=== PATIENT | female | born 1935 | race Caucasian/White ===

== ENCOUNTER 2020-06-02 09:55 | Outpatient (REF) | payer MEDICARE, SELFPAY ==
[2020-06-02 12:09] LABS: Anion Gap 12 (12-20); Carbon Dioxide 31 mmol/L (22-29); Chloride 102 mmol/L (96-108); Potassium 5.5 mmol/l (3.3-5.1); Sodium 139 mmol/L (135-145)
== END 2020-06-02 09:56 | disposition home or self-care (01) ==
LOC: HO.HMGCLDS 09:55
PROVIDERS: PCP Family Medicine; Visit Provider Family Medicine
DX: E87.5 Hyperkalemia (principal)
CPT/HCPCS: 80051

== ENCOUNTER 2020-06-16 10:03 | Outpatient (REF) | payer MEDICARE, SELFPAY ==
--- NOTE | 2020-06-16 10:08 | MM_ITS ---
EXAMINATION: MM SCREENING DIGITAL BREAST TOMOSYNTHESIS, BILATERAL CLINICAL INFORMATION: Screening. Asymptomatic. The lifetime risk of breast cancer based on the Tyrer-Cuzick Model is 0.3%. COMPARISON: Mammography: June 11, 2019 and studies dating back to January 22, 2012 TECHNIQUE: Digital breast tomosynthesis is performed in both the craniocaudal and mediolateral oblique views along with computer-aided detection (CAD). Synthesized 2D images are generated from the tomosynthesis. FINDINGS: There are scattered areas of fibroglandular density (ACR BI-RADS breast composition Category b). There are no significant masses, abnormal calcifications, or other abnormalities. MM/MM tomosynthesis screening BI IMPRESSION: There are no significant changes from prior study. ASSESSMENT: BI-RADS 1: Negative RECOMMENDATION: Routine annual mammography screening. This patient's information was entered into a reminder system with a target due date for their next mammogram.
== END 2020-06-16 10:04 | disposition home or self-care (01) ==
LOC: HO.MAMMO 10:03
PROVIDERS: Visit Provider Family Medicine
DX: Z12.31 Encounter for screening mammogram for malignant neoplasm of breast (principal)
CPT/HCPCS: 77063; 77067

== ENCOUNTER 2020-09-01 09:30 | Outpatient (REF) | payer MEDICARE, SELFPAY ==
[2020-09-01 11:46] LABS: Anion Gap 14 (12-20); Blood Urea Nitrogen 18 mg/dL (9-16); Carbon Dioxide 30 mmol/L (22-29); Chloride 103 mmol/L (96-108); Estimated Glomerular Filt Rate > 60; Sodium 142 mmol/L (135-145)
[2020-09-01 12:12] LABS: Free T4 (Free Thyroxine) 1.24 ng/dL (0.71-1.85)
== END 2020-09-01 09:31 | disposition home or self-care (01) ==
LOC: HO.HMGCLDS 09:30
PROVIDERS: PCP Family Medicine; Visit Provider Family Medicine
DX: I10 Essential (primary) hypertension (principal); E03.9 Hypothyroidism, unspecified
CPT/HCPCS: 36415; 80051; 82565; 84439; 84520

== ENCOUNTER 2020-09-29 13:32 | Outpatient (REF) | payer MEDICARE, SELFPAY ==
[2020-09-29 16:32] LABS: Imm Gran Abs Auto 0.03 X10*3/uL (0.00-0.03); Imm Gran Pct Auto 0.5 % (0.0-0.4); Lymphocytes Absolute Auto 1.2 X10*3/uL (1.2-4.9); MANUAL DIFF FLAG SCAN; Monocytes Absolute Auto 0.5 X10*3/uL (0.1-1.2); SCAN SMEAR FLAG 1
[2020-09-29 16:34] LABS: Basophils Percent Auto 0.3 % (0-2); Eosinophils Percent Auto 0.3 % (0-4); Hematocrit 35.2 % (37-47); Hemoglobin 10.4 g/dl (12.0-16.0); Lymphocytes Percent Auto 20.6 % (20-40); Mean Corpuscular HGB Conc 29.5 g/dl (31.0-35.0); Mean Corpuscular Hemoglobin 20.2 pg (27.0-33.0); Mean Corpuscular Volume 68.3 fL (80-98); Monocytes Percent Auto 8.5 % (2-11); Neutrophils Percent Auto 69.8 % (45-73); PLT CLUMP 1; Red Blood Count 5.15 X10*6/uL (4.20-5.50); Red Cell Distribution Width 16.7 % (11.0-16.0)
[2020-09-29 16:37] LABS: Glucose Urine UA NEG (NEG); Leukocyte Esterase Urine NEG (NEG); Nitrite Urine NEG (NEG); PH 6.5 (5.0-8.0); Urine Blood TRACE (NEG); Urine Ketones 15 MG/DL (NEG); Urine Protein TRACE MG/DL (NEG-TRACE)
[2020-09-29 16:41] LABS: Appearance Urine CLEAR; Color Urine YELLOW
[2020-09-29 16:51] LABS: Alanine Aminotransferase 21 U/L (0-31); Albumin Level 3.8 g/dL (3.5-5.0); Alkaline Phosphatase 94 U/L (39-117); Anion Gap 13 (12-20); Aspartate Amino Transferase 36 U/L (5-31); Bilirubin Total 0.2 mg/dL (0.0-1.0); Blood Urea Nitrogen 13 mg/dL (9-16); C Reactive Protein 1.27 mg/dL (< or = 0.50); Calcium 8.4 mg/dL (8.4-10.2); Carbon Dioxide 28 mmol/L (22-29); Chloride 99 mmol/L (96-108); Estimated Glomerular Filt Rate 54; Glucose Random 119 mg/dL (60-115); Potassium 4.7 mmol/L (3.3-5.1); Sodium 135 mmol/L (135-145); Total Protein 7.1 g/dL (6.5-8.0)
[2020-09-29 16:53] LABS: Bacteria Urine TRACE /LPF; Squamous Epithelial Cell Urine 1+ /LPF; WBC Urine 0 /HPF (0-4)
[2020-09-29 16:59] LABS: PLT ABN DIST 1; Platelet Count 213 X10*3/uL (160-400); White Blood Count 5.8 X10*3/uL (4.8-10.8)
[2020-09-29 17:02] LABS: SLIDE REVIEW VERIFIED
[2020-09-29 17:12] LABS: Ferritin 30 ng/mL (10-250)
[2020-09-29 18:00] LABS: Erythrocyte Sedimentation Rate 22 MM/HR (0-20)
[2020-10-04 06:31] LABS: Calcitonin <2 pg/mL (<=5)
== END 2020-09-29 13:33 | disposition home or self-care (01) ==
LOC: HO.HMGCLDS 13:32
PROVIDERS: PCP Family Medicine; Visit Provider Family Medicine
DX: R53.1 Weakness (principal); R53.83 Other fatigue; R50.9 Fever, unspecified; Z20.822 Contact with and (suspected) exposure to COVID-19
CPT/HCPCS: 36415; 80053; 81001; 82308; 82728; 85025; 85652; 86140; U0003; U0005

== ENCOUNTER 2021-03-29 08:36 | Outpatient (REF) | payer MEDICARE, SELFPAY ==
[2021-03-29 11:34] LABS: Hemoglobin 10.6 g/dl (12.0-16.0); MANUAL DIFF FLAG SCAN; SCAN SMEAR FLAG 1
[2021-03-29 11:36] LABS: Basophils Absolute Auto 0.1 X10*3/uL (0.0-0.2); Eosinophils Absolute Auto 0.5 X10*3/uL (0.0-0.4); Eosinophils Percent Auto 5.6 % (0-4); Hematocrit 35.9 % (37-47); Imm Gran Abs Auto 0.04 X10*3/uL (0.00-0.03); Imm Gran Pct Auto 0.5 % (0.0-0.4); Lymphocytes Absolute Auto 1.7 X10*3/uL (1.2-4.9); Lymphocytes Percent Auto 20.5 % (20-40); Mean Corpuscular HGB Conc 29.5 g/dl (31.0-35.0); Mean Corpuscular Hemoglobin 19.8 pg (27.0-33.0); Monocytes Absolute Auto 0.6 X10*3/uL (0.1-1.2); Monocytes Percent Auto 7.6 % (2-11); Neutrophils Absolute Auto 5.3 X10*3/uL (2.0-8.3); Neutrophils Percent Auto 64.8 % (45-73); PLT CLUMP 1; Red Blood Count 5.36 X10*6/uL (4.20-5.50); Red Cell Distribution Width 17.5 % (11.0-16.0)
[2021-03-29 11:44] LABS: PLT ABN DIST 1
[2021-03-29 11:50] LABS: Anion Gap 16 (12-20); Blood Urea Nitrogen 16 mg/dL (9-16); Carbon Dioxide 27 mmol/L (22-29); Chloride 103 mmol/L (96-108); Estimated Glomerular Filt Rate > 60; Magnesium 2.4 mg/dL (1.6-2.6); Potassium 5.5 mmol/L (3.3-5.1); Rheumatoid Factor < 15.0 IU/mL (<15.0); Sodium 140 mmol/L (135-145)
[2021-03-29 12:17] LABS: Free T4 (Free Thyroxine) 1.34 ng/dL (0.71-1.85)
[2021-03-29 12:29] LABS: Erythrocyte Sedimentation Rate 23 MM/HR (0-20)
[2021-03-29 12:37] LABS: Platelet Count 275 X10*3/uL (160-400); White Blood Count 8.2 X10*3/uL (4.8-10.8)
[2021-03-29 12:38] LABS: SLIDE REVIEW VERIFIED
== END 2021-03-29 08:37 | disposition home or self-care (01) ==
LOC: HO.HMGCLDS 08:36
PROVIDERS: PCP Family Medicine; Visit Provider Family Medicine
DX: I10 Essential (primary) hypertension (principal); E03.9 Hypothyroidism, unspecified; M19.90 Unspecified osteoarthritis, unspecified site
CPT/HCPCS: 36415; 80051; 82565; 83735; 84439; 84520; 85025; 85652; 86431

== ENCOUNTER 2021-04-18 12:32 | Outpatient (REF) | payer MEDICARE, SELFPAY ==
--- NOTE | ~2021-04-18 | US_ITS ---
EXAMINATION: COLOR-FLOW DUPLEX IMAGING OF THE BILATERAL LOWER EXTREMITY ARTERIAL SYSTEM. VELOCITY MEASUREMENTS THROUGHOUT THE FEMORAL ARTERIES WITH PERIPHERAL ARTERIAL TESTING. Interventional Radiologist: Ranjan Lovell M.D., F.S.I.R., F.A.C.R. CLINICAL INFORMATION: This is an 86-year-old female with peripheral vascular disease with claudication. Comparison: Comparison is made to a previous study dated 04/27/2020. That study demonstrated a right ankle-brachial index of 0.63 with elevated velocities in the distal right superficial femoral artery. It also demonstrated a left ankle-brachial index of 0.85 without focal velocity shift on duplex examination. RIGHT FEMORAL RUNOFF VELOCITIES: The right common femoral artery measures 220 cm/s and biphasic. The right profunda femoral artery is 203 cm/s and is biphasic. Right proximal superficial femoral artery measures 159 cm/s and biphasic. Mid superficial femoral artery is 138 cm/s and biphasic. Distal right superficial femoral artery measures 230 cm/s and is biphasic. Right popliteal velocity measures 89 cm/s and is biphasic. The posterior tibial artery velocity measures 36 cm/s and was monophasic. The right ankle-brachial index is 0.81. LEFT FEMORAL RUNOFF VELOCITIES: The left common femoral artery measures 172 cm/s and biphasic. The left profunda femoral artery is 183 cm/s and is biphasic. Left proximal superficial femoral artery measures 170 cm/s and biphasic. Mid superficial femoral artery is 166 cm/s and biphasic. Distal left superficial femoral artery measures 149 cm/s and is biphasic. Left popliteal velocity measures 90 cm/s and is triphasic. The posterior tibial artery velocity measures 68 cm/s and was monophasic. The left ankle-brachial index is 0.57. US/US arterial duplex LE BI IMPRESSION: 1. There is worsening hemodynamically significant disease within the right lower extremity. There is a high-grade stenosis in the right common femoral artery which is now apparent. There appears to be a high-grade hemodynamically significant stenosis in the distal right superficial femoral artery which was present previously. Overall, this study appears worse when compared to the previous study dated 04/27/2020 and 01/02/2017. However, the ankle-brachial index appears to be improved compared to the previous study. Previously, this measured 0.63 and on the current study it measures 0.81. 2. There is mild hemodynamically significant disease within the left lower extremity by duplex ultrasound without focal area of high-grade stenosis. However, the left ankle-brachial index appears worse and now measures 0.57. Previously, this measured 0.85.
== END 2021-04-18 12:33 | disposition home or self-care (01) ==
LOC: HO.US 12:32
PROVIDERS: PCP Family Medicine; Visit Provider Surgery Vascular Surgery
DX: I73.9 Peripheral vascular disease, unspecified (principal)
CPT/HCPCS: 93923; 93925

== ENCOUNTER → 2021-04-19 10:18 | Outpatient (BNVA) | payer MEDICARE, SELFPAY | PROVIDERS: PCP Family Medicine; Referring Provider Family Medicine; Visit Provider Surgery Vascular Surgery | DX: I73.9 Peripheral vascular disease, unspecified (principal); M72.2 Plantar fascial fibromatosis; I10 Essential (primary) hypertension; E78.00 Pure hypercholesterolemia, unspecified; E03.9 Hypothyroidism, unspecified; Z88.8 Allergy status to other drugs, medicaments and biological substances | CPT/HCPCS: 99212 ==

== ENCOUNTER 2021-04-20 06:03 | Day surgery (SDC) | payer MEDICARE, SELFPAY ==
[2021-04-20] VITALS (7 sets, daily range): BP systolic 133–170; BP diastolic 42–71; PULSE 81–88; RESP 16–20; TEMP 36.9; O2SAT 95–99; BMI 27.9
[2021-04-20 06:31] LABS: MANUAL DIFF FLAG NO
[2021-04-20 06:38] LABS: Basophils Absolute Auto 0.1 X10*3/uL (0.0-0.2); Eosinophils Absolute Auto 0.5 X10*3/uL (0.0-0.4); Eosinophils Percent Auto 5.8 % (0-4); Hematocrit 34.6 % (37-47); Hemoglobin 10.4 g/dl (12.0-16.0); Imm Gran Abs Auto 0.08 X10*3/uL (0.00-0.03); Imm Gran Pct Auto 0.9 % (0.0-0.4); Lymphocytes Absolute Auto 2.2 X10*3/uL (1.2-4.9); Lymphocytes Percent Auto 25.4 % (20-40); Mean Corpuscular HGB Conc 30.1 g/dl (31.0-35.0); Mean Corpuscular Hemoglobin 19.7 pg (27.0-33.0); Mean Corpuscular Volume 65.7 fL (80-98); Monocytes Absolute Auto 0.7 X10*3/uL (0.1-1.2); Monocytes Percent Auto 8.2 % (2-11); Neutrophils Absolute Auto 5.2 X10*3/uL (2.0-8.3); Neutrophils Percent Auto 58.7 % (45-73); Platelet Count 370 X10*3/uL (160-400); Red Blood Count 5.27 X10*6/uL (4.20-5.50); Red Cell Distribution Width 17.4 % (11.0-16.0); White Blood Count 8.8 X10*3/uL (4.8-10.8)
[2021-04-20] MEDS: 0.9 % Sodium Chloride 1,000 ML 100 ML IVCONT (06:43)
[2021-04-20 06:48] LABS: Anion Gap 12 (12-20); Blood Urea Nitrogen 13 mg/dL (9-16); Calcium 9.5 mg/dL (8.4-10.2); Carbon Dioxide 28 mmol/L (22-29); Chloride 102 mmol/L (96-108); Creatinine Clr Calc Pharmacy 53.1; Estimated Glomerular Filt Rate > 60; Glucose Random 107 mg/dL (60-115); Potassium 4.8 mmol/L (3.3-5.1); Sodium 137 mmol/L (135-145)
[2021-04-20 06:52] LABS: Prothrombin Time 11.1 SEC (9.9-13.0)
[2021-04-20 06:55] LABS: Partial Thromboplastin Time 31.8 SEC (24.1-38.0)
--- NOTE | 2021-04-20 09:47 | P.OP_ITS ---
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 Ultrasound-guided left common femoral access 2. Aortogram with bilateral lower extremity runoff 3. right posterior tibial plasty 4. right SFA plasty and stent 5. left common iliac stent Surgeon:Gonsalo Tobin M.D. Body Trimmer Upholsterer:None Anesthesia: Local with moderate conscious sedation for a total of 75 minutes, performed by or Specimens:none Drains:none Estimated blood loss: Less than 10 ml Indications: very pleasant 86-year-old female with activity limiting claudication presents for endovascular intervention. 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 The patient has signed the informed consent after reviewing risks, complications, benefits, and alternatives previously discussed with the patient in my office. The patient was given the opportunity to ask any additional questions or voice any concerns. All questions were answered to the patient's satisfaction. Procedure in detail: Patient was brought to the angiography suite prior to which a time-out was called for patient identification and site verification. Bilateral groins were prepped and draped in the standard surgical fashion. Under ultrasound guidance Left common femoral was punctured with micro puncture needle and wire. Subsequently a precision 4 Armenian sheath was then placed. Xambalason wire was advanced to the level of the aorta. 4 Armenian Flush catheter was brought up and parked at the level of the renal arteries. Aortogram was then undertaken. Catheter was brought down to the level of the iliac bifurcation. Iliacs were subsequently imaged. Catheter was then brought in up and over to the right side SFA. Runoff study was then undertaken. at this point the disease at the trifurcation was recognized along with SFA disease. We administered 5000 units of systemic heparin. After 5 minutes of circulation time up and over 6 Armenian sheath was then placed. We then advanced the wire across this stenosis at the origin of the trifurcation. We placed a balloon from the trifurcation into the posterior tibial artery. This was plasty with a 3 x 20 balloon. We then turned our attention to the SFA. The distal SFA and [place] had a moderate stenosis. This was 1st plasty D with a 5 x 40 balloon. And then a 5 x 40 stent was then placed. This was a Zabu Studiotronic Ev 3 stent we then turned our attention to the mid SFA which had moderate disease. This was 1st plasty with a 5 x 40 regular balloon. We then plasty this area with a 5 x 40 drug coated balloon. This is brought into position in under 3 minutes and insufflated for a total of 3 minutes in duration. Once this was accomplished we brought catheter wire sheath back to the ipsilateral side. The left common iliac had a high-grade stenosis. This was 1st plasty with an 8 x 20 balloon. And subsequently a 8 x 17 visi Pro stent was then placed. Once this was accomplished runoff study was then undertaken through the sheath. StarClose closure device was deployed. Patient tolerated the procedure well. Returned to recovery with stable vitals. Interpretation of films: 1. Ultrasound demonstrates appropriate femoral puncture. Image of which was saved. 2. Aortogram demonstrates appropriate caliber aorta. Minimal disease. Appropriate take-off of the renals. 3. Iliac images demonstrate Disease at the bifurcation. High-grade stenosis at the left common iliac. 4. Right side demonstrated good flow through the common femoral into the profundus. Mid SFA had a moderate stenosis distal SFA at [place] had a high-grade stenose. there was also a high-grade stenosis at the origin of the trifurcation. Completion angiogram demonstrated excellent flow all the way through the SFA into the 3 vessel runoff 5. left lower extremity study demonstrated disease at the common iliac. Good flow through the common femoral and profundus SFA mid portion had a moderate wilda nosis with good flow all the way down with good 3 vessel runoff. Vessels were smaller in caliber than expected. Conclusion: 1. Successful right posterior tibial plasty. Successful right SFA plasty and stent. 2. Successful left common iliac stent. 3. Due to the use of a drug coated balloon a minimum of 6 months of aspirin and Plavix will be required. This note is constructed using voice recognition software. While every effort has been made to ensure accuracy, notched blade loader errors may have been included. Thank you for allowing me to participate in the care of your patient. Yours sincerely, Gonsalo Tobin MD, FACS, R.P.V.I.
[2021-04-20] MEDS: Clopidogrel Bisulfate 300 MG TABLET PO (10:03)
== END 2021-04-20 11:50 | disposition home or self-care (01) ==
PROVIDERS: PCP Family Medicine; Visit Provider Surgery Vascular Surgery
DX: I70.211 Atherosclerosis of native arteries of extremities with intermittent claudication, right leg (principal)
CPT/HCPCS: 36415; 37221; 37226; 37228; 76937; 80048; 85025; 85610; 85730; 99152; 99153; C1725; C1760; C1769; C1876; C1887; J2250; J3010; Q9967

== ENCOUNTER → 2021-05-03 13:30 | Outpatient (BNVA) | payer MEDICARE, SELFPAY | PROVIDERS: PCP Family Medicine; Visit Provider Surgery Vascular Surgery | DX: I73.9 Peripheral vascular disease, unspecified (principal) | CPT/HCPCS: 99212 ==

== ENCOUNTER 2021-05-31 11:01 | Outpatient (REF) | payer MEDICARE, SELFPAY ==
[2021-05-31 14:29] LABS: Anion Gap 11 (12-20); Carbon Dioxide 28 mmol/L (22-29); Chloride 104 mmol/L (96-108); Potassium 5.4 mmol/L (3.3-5.1); Sodium 138 mmol/L (135-145)
== END 2021-05-31 11:02 | disposition home or self-care (01) ==
LOC: HO.HMGCLDS 11:01
PROVIDERS: PCP Family Medicine; Visit Provider Family Medicine
DX: I10 Essential (primary) hypertension (principal)
CPT/HCPCS: 36415; 80051

== ENCOUNTER 2021-07-01 10:01 | Outpatient (REF) | payer MEDICARE, SELFPAY ==
--- NOTE | ~2021-07-01 | MM_ITS ---
EXAMINATION: MM SCREENING DIGITAL BREAST TOMOSYNTHESIS, BILATERAL CLINICAL INFORMATION: Screening. Asymptomatic. COMPARISON: Mammography: 06/16/2020, 06/11/2019, 04/24/2018 TECHNIQUE: Digital breast tomosynthesis is performed in both the craniocaudal and mediolateral oblique views along with computer-aided detection (CAD). Synthesized 2D images are generated from the tomosynthesis. FINDINGS: There are scattered areas of fibroglandular density (ACR BI-RADS breast composition Category b). There are no significant masses, abnormal calcifications, or other abnormalities. Parenchymal pattern is similar to prior exams. No developing density. The axilla and skin contours are unremarkable. MM/MM tomosynthesis screening BI IMPRESSION: No mammographic evidence of malignancy. ASSESSMENT: BI-RADS 1: Negative RECOMMENDATION: Routine annual mammography screening. This patient's information was entered into a reminder system with a target due date for their next mammogram.
== END 2021-07-01 10:02 | disposition home or self-care (01) ==
LOC: HO.MAMMO 10:01
PROVIDERS: Visit Provider Family Medicine
DX: Z12.31 Encounter for screening mammogram for malignant neoplasm of breast (principal)
CPT/HCPCS: 77063; 77067

== ENCOUNTER 2021-08-02 10:18 | Outpatient (REF) | payer MEDICARE, SELFPAY ==
--- NOTE | ~2021-08-02 | US_ITS ---
EXAMINATION: COLOR-FLOW DUPLEX IMAGING OF THE BILATERAL LOWER EXTREMITY ARTERIAL SYSTEM. VELOCITY MEASUREMENTS THROUGHOUT THE FEMORAL ARTERIES WITH PERIPHERAL ARTERIAL TESTING. Interventional Radiologist: Ranjan Lovell M.D., F.S.I.R., F.A.C.R. CLINICAL INFORMATION: This is an 86-year-old female with peripheral vascular disease with claudication. The patient is reported to have undergone right superficial femoral artery intraosseous stent placement as well as left common iliac artery angioplasty and stent placement. The patient is also status post right posterior tibial artery angioplasty. Comparison: Comparison is made to a previous study dated 04/18/2021. RIGHT FEMORAL RUNOFF VELOCITIES: The right common femoral artery measures 147 cm/s and biphasic. Previously, 220 cm/s and biphasic. The right profunda femoral artery is 146 cm/s and biphasic. Previously, 203 cm/s and is biphasic. Right proximal superficial femoral artery measures 217 cm/s and biphasic. Previously, 159 cm/s and biphasic. Mid superficial femoral artery is 157 cm/s and biphasic. Previously, 138 cm/s and biphasic. Distal right superficial femoral artery measures 117 cm/s and biphasic. Previously, 230 cm/s and is biphasic. Right popliteal velocity measures 121 cm/s and biphasic. Previously, 89 cm/s and is biphasic. The posterior tibial artery velocity measures 77 cm/s and biphasic. Previously, 36 cm/s and was monophasic. The right ankle-brachial index is 0.91. Previously, 0.81. There is a probable right Joel's cyst measuring 4.8 x 1.0 x 2.8 cm. RIGHT SUPERFICIAL FEMORAL ARTERY STENT VELOCITIES: [place] artery proximal to the stent: 159 cm/s and biphasic. Proximal stent: 190 cm/s and biphasic. Mid stent: 159 cm/s and biphasic. Distal stent: 128 cm/s and biphasic. [place] artery distal to the stent: 118 cm/s and biphasic. RIGHT POSTERIOR TIBIAL ARTERY VELOCITIES: [place] ARTERY PROXIMAL TO THE POSTERIOR TIBIAL ARTERY: 76 CM/S AND BIPHASIC. PROXIMAL POSTERIOR TIBIAL ARTERY: 70 CM/S AND BIPHASIC. MID VESSEL: 66 CM/S AND BIPHASIC. DISTAL VESSEL: 72 CM/S AND BIPHASIC. [place] ARTERY DISTAL TO THE POSTERIOR TIBIAL ARTERY: 70 CM/S AND BIPHASIC. LEFT FEMORAL RUNOFF VELOCITIES: The left common femoral artery measures 160 cm/s and biphasic. Previously, 172 cm/s and biphasic. The left profunda femoral artery is 127 cm/s and biphasic. Previously, 183 cm/s and is biphasic. Left proximal superficial femoral artery measures 166 cm/s and biphasic. Previously, 170 cm/s and biphasic. Mid superficial femoral artery is 139 cm/s and biphasic. Previously, 166 cm/s and biphasic. Distal left superficial femoral artery measures 108 cm/s. Biphasic. Previously, 149 cm/s and is biphasic. Left popliteal velocity measures 103 cm/s and biphasic. Previously, 90 cm/s and is triphasic. The posterior tibial artery velocity measures 113 cm/s and biphasic. Previously, 68 cm/s and was monophasic. The left ankle-brachial index is 0.92. Previously, 0.57. US/US JOSE MARTIN complete IMPRESSION: 1. The right superficial femoral artery stent appears patent. 2. The right posterior tibial artery angioplasty site appears patent. 3. There is mild elevation of the velocities within the proximal right superficial femoral artery which may represent hemodynamically significant stenosis above the stent. However, the ankle-brachial index appears improved on the right status post stent placement. 4. The ankle-brachial index appears improved on the left which may be secondary to the previous left iliac stenting. This area could not be visualized with duplex ultrasound.
--- NOTE | ~2021-08-02 | US_ITS ---
EXAMINATION: COLOR-FLOW DUPLEX IMAGING OF THE BILATERAL LOWER EXTREMITY ARTERIAL SYSTEM. VELOCITY MEASUREMENTS THROUGHOUT THE FEMORAL ARTERIES WITH PERIPHERAL ARTERIAL TESTING. Interventional Radiologist: Ranjan Lovell M.D., F.S.I.R., F.A.C.R. CLINICAL INFORMATION: This is an 86-year-old female with peripheral vascular disease with claudication. The patient is reported to have undergone right superficial femoral artery intraosseous stent placement as well as left common iliac artery angioplasty and stent placement. The patient is also status post right posterior tibial artery angioplasty. Comparison: Comparison is made to a previous study dated 04/18/2021. RIGHT FEMORAL RUNOFF VELOCITIES: The right common femoral artery measures 147 cm/s and biphasic. Previously, 220 cm/s and biphasic. The right profunda femoral artery is 146 cm/s and biphasic. Previously, 203 cm/s and is biphasic. Right proximal superficial femoral artery measures 217 cm/s and biphasic. Previously, 159 cm/s and biphasic. Mid superficial femoral artery is 157 cm/s and biphasic. Previously, 138 cm/s and biphasic. Distal right superficial femoral artery measures 117 cm/s and biphasic. Previously, 230 cm/s and is biphasic. Right popliteal velocity measures 121 cm/s and biphasic. Previously, 89 cm/s and is biphasic. The posterior tibial artery velocity measures 77 cm/s and biphasic. Previously, 36 cm/s and was monophasic. The right ankle-brachial index is 0.91. Previously, 0.81. There is a probable right Joel's cyst measuring 4.8 x 1.0 x 2.8 cm. RIGHT SUPERFICIAL FEMORAL ARTERY STENT VELOCITIES: [place] artery proximal to the stent: 159 cm/s and biphasic. Proximal stent: 190 cm/s and biphasic. Mid stent: 159 cm/s and biphasic. Distal stent: 128 cm/s and biphasic. [place] artery distal to the stent: 118 cm/s and biphasic. RIGHT POSTERIOR TIBIAL ARTERY VELOCITIES: [place] ARTERY PROXIMAL TO THE POSTERIOR TIBIAL ARTERY: 76 CM/S AND BIPHASIC. PROXIMAL POSTERIOR TIBIAL ARTERY: 70 CM/S AND BIPHASIC. MID VESSEL: 66 CM/S AND BIPHASIC. DISTAL VESSEL: 72 CM/S AND BIPHASIC. [place] ARTERY DISTAL TO THE POSTERIOR TIBIAL ARTERY: 70 CM/S AND BIPHASIC. LEFT FEMORAL RUNOFF VELOCITIES: The left common femoral artery measures 160 cm/s and biphasic. Previously, 172 cm/s and biphasic. The left profunda femoral artery is 127 cm/s and biphasic. Previously, 183 cm/s and is biphasic. Left proximal superficial femoral artery measures 166 cm/s and biphasic. Previously, 170 cm/s and biphasic. Mid superficial femoral artery is 139 cm/s and biphasic. Previously, 166 cm/s and biphasic. Distal left superficial femoral artery measures 108 cm/s. Biphasic. Previously, 149 cm/s and is biphasic. Left popliteal velocity measures 103 cm/s and biphasic. Previously, 90 cm/s and is triphasic. The posterior tibial artery velocity measures 113 cm/s and biphasic. Previously, 68 cm/s and was monophasic. The left ankle-brachial index is 0.92. Previously, 0.57. US/US arterial duplex LE BI IMPRESSION: 1. The right superficial femoral artery stent appears patent. 2. The right posterior tibial artery angioplasty site appears patent. 3. There is mild elevation of the velocities within the proximal right superficial femoral artery which may represent hemodynamically significant stenosis above the stent. However, the ankle-brachial index appears improved on the right status post stent placement. 4. The ankle-brachial index appears improved on the left which may be secondary to the previous left iliac stenting. This area could not be visualized with duplex ultrasound.
== END 2021-08-02 10:19 | disposition home or self-care (01) ==
LOC: HO.US 10:18
PROVIDERS: PCP Family Medicine; Visit Provider Surgery Vascular Surgery
DX: I73.9 Peripheral vascular disease, unspecified (principal)
CPT/HCPCS: 93923; 93925

== ENCOUNTER → 2021-08-04 09:47 | Outpatient (BNVA) | payer MEDICARE, SELFPAY | PROVIDERS: PCP Student in an Organized Health Care Education/Training Program; Visit Provider Surgery Vascular Surgery | DX: I73.9 Peripheral vascular disease, unspecified (principal) | CPT/HCPCS: 99212 ==

== ENCOUNTER → 2021-09-30 09:13 | Outpatient (REF) | payer MEDICARE, SELFPAY ==
--- NOTE | 2021-09-30 09:16 | CA_ITS ---
Transthoracic Echocardiogram Patient (Last, First, Middle): Jaja Garcia, Gender: Female Date of : 1935 Age: 86 Procedure Date: 09/30/2021 Procedure Type: Transthoracic Echocardiogram Location: OP Height: 165.1 cm Weight: 72.12 kg BSA: 1.79 m2 Heart Rate: bpm BP: 123 / 80 mmHg Wound Care Physician: YR/TO Referring MD: Rio Chang MD Symptoms: I34.0 NON RHEU MV INSUFF Study Quality: Fair Conclusions: - Normal left ventricular size and systolic function. There is mildly increased left ventricular wall thickness. The visually estimated ejection fraction is between 60-65%. - Normal right ventricular cavity size and systolic function. - There is mild mitral valve regurgitation. - There is mild to moderate tricuspid valve regurgitation. Findings Left Ventricle Normal left ventricular size and systolic function. There is mildly increased left ventricular wall thickness. The visually estimated ejection fraction is between 60-65%. There is no evidence of regional wall motion abnormalities. Abnormal diastolic function is noted. Spectral Doppler is indicative of an impaired relaxation filling pattern. E/E prime ratio is between 8 and 15 consistent with indeterminate filling pressures. Right Ventricle Normal right ventricular cavity size and systolic function. Atria The left atrium is normal in size. Aortic Valve There is a normal trileaflet aortic valve. There is mild calcification of the aortic valve. There is mild thickening of the aortic valve. Mitral Valve The mitral valve appears normal. There is mild mitral valve regurgitation. There is no mitral valve stenosis. Pulmonic Valve Normal pulmonic valve structure and function. There is trace pulmonic valve regurgitation. Tricuspid Valve There is mild to moderate tricuspid valve regurgitation. Normal right atrial pressure. Mild pulmonary hypertension is present. Great Vessels All visible segments of the aorta are normal in size. The visualized portions of the pulmonary artery and branches are normal. Venous The inferior vena cava is normal in size and collapses greater than 50% with inspiration. Pericardium/Pleural There is no evidence of pericardial effusion. Measurements 2D Linear Measurements IVSd: 0.95 0.6-0.9/0.6-1.0 cm LVIDd: 3.78 3.9-5.3/4.2-5.9 cm LVIDd Index: 2.11 2.4-3.2/2.2-3.1 cm/m2 LVIDs: 2.69 2.0-3.6 cm LVPWd: 0.92 0.7-1.1 cm Ao Root: 3.00 2.1-3.5 cm LA Diam: 4.10 2.7-3.8/3.0-4.0 cm LAIDs Index: 2.29 1.5-2.3 cm/m2 LV Mass: 131.11 67-162/88-224 g LV Mass Index: 73.24 43-95/49-115 g/m2 LVOT Diam: 1.90 3.0+(-)1.3 cm 2D Systolic Function EF 4C: 56.40 >55% EF 2C: 60.10 >55% EF BiP: 57.50 >55% Mitral Valve MV Pk E: 0.86 MV PK A: 0.76 MV Decel Time: 255.00 E/A: 1.10 E'Lateral: 7.18 E'Medial: 5.44 E/E' Med: 15.80 E/E' Lat: 11.90 PHT: 75.00 MVA PHT: 2.93 Decel [place]: 3.37 Aortic Valve AoV Pk David: 1.42 AoV Mn David: 0.94 AoV VTI: 0.33 AoV Pk Grad: 8.00 Aov Mn Grad: 4.00 HARI Cont.VTI: 2.56 LVOT LVOT Pk David: 1.17 LVOT Mn David: 0.85 LVOT VTI: 0.30 LVOT Pk Grad: 5.00 LVOT Mn Grad: 3.00 LVOT Diam: 1.90 LVOT Area: 2.84 Diastolic Function MV Pk E: 0.86 MV Pk A: 0.76 E/A: 1.10 E'Medial: 5.44 E/E' Med: 15.80 E' Laterial: 7.18 E/E' Lat: 11.90 Right Ventricle TAPSE (mm): 2.48 TVS' David: 9.46 Tricuspid Valve TR Pk David: 3.01 TR Pk Grad: 36.00 RA Press: 3.00 RVSP: 40.00 Great Vessels Aorta Ao Root-2D: 3.00 2.0-3.7 cm Ao Asc: 3.00 2.1-3.4 cm Ao Arch: 3.30 Updated in Other Vendor System with Status of Final Noel Brandon MD electronically signed on 10/02/2021 7:00:15 PM with status of Final
== END ==
LOC: HO.CARD 09:13
PROVIDERS: PCP Family Medicine; Visit Provider Family Medicine
DX: I34.0 Nonrheumatic mitral (valve) insufficiency (principal)
CPT/HCPCS: 93306

== ENCOUNTER 2021-10-19 08:27 | Outpatient (REF) | payer MEDICARE, SELFPAY ==
[2021-10-19 11:44] LABS: Free T4 (Free Thyroxine) 1.15 ng/dL (0.71-1.85)
[2021-10-19 11:59] LABS: Anion Gap 10 (12-20); Blood Urea Nitrogen 13 mg/dL (9-16); Carbon Dioxide 29 mmol/L (22-29); Chloride 104 mmol/L (96-108); Estimated Glomerular Filt Rate > 60; Magnesium 2.4 mg/dL (1.6-2.6); Potassium 5.2 mmol/L (3.3-5.1); Sodium 138 mmol/L (135-145)
== END 2021-10-19 08:28 | disposition home or self-care (01) ==
LOC: HO.HMGCLDS 08:27
PROVIDERS: Visit Provider Family Medicine
DX: I10 Essential (primary) hypertension (principal); E03.9 Hypothyroidism, unspecified
CPT/HCPCS: 36415; 80051; 82565; 83735; 84439; 84520

== ENCOUNTER 2022-02-09 13:10 | Outpatient (REF) | payer MEDICARE, SELFPAY ==
--- NOTE | ~2022-02-09 | US_ITS ---
EXAMINATION: Noninvasive assessment of the bilateral lower extremities with ARTERIAL DUPLEX and ANKLE BRACHIAL INDICES (ABIs). ? CLINICAL INFORMATION: Peripheral vascular disease, history of prior right superficial femoral artery stent ? TECHNIQUE: Duplex Doppler techniques with waveform analysis and measurement of velocities in the bilateral common femoral, profunda femoris, superficial femoral, popliteal and tibial arteries were performed. Additionally, ankle pulse volume recordings, ankle pressure measurements and ankle brachial indices were obtained of the lower extremity arterial system bilaterally. The study was performed only at rest. ? COMPARISON: Duplex ultrasound from 08/02/2021 ? FINDINGS: ? DIRECT DUPLEX DOPPLER FINDINGS: ? RIGHT LEG: Common femoral artery:?119 cm/s, phasicity: Biphasic Profunda femoris artery:??74.5 cm/s, phasicity: Biphasic Superficial femoral artery (proximal):?281 cm/s, previously measuring 217 cm/s. Phasicity: Monophasic Superficial femoral artery (mid):?178 cm/s, phasicity: Monophasic Superficial femoral artery (distal):?Stent is present with velocities as follows: Proximal to stent: 150 cm/s, monophasic Proximal stent: 169 cm/s, monophasic Mid stent: 229 cm/s, monophasic Distal stent: 240 cm/s, biphasic Distal to the stent: 212 cm/s, monophasic Popliteal artery:?127 cm/s, phasicity: Biphasic Posterior tibial artery:?73.5 cm/s, phasicity: Monophasic Peroneal artery:?71.1 cm/s, phasicity: Monophasic ? LEFT LEG: Common femoral artery:?169 cm/s, phasicity: Biphasic Profunda femoris artery:?188?cm/s, phasicity: Biphasic Superficial femoral artery (proximal):?177?cm/s, phasicity: Biphasic Superficial femoral artery (mid):?157 cm/s, phasicity: Biphasic Superficial femoral artery (distal):?127?cm/s, phasicity: Biphasic Popliteal artery:?108?cm/s, phasicity: Biphasic Posterior tibial artery:?106?cm/s, phasicity: Monophasic Peroneal artery:?99.2 cm/s, phasicity: Biphasic ANKLE-BRACHIAL INDEX: ? Right: 0.9?, previously measuring 0.91 Left: 0.93, previously measuring 0.92 ? ANKLE PRESSURES: ? Right: PT 139, DP?128?? Left: PT?144, DP?135?? ? ANKLE PVR WAVEFORMS: ? Right: Mildly dampened Left: Mildly dampened? ? Other: There is a Joel's cyst in the right popliteal fossa measuring 2.5 x 1.0 x 2.7 cm ? Right leg:???Low-normal ankle-brachial index with mildly dampened pulse volume waveform. Elevated velocity seen in the proximal right superficial femoral artery which appears grossly unchanged and likely represents a mild stenosis. Stent in the distal superficial femoral artery is patent with mildly elevated velocities which could represent some mild in-stent restenosis ? Left leg:???Low-normal ankle-brachial index with mildly dampened pulse volume waveform. Arterial duplex of the left lower extremity demonstrates normal velocities and waveforms. No hemodynamically significant stenosis or occlusion. No significant change compared to the prior exam ? ?? JOSE MARTIN Reference: - >1.4 = calcified vessels - 0.9 - 1.4 = normal - no significant arterial disease - 0.7 - 0.89 = mild peripheral arterial disease - 0.51 - 0.69 = moderate peripheral arterial disease - ? 0.50 = severe peripheral arterial disease - < .30 = critical arterial disease US/US JOSE MARTIN complete IMPRESSION: ?
== END 2022-02-09 13:11 | disposition home or self-care (01) ==
LOC: HO.US 13:10
PROVIDERS: PCP Family Medicine; Visit Provider Surgery Vascular Surgery
DX: I73.9 Peripheral vascular disease, unspecified (principal); M71.21 Synovial cyst of popliteal space [Baker], right knee
CPT/HCPCS: 93923; 93925

== ENCOUNTER 2022-02-22 08:13 | Outpatient (REF) | payer MEDICARE, SELFPAY ==
[2022-02-22 11:35] LABS: MANUAL DIFF FLAG NO
[2022-02-22 11:45] LABS: Basophils Absolute Auto 0.1 X10*3/uL (0.0-0.2); Basophils Percent Auto 0.9 % (0-2); Eosinophils Absolute Auto 0.5 X10*3/uL (0.0-0.4); Eosinophils Percent Auto 6.5 % (0-4); Hematocrit 31.5 % (37.0-47.0); Hemoglobin 8.9 g/dl (12.0-16.0); Imm Gran Abs Auto 0.03 X10*3/uL (0.00-0.03); Imm Gran Pct Auto 0.4 % (0.0-0.4); Lymphocytes Absolute Auto 1.7 X10*3/uL (1.2-4.9); Lymphocytes Percent Auto 20.5 % (20-40); Mean Corpuscular HGB Conc 28.3 g/dl (31.0-35.0); Mean Corpuscular Hemoglobin 17.5 pg (27.0-33.0); Mean Platelet Volume 10.7 fL (9.4-12.3); Monocytes Absolute Auto 0.6 X10*3/uL (0.1-1.2); Monocytes Percent Auto 7.2 % (2-11); Neutrophils Absolute Auto 5.2 x10*3/uL (2.0-8.3); Neutrophils Percent Auto 64.5 % (45-73); Platelet Count 358 X10*3/uL (160-400); Red Blood Count 5.08 X10*6/uL (4.20-5.50); Red Cell Distribution Width 19.9 % (11.0-16.0); White Blood Count 8.1 X10*3/uL (4.8-10.8)
[2022-02-22 12:21] LABS: Alanine Aminotransferase 10 U/L (0-31); Albumin Level 3.9 g/dL (3.5-5.0); Alkaline Phosphatase 114 U/L (39-117); Anion Gap 14 (12-20); Aspartate Amino Transferase 17 U/L (5-31); Bilirubin Total 0.4 mg/dL (0.0-1.0); Blood Urea Nitrogen 16 mg/dL (9-16); Calcium 8.9 mg/dL (8.4-10.2); Carbon Dioxide 26 mmol/L (22-29); Chloride 104 mmol/L (96-108); Estimated Glomerular Filt Rate > 60; Glucose Random 103 mg/dL (60-115); Potassium 5.2 mmol/L (3.3-5.1); Sodium 139 mmol/L (135-145); Total Protein 7.6 g/dL (6.5-8.0)
== END 2022-02-22 08:14 | disposition home or self-care (01) ==
LOC: HO.HMGCLDS 08:13
PROVIDERS: Visit Provider Family Medicine
DX: R53.1 Weakness (principal); R27.0 Ataxia, unspecified
CPT/HCPCS: 36415; 80053; 85025

== ENCOUNTER 2022-02-23 11:05 | Outpatient (REF) | payer MEDICARE, SELFPAY ==
[2022-02-23 14:04] LABS: Iron 23 mcg/dL (30-160); Percent Iron Saturation 6 % (15-50); Total Iron Binding Capacity 399 mcg/dL (228-428); Unsaturated Iron Binding 376 ug/dL
[2022-02-23 14:18] LABS: Ferritin 13 ng/mL (10-250)
== END 2022-02-23 11:06 | disposition home or self-care (01) ==
LOC: HO.HMGCLDS 11:05
PROVIDERS: Visit Provider Family Medicine
DX: D64.9 Anemia, unspecified (principal)
CPT/HCPCS: 36415; 82728; 83540

== ENCOUNTER 2022-03-07 | Outpatient (REF) | payer MEDICARE, SELFPAY | END 2022-03-07 00:01 | LOC: CF | PROVIDERS: Visit Provider Surgery Vascular Surgery | DX: I73.9 Peripheral vascular disease, unspecified (principal) | CPT/HCPCS: 99212 ==

== ENCOUNTER 2022-03-14 09:10 | Outpatient (REF) | payer MEDICARE, SELFPAY ==
[2022-03-14 11:35] LABS: MANUAL DIFF FLAG NO
[2022-03-14 11:44] LABS: Basophils Absolute Auto 0.1 X10*3/uL (0.0-0.2); Basophils Percent Auto 0.9 % (0-2); Eosinophils Absolute Auto 0.6 X10*3/uL (0.0-0.4); Eosinophils Percent Auto 7.8 % (0-4); Hematocrit 34.3 % (37.0-47.0); Hemoglobin 9.7 g/dl (12.0-16.0); Imm Gran Abs Auto 0.03 X10*3/uL (0.00-0.03); Imm Gran Pct Auto 0.4 % (0.0-0.4); Lymphocytes Absolute Auto 1.3 X10*3/uL (1.2-4.9); Lymphocytes Percent Auto 16.6 % (20-40); Mean Corpuscular HGB Conc 28.3 g/dl (31.0-35.0); Mean Corpuscular Hemoglobin 17.9 pg (27.0-33.0); Monocytes Absolute Auto 0.5 X10*3/uL (0.1-1.2); Monocytes Percent Auto 6.4 % (2-11); Neutrophils Absolute Auto 5.2 x10*3/uL (2.0-8.3); Neutrophils Percent Auto 67.9 % (45-73); Platelet Count 327 X10*3/uL (160-400); Red Blood Count 5.41 X10*6/uL (4.20-5.50); Red Cell Distribution Width 23.6 % (11.0-16.0); White Blood Count 7.7 X10*3/uL (4.8-10.8)
[2022-03-14 11:50] LABS: Mean Corpuscular Volume 63.4 fL (80.0-98.0)
[2022-03-14 12:11] LABS: Iron 41 mcg/dL (30-160); Percent Iron Saturation 11 % (15-50); Total Iron Binding Capacity 361 mcg/dL (228-428); Unsaturated Iron Binding 320 ug/dL
== END 2022-03-14 09:11 | disposition home or self-care (01) ==
LOC: HO.HMGCLDS 09:10
PROVIDERS: Visit Provider Family Medicine
DX: D50.9 Iron deficiency anemia, unspecified (principal)
CPT/HCPCS: 36415; 83540; 85025

== ENCOUNTER 2022-05-03 08:22 | Outpatient (REF) | payer MEDICARE, SELFPAY ==
--- NOTE | ~2022-05-03 | XR_ITS ---
EXAMINATION: XR CHEST CLINICAL INFORMATION: Cough. COMPARISON: None TECHNIQUE: 2 views of the chest were obtained. FINDINGS: No significant abnormality is noted involving the heart, lungs, mediastinum, bony thorax or soft tissues. XR/XR chest 2V IMPRESSION: No acute cardiopulmonary process.
[2022-05-03 11:35] LABS: Basophils Absolute Auto 0.1 X10*3/uL (0.0-0.2); Basophils Percent Auto 0.9 % (0-2); Eosinophils Absolute Auto 0.4 X10*3/uL (0.0-0.4); Eosinophils Percent Auto 5.3 % (0-4); Hematocrit 38.1 % (37.0-47.0); Hemoglobin 11.2 g/dl (12.0-16.0); Imm Gran Abs Auto 0.03 X10*3/uL (0.00-0.03); Imm Gran Pct Auto 0.4 % (0.0-0.4); Lymphocytes Absolute Auto 1.6 X10*3/uL (1.2-4.9); Lymphocytes Percent Auto 20.2 % (20-40); MANUAL DIFF FLAG SCAN; Mean Corpuscular HGB Conc 29.4 g/dl (31.0-35.0); Mean Corpuscular Hemoglobin 19.5 pg (27.0-33.0); Mean Corpuscular Volume 66.4 fL (80.0-98.0); Monocytes Absolute Auto 0.5 X10*3/uL (0.1-1.2); Monocytes Percent Auto 6.7 % (2-11); Neutrophils Absolute Auto 5.3 x10*3/uL (2.0-8.3); Neutrophils Percent Auto 66.5 % (45-73); PLT CLUMP 1; Red Blood Count 5.74 X10*6/uL (4.20-5.50); Red Cell Distribution Width 21.9 % (11.0-16.0); SCAN SMEAR FLAG 1
[2022-05-03 12:08] LABS: Free T4 (Free Thyroxine) 1.26 ng/dL (0.71-1.85)
[2022-05-03 12:23] LABS: Platelet Count 256 X10*3/uL (160-400); SLIDE REVIEW VERIFIED; White Blood Count 7.9 X10*3/uL (4.8-10.8)
[2022-05-03 12:31] LABS: Iron 69 mcg/dL (30-160); Percent Iron Saturation 21 % (15-50); Total Iron Binding Capacity 325 mcg/dL (228-428); Unsaturated Iron Binding 256 ug/dL
== END 2022-05-03 08:23 | disposition home or self-care (01) ==
LOC: HO.HMGCX 08:22
PROVIDERS: PCP Family Medicine; Visit Provider Family Medicine
DX: D50.9 Iron deficiency anemia, unspecified (principal); E03.9 Hypothyroidism, unspecified; R05.9 Cough, unspecified
CPT/HCPCS: 36415; 71046; 83540; 84439; 85025

== ENCOUNTER 2022-07-03 09:01 | Outpatient (REF) | payer MEDICARE, SELFPAY ==
--- NOTE | ~2022-07-03 | MM_ITS ---
EXAMINATION: MM SCREENING DIGITAL BREAST TOMOSYNTHESIS, BILATERAL CLINICAL INFORMATION: Screening. Asymptomatic. COMPARISON: Mammography: 07/01/2021, 06/16/2020, 06/11/2019 TECHNIQUE: Digital breast tomosynthesis is performed in both the craniocaudal and mediolateral oblique views along with computer-aided detection (CAD). Synthesized 2D images are generated from the tomosynthesis. Additional right MLO view is provided. FINDINGS: There are scattered areas of fibroglandular density (ACR BI-RADS breast composition Category b). Parenchymal pattern is similar to prior studies. Small benign scattered nodularity central outer left breast and upper outer right breast are stable. No developing density or architectural abnormality. There are no significant masses, abnormal calcifications, or other abnormalities. The axilla and skin contours are unremarkable. No significant changes. MM/MM tomosynthesis screening BI IMPRESSION: No mammographic evidence of malignancy. ASSESSMENT: BI-RADS 2: Benign RECOMMENDATION: Routine annual mammography screening. This patient's information was entered into a reminder system with a target due date for their next mammogram.
== END 2022-07-03 09:02 | disposition home or self-care (01) ==
LOC: HO.MAMMO 09:01
PROVIDERS: PCP Family Medicine; Visit Provider Family Medicine
DX: Z12.31 Encounter for screening mammogram for malignant neoplasm of breast (principal)
CPT/HCPCS: 77063; 77067

== ENCOUNTER 2022-08-04 08:12 | Outpatient (REF) | payer MEDICARE, SELFPAY ==
--- NOTE | ~2022-08-04 | XR_ITS ---
EXAMINATION: XR RIBS, LEFT CLINICAL INFORMATION: Pleurodynia. COMPARISON: None TECHNIQUE: 3 views of the left ribs were obtained with a BB placed over the region of pain as indicated by the patient. XR/XR ribs LT min 3V w CXR1V FINDINGS/IMPRESSION: There is a minimally displaced fracture involving the lateral aspect of the left 10th rib. No other rib fractures appreciated. No pneumothorax or pleural fluid is noted. No infiltrate is evident. The heart appears normal in size. The aorta is atherosclerotic. There are degenerative changes of the spine, with thoracolumbar levoscoliosis. A densely calcified node projects to the right of the trachea at the level of the thoracic inlet.
== END 2022-08-04 08:13 | disposition home or self-care (01) ==
LOC: HO.HMGCX 08:12
PROVIDERS: PCP Family Medicine; Visit Provider Physician Assistant
DX: R07.81 Pleurodynia (principal)
CPT/HCPCS: 71101

== ENCOUNTER 2022-09-13 09:45 | Outpatient (REF) | payer MEDICARE, SELFPAY ==
--- NOTE | ~2022-09-13 | US_ITS ---
EXAMINATION: US EXTRACRANIAL CAROTID DUPLEX, BILATERAL CLINICAL INFORMATION: Carotid bruit COMPARISON: 04/03/2016 TECHNIQUE: Real-time ultrasound and Doppler techniques (integrating B-mode 2-D vascular images, Doppler spectral analysis and color-flow Doppler imaging) were utilized to interrogate the extracranial carotid arteries, the vertebral arteries and proximal subclavian arteries bilaterally. The degree of stenosis is determined by criteria similar to NASCET. FINDINGS: Right Side: 1. There is moderate atherosclerotic plaque seen in the bifurcation/proximal ICA region. 2. The common carotid artery PSV proximally is 77 cm/s and distally 68 cm/s. 3. The proximal internal carotid artery velocities are 107 cm/s systolic and 24 cm/s diastolic. 4. The proximal external carotid artery PSV is 566 cm/s consistent with a severe stenosis. 5. The vertebral artery shows antegrade flow. 6. The subclavian artery waveforms are normal. Left Side: 1. There is moderate atherosclerotic plaque seen in the bifurcation/proximal ICA region. 2. The common carotid artery PSV proximally is 79 cm/s and distally 95 cm/s. 3. The proximal internal carotid artery velocities are 264 cm/s systolic and 44 cm/s diastolic. 4. The proximal external carotid artery PSV is 248 cm/s. 5. The vertebral artery shows antegrade flow. 6. The subclavian artery waveforms are normal. US/US carotid duplex BI 1. IMPRESSION: RIGHT: Minimal, non-hemodynamically significant stenosis of the proximal right internal carotid artery corresponding to a velocity criteria. No change from prior. 2. LEFT: Moderate, hemodynamically significant stenosis of the proximal left internal carotid artery corresponding to a 50-79% stenosis by velocity criteria. In the ICA has increased from 104 to 264, change in the category disease from 0-49% to 50-79%. On older exams such as 03/01/2015, velocities are higher than 50-79% category 3. There is a severe right ECA stenosis and moderate left ECA stenosis. 4. There is a change in the category severity of disease when compared to the immediately prior study dated 04/03/2016.
[2022-09-13 12:28] LABS: Anion Gap 14 (12-20); Blood Urea Nitrogen 20 mg/dL (9-16); Carbon Dioxide 30 mmol/L (22-29); Chloride 103 mmol/L (96-108); Estimated Glomerular Filt Rate > 60; Potassium 5.2 mmol/L (3.3-5.1); Sodium 142 mmol/L (135-145)
[2022-09-13 12:45] LABS: Free T4 (Free Thyroxine) 1.22 ng/dL (0.71-1.85)
== END 2022-09-13 09:46 | disposition home or self-care (01) ==
LOC: HO.HMGCX 09:45
PROVIDERS: PCP Family Medicine; Visit Provider Family Medicine
DX: I10 Essential (primary) hypertension (principal); E03.9 Hypothyroidism, unspecified; R09.89 Other specified symptoms and signs involving the circulatory and respiratory systems; I73.9 Peripheral vascular disease, unspecified
CPT/HCPCS: 36415; 80051; 82565; 84439; 84520; 93880

== ENCOUNTER 2023-02-09 08:46 | Outpatient (REF) | payer MEDICARE, SELFPAY ==
[2023-02-09 12:56] LABS: Anion Gap 12 (12-20); Blood Urea Nitrogen 18 mg/dL (9-16); Carbon Dioxide 27 mmol/L (22-29); Chloride 103 mmol/L (96-108); Estimated Glomerular Filt Rate > 60; Free T4 (Free Thyroxine) 1.23 ng/dL (0.71-1.85); Potassium 4.2 mmol/L (3.3-5.1); Sodium 138 mmol/L (135-145)
== END 2023-02-09 08:47 | disposition home or self-care (01) ==
LOC: HO.HMGCLDS 08:46
PROVIDERS: PCP Family Medicine; Visit Provider Family Medicine
DX: I10 Essential (primary) hypertension (principal); E03.9 Hypothyroidism, unspecified
CPT/HCPCS: 36415; 80051; 82565; 84439; 84520

== ENCOUNTER 2023-02-27 09:21 | Outpatient (REF) | payer MEDICARE, SELFPAY ==
--- NOTE | ~2023-02-27 | US_ITS ---
EXAMINATION: NONINVASIVE ASSESSMENT OF THE ARTERIES OF BOTH LOWER EXTREMITIES WITH PVR EXAM AND BILATERAL LOWER EXTREMITY DUPLEX Tiffany Sanchez MD CLINICAL INFORMATION: Peripheral vascular disease TECHNIQUE: Ankle pulse volume recordings, ankle pressure measurements and ankle brachial indices were obtained of the lower extremity arterial system bilaterally in addition to duplex Doppler techniques with wave form analysis and measurement of velocities in the common femoral, profunda femoral, superficial femoral, popliteal and tibial arteries. The study was performed only at rest. COMPARISON: Arteriole ultrasound on 02/09/2022 FINDINGS: a) AT REST: RIGHT LE. The right ankle-brachial index is: 0.92 * >0.97-1.25 = normal - no significant arterial disease * 0.75-0.96 = mild peripheral arterial disease * 0.5-0.74 = moderate peripheral arterial disease * <0.50 = severe peripheral arterial disease 2. Right ankle pressure: normal. 3. Right ankle PVR waveform: Abnormal 4. Right direct duplex Doppler findings: Common femoral artery: 154 cm/s, Multiphasic Profunda femoris artery: 56 cm/s, Multiphasic Superficial femoral artery (proximal): 138 cm/s, Multiphasic Superficial femoral artery (mid): 114 cm/s, Multiphasic Superficial femoral artery (distal): Patent stent Proximal Popliteal artery: 85 cm/s, Multiphasic Mid posterior tibial artery: 46 cm/s, Multiphasic There are several right SFA collaterals. LEFT LE. The left ankle-brachial index is: 1.01 * >0.97-1.25 = normal - no significant arterial disease * 0.75-0.96 = mild peripheral arterial disease * 0.5-0.74 = moderate peripheral arterial disease * <0.50 = severe peripheral arterial disease 2. Left ankle pressure: normal. 3. Left ankle PVR waveform: abnormal. 4. Left direct duplex Doppler findings: Common femoral artery: 148 cm/s, Multiphasic Profunda femoris artery: 81 cm/s, Multiphasic Superficial femoral artery (proximal): 104 cm/s, Multiphasic Superficial femoral artery (mid): 172 cm/s, Multiphasic Superficial femoral artery (distal): 151 cm/s, Multiphasic Proximal Popliteal artery: 85 cm/s, Multiphasic Mid posterior tibial artery: 52 cm/s, Multiphasic US/US JOSE MARTIN complete IMPRESSION: RIGHT LEG: Mild peripheral arterial disease by JOSE MARTIN. Patent distal SFA stent. LEFT LEG: No hemodynamically significant stenoses in the left lower extremity.
--- NOTE | ~2023-02-27 | US_ITS ---
EXAMINATION: NONINVASIVE ASSESSMENT OF THE ARTERIES OF BOTH LOWER EXTREMITIES WITH PVR EXAM AND BILATERAL LOWER EXTREMITY DUPLEX Tiffany Sanchez MD CLINICAL INFORMATION: Peripheral vascular disease TECHNIQUE: Ankle pulse volume recordings, ankle pressure measurements and ankle brachial indices were obtained of the lower extremity arterial system bilaterally in addition to duplex Doppler techniques with wave form analysis and measurement of velocities in the common femoral, profunda femoral, superficial femoral, popliteal and tibial arteries. The study was performed only at rest. COMPARISON: Arteriole ultrasound on 02/09/2022 FINDINGS: a) AT REST: RIGHT LE. The right ankle-brachial index is: 0.92 * >0.97-1.25 = normal - no significant arterial disease * 0.75-0.96 = mild peripheral arterial disease * 0.5-0.74 = moderate peripheral arterial disease * <0.50 = severe peripheral arterial disease 2. Right ankle pressure: normal. 3. Right ankle PVR waveform: Abnormal 4. Right direct duplex Doppler findings: Common femoral artery: 154 cm/s, Multiphasic Profunda femoris artery: 56 cm/s, Multiphasic Superficial femoral artery (proximal): 138 cm/s, Multiphasic Superficial femoral artery (mid): 114 cm/s, Multiphasic Superficial femoral artery (distal): Patent stent Proximal Popliteal artery: 85 cm/s, Multiphasic Mid posterior tibial artery: 46 cm/s, Multiphasic There are several right SFA collaterals. LEFT LE. The left ankle-brachial index is: 1.01 * >0.97-1.25 = normal - no significant arterial disease * 0.75-0.96 = mild peripheral arterial disease * 0.5-0.74 = moderate peripheral arterial disease * <0.50 = severe peripheral arterial disease 2. Left ankle pressure: normal. 3. Left ankle PVR waveform: abnormal. 4. Left direct duplex Doppler findings: Common femoral artery: 148 cm/s, Multiphasic Profunda femoris artery: 81 cm/s, Multiphasic Superficial femoral artery (proximal): 104 cm/s, Multiphasic Superficial femoral artery (mid): 172 cm/s, Multiphasic Superficial femoral artery (distal): 151 cm/s, Multiphasic Proximal Popliteal artery: 85 cm/s, Multiphasic Mid posterior tibial artery: 52 cm/s, Multiphasic US/US arterial duplex LE BI IMPRESSION: RIGHT LEG: Mild peripheral arterial disease by JOSE MARTIN. Patent distal SFA stent. LEFT LEG: No hemodynamically significant stenoses in the left lower extremity.
== END 2023-02-27 09:22 | disposition home or self-care (01) ==
LOC: HO.US 09:21
PROVIDERS: PCP Family Medicine; Visit Provider Surgery Vascular Surgery
DX: I70.213 Atherosclerosis of native arteries of extremities with intermittent claudication, bilateral legs (principal)
CPT/HCPCS: 93923; 93925

== ENCOUNTER → 2023-03-06 09:56 | Outpatient (BNVA) | payer MEDICARE, SELFPAY | PROVIDERS: PCP Family Medicine; Visit Provider Surgery Vascular Surgery ==

== ENCOUNTER 2023-07-24 09:22 | Outpatient (REF) | payer MEDICARE, SELFPAY ==
[2023-07-24 10:20] LABS: MANUAL DIFF FLAG NO
[2023-07-24 10:50] LABS: Basophils Absolute Auto 0.1 X10*3/uL (0.0-0.2); Basophils Percent Auto 0.8 % (0-2); Eosinophils Absolute Auto 0.4 X10*3/uL (0.0-0.4); Hematocrit 38.2 % (37.0-47.0); Hemoglobin 11.4 g/dl (12.0-16.0); Imm Gran Abs Auto 0.04 X10*3/uL (0.00-0.03); Imm Gran Pct Auto 0.5 % (0.0-0.4); Lymphocytes Absolute Auto 1.4 X10*3/uL (1.2-4.9); Lymphocytes Percent Auto 16.7 % (20-40); Mean Corpuscular HGB Conc 29.8 g/dl (31.0-35.0); Mean Corpuscular Hemoglobin 21.2 pg (27.0-33.0); Mean Corpuscular Volume 70.9 fL (80.0-98.0); Mean Platelet Volume 10.9 fL (9.4-12.3); Monocytes Absolute Auto 0.5 X10*3/uL (0.1-1.2); Monocytes Percent Auto 6.3 % (2-11); Neutrophils Percent Auto 70.7 % (45-73); Platelet Count 324 X10*3/uL (160-400); Red Blood Count 5.39 X10*6/uL (4.20-5.50); White Blood Count 8.4 X10*3/uL (4.8-10.8)
[2023-07-24 12:34] LABS: Anion Gap 14 (12-20); Blood Urea Nitrogen 14 mg/dL (9-16); Carbon Dioxide 28 mmol/L (22-29); Chloride 103 mmol/L (96-108); Estimated Glomerular Filt Rate 51; Potassium 4.3 mmol/L (3.3-5.1); Sodium 141 mmol/L (135-145)
[2023-07-26 14:00] LABS: Antibody to SS-A Antigen <1.0 NEG AI (<1.0 NEG); Antibody to SS-B Antigen <1.0 NEG AI (<1.0 NEG)
== END 2023-07-24 09:23 | disposition home or self-care (01) ==
LOC: HO.HMGCLDS 09:22
PROVIDERS: PCP Family Medicine; Visit Provider Family Medicine
DX: I10 Essential (primary) hypertension (principal); E03.9 Hypothyroidism, unspecified; Z83.2 Family history of diseases of the blood and blood-forming organs and certain disorders involving the immune mechanism
CPT/HCPCS: 36415; 80051; 82565; 84520; 85025; 86235

== ENCOUNTER 2023-08-16 08:39 | Outpatient (REF) | payer MEDICARE, SELFPAY | END 2023-08-16 08:40 | disposition home or self-care (01) | LOC: HO.MAMMO 08:39 | PROVIDERS: PCP Family Medicine; Visit Provider Family Medicine | DX: Z12.31 Encounter for screening mammogram for malignant neoplasm of breast (principal) | CPT/HCPCS: 77063; 77067 ==

== ENCOUNTER → 2023-08-16 09:15 | Outpatient (BNV) | payer MEDICARE, SELFPAY | PROVIDERS: PCP Family Medicine; Visit Provider Radiology Diagnostic Radiology | DX: Z12.31 Encounter for screening mammogram for malignant neoplasm of breast (principal) | CPT/HCPCS: 77063; 77067 ==

== ENCOUNTER 2023-09-03 09:04 | Outpatient (AMB) | payer MEDICARE, SELFPAY ==
[2023-09-03 09:31] VITALS: BP 112/72; PULSE 79; TEMP 36.7; O2SAT 99
--- NOTE | 2023-09-03 09:31 | MHC.OFFWIV ---
Intake Vital Signs 09/03/23 09:31 Height 5 ft 5 in BP 112/72 Blood Pressure Location Lt brachial Position Sitting Pulse 79 Pulse Source Pulse Oximeter Temp 98.1 F Temp Source Oral Pulse Oximetry (%) 99 Oxygen Delivery Method Room Air Intake Visit Reasons: EST/sinus pressure([id number]) Intake Note: pt is here for c.o sinus pressure x1 week Patient Tobacco Use Status: Never used Tobacco Allergies No Known Allergies Allergy (Verified 09/03/23 09:31) Do you need a note to return to daycare/school/sports/work: No HPI HPI Comments History of Present Illness Details 88-year-old female presents with fatigue, malaise, myalgia, facial pressure and sinus congestion for over a week. Symptoms do not seem to be improving. Patient has history of sinusitis and this feels similar. No chest pain, shortness of breath, fevers, chills, nausea, vomiting, diarrhea, cough, wheezing, visual disturbances, painful eye movements. Physical exam with pressure to face with forward bending and discomfort with palpation of facial sinuses History and physical exam concerning for sinusitis versus viral illness versus flu versus COVID versus RSV. Unlikely meningitis, encephalitis, intracranial hemorrhage, stroke, posterior stroke, orbital or periorbital cellulitis. No chest pain or shortness of breath unlikely ACS, PE. No signs of acute distress Plan will discharge patient home on Augmentin and prednisone. Educated patient on diagnosis and treatment plan, answered all question, patient verbalizes understanding. At this time patient will be discharged home, advised to return with new or worsening symptoms. Educated on worrisome signs and symptoms and when to return. At this time I feel comfortable discharge home. [facility] Medical History HTN (hypertension) Plantar fasciitis Hypothyroidism GERD (gastroesophageal reflux disease) Hypercholesteremia Thyroid disease Surgical History History of back surgery Social History Patient Tobacco Use Status: Never used Tobacco Review of Systems Const All systems reviewed & are unremarkable except as noted in HPI and below Physical Exam Vital Signs: Last Vital Signs Temp 98.1 F 09/03/23 09:31 Pulse 79 09/03/23 09:31 BP 112/72 09/03/23 09:31 Pulse Ox 99 09/03/23 09:31 Oxygen Delivery Method Room Air 09/03/23 09:31 vss Appearance: Alert.? Oriented X3.? No acute distress.? Head: Normocephalic, atraumatic, no step-offs or deformities. Discomfort to face with forward bending and discomfort with palpation of facial sinuses Eyes: Pupils equal, round and reactive to light.? ENT: Pharynx normal.? Neck: Normal inspection.? Neck supple.? CVS: Normal heart rate and rhythm.? Pulses normal.? Respiratory: No respiratory distress.? Breath sounds normal.? Abdomen: Soft and nontender.? Skin: Skin warm and dry.? Normal skin color.? Normal skin turgor.? Extremities: No lower extremity edema.? No calf ttp. 5/5 strength to bilateral upper and lower extremities Neuro: Oriented X 3.? No motor deficit.? No sensory deficit. CN 2-12 intact Assessment & Plan Assessment & Plan (1) Sinusitis: Code(s): J32.9 - Chronic sinusitis, unspecified Plan Take your medications as prescribed. If you were prescribed antibiotics today, it is important that you take your medication to their entirety, do not skip any doses, do not finish them early. Follow-up with your primary care provider this week. Return to the emergency department with new or worsening symptoms. Such as fevers, chills, chest pain, shortness of breath, nausea, vomiting, dizziness, headache, vision changes, lethargy In case of emergency call 911 Medications: New amoxicillin-pot clavulanate 875-125 mg 1 tab PO BID 20 tabs 0RF 10 days prednisone 40 mg (2 x 20 mg) PO DAILY 10 tabs 0RF 5 days Coding Level of Care Code Est Pt Level 3 (65092) Diagnoses Sinusitis J32.9
== END 2023-09-03 10:32 | disposition home or self-care (01) ==
PROVIDERS: PCP Family Medicine; Visit Provider Physician Assistant
DX: J32.9 Chronic sinusitis, unspecified (principal)
CPT/HCPCS: 99213

== ENCOUNTER 2023-10-19 07:53 | Outpatient (REF) | payer MEDICARE, SELFPAY ==
[2023-10-19 11:19] LABS: MANUAL DIFF FLAG NO
[2023-10-19 11:30] LABS: Basophils Absolute Auto 0.1 X10*3/uL (0.0-0.2); Eosinophils Absolute Auto 0.5 X10*3/uL (0.0-0.4); Eosinophils Percent Auto 5.1 % (0-4); Hematocrit 37.2 % (37.0-47.0); Hemoglobin 11.2 g/dl (12.0-16.0); Imm Gran Abs Auto 0.03 X10*3/uL (0.00-0.03); Imm Gran Pct Auto 0.3 % (0.0-0.4); Lymphocytes Absolute Auto 1.3 X10*3/uL (1.2-4.9); Lymphocytes Percent Auto 13.9 % (20-40); Mean Corpuscular HGB Conc 30.1 g/dl (31.0-35.0); Mean Corpuscular Hemoglobin 20.9 pg (27.0-33.0); Mean Corpuscular Volume 69.4 fL (80.0-98.0); Monocytes Absolute Auto 0.6 X10*3/uL (0.1-1.2); Monocytes Percent Auto 6.8 % (2-11); Neutrophils Absolute Auto 6.8 x10*3/uL (2.0-8.3); Neutrophils Percent Auto 72.9 % (45-73); Platelet Count 354 X10*3/uL (160-400); Red Blood Count 5.36 X10*6/uL (4.20-5.50); Red Cell Distribution Width 16.1 % (11.0-16.0); White Blood Count 9.3 X10*3/uL (4.8-10.8)
[2023-10-19 14:03] LABS: Free T4 (Free Thyroxine) 1.18 ng/dL (0.71-1.85); Thyroid Stimulating Hormone 3.44 uIU/mL (0.32-4.0)
== END 2023-10-19 07:54 | disposition home or self-care (01) ==
LOC: HO.HMGCLDS 07:53
PROVIDERS: PCP Family Medicine; Visit Provider Family Medicine
DX: E03.9 Hypothyroidism, unspecified (principal); R53.83 Other fatigue
CPT/HCPCS: 36415; 84439; 84443; 85025

== ENCOUNTER 2024-02-18 09:44 | Outpatient (REF) | payer MEDICARE, SELFPAY ==
--- NOTE | ~2024-02-18 | US_ITS ---
EXAMINATION: Noninvasive assessment of the bilateral lower extremities with ARTERIAL DUPLEX and ANKLE BRACHIAL INDICES (ABIs). CLINICAL INFORMATION: Peripheral vascular disease. History of right SFA stent TECHNIQUE: Duplex Doppler techniques with waveform analysis and measurement of velocities in the bilateral common femoral, profunda femoris, superficial femoral, popliteal and tibial arteries were performed. Additionally, ankle pulse volume recordings, ankle pressure measurements and ankle brachial indices were obtained of the lower extremity arterial system bilaterally. The study was performed only at rest. COMPARISON: 02/27/2023 FINDINGS: DIRECT DUPLEX DOPPLER FINDINGS: RIGHT LEG: Common femoral artery: 114 cm/s, phasicity: Biphasic Profunda femoris artery: 129 cm/s, phasicity: Biphasic Superficial femoral artery (proximal): 107 cm/s, phasicity: Biphasic Superficial femoral artery (mid): 139 cm/s, phasicity: Biphasic Superficial femoral artery (distal): Short segment stent with maximum velocity of 155 cm/s cm/s, phasicity: Biphasic Popliteal artery: 97.6 cm/s, phasicity: Biphasic Posterior tibial artery: 63.9 cm/s, phasicity: Monophasic Peroneal artery: 52.7 cm/s, phasicity: Monophasic Anterior tibial artery: 61.3 cm/s, phasicity: Monophasic Dorsalis pedis artery: 48.7 cm/s, phasicity:Monophasic LEFT LEG: Common femoral artery: 123 cm/s, phasicity: Biphasic Profunda femoris artery: 146 cm/s, phasicity: Biphasic Superficial femoral artery (proximal): 92.8 cm/s, phasicity: Biphasic Superficial femoral artery (mid): 108 cm/s, phasicity: Biphasic Superficial femoral artery (distal): 140 cm/s, phasicity: Biphasic Popliteal artery: 99.3 cm/s, phasicity: Biphasic Posterior tibial artery: 99.5 cm/s, phasicity: Biphasic Peroneal artery: 48.5 cm/s, phasicity: Biphasic Anterior tibial artery: 56.1 cm/s, phasicity: Biphasic Dorsalis pedis artery: 46.9 cm/s, phasicity: Monophasic ANKLE-BRACHIAL INDEX: Right: 0.88, previously 0.92? Left: 0.95, previously 1.01 ANKLE PRESSURES: Right: PT 134, DP 129 Left: PT?144, DP?119 ANKLE PVR WAVEFORMS: Right: Minimally dampened Left: Minimally dampened US/US arterial duplex BI w/ JOSE MARTIN IMPRESSION: Right leg: Minimally decreased ankle-brachial index, not significantly changed. Patent arterial flow throughout the right lower extremity with normal velocities in the distal superficial femoral artery stent. Left leg: Normal ankle brachial index is not significantly changed. Patent arterial flow throughout the left lower extremity without significant stenosis JOSE MARTIN Reference: - >1.4 = calcified vessels - 0.9 - 1.4 = normal - no significant arterial disease - 0.7 - 0.89 = mild peripheral arterial disease - 0.51 - 0.69 = moderate peripheral arterial disease - ? 0.50 = severe peripheral arterial disease - < .30 = critical arterial disease
--- NOTE | ~2024-02-18 | US_ITS ---
EXAMINATION: US EXTRACRANIAL CAROTID DUPLEX, BILATERAL CLINICAL INFORMATION: Carotid stenosis COMPARISON: Ultrasound from 09/13/2022 TECHNIQUE: Real-time ultrasound and Doppler techniques (integrating B-mode 2-D vascular images, Doppler spectral analysis and color-flow Doppler imaging) were utilized to interrogate the extracranial carotid arteries, the vertebral arteries and proximal subclavian arteries bilaterally. The degree of stenosis is determined by criteria similar to NASCET. FINDINGS: Right Side: 1. There is moderate atherosclerotic plaque seen in the bifurcation/proximal ICA region. 2. The common carotid artery PSV proximally is 67.0 cm/s and distally 65.3 cm/s. 3. The proximal internal carotid artery velocities are 84.4 cm/s systolic and 16.9 cm/s diastolic. 4. The proximal external carotid artery PSV is 447 cm/s. 5. The vertebral artery shows antegrade flow. 6. The subclavian artery waveforms are normal. Left Side: 1. There is moderate atherosclerotic plaque seen in the bifurcation/proximal ICA region. 2. The common carotid artery PSV proximally is 62.4 cm/s and distally 60.4 cm/s. 3. The proximal internal carotid artery velocities are 196 cm/s systolic and 46 cm/s diastolic. 4. The proximal external carotid artery PSV is 128 cm/s. 5. The vertebral artery shows antegrade flow. 6. The subclavian artery waveforms are normal. US/US carotid duplex BI IMPRESSION: 1. RIGHT: Minimal, non-hemodynamically significant stenosis of the proximal right internal carotid artery corresponding to a 0-49% stenosis by velocity criteria. Moderate plaque is seen at the carotid bulb extending more into the external carotid artery with a stable elevated velocities consistent with severe stenosis 2. LEFT: Moderate, hemodynamically significant stenosis of the proximal left internal carotid artery corresponding to a 50-79% stenosis by velocity criteria. 3. There is no change in the category severity of disease when compared to the previous study dated 09/13/2022.
== END 2024-02-18 09:45 | disposition home or self-care (01) ==
LOC: HO.US 09:44
PROVIDERS: PCP Family Medicine; Visit Provider Surgery Vascular Surgery
DX: I65.23 Occlusion and stenosis of bilateral carotid arteries (principal); I73.9 Peripheral vascular disease, unspecified
CPT/HCPCS: 93880; 93922; 93925

== ENCOUNTER 2024-03-04 07:45 | Outpatient (REF) | payer MEDICARE, SELFPAY ==
[2024-03-04 10:12] LABS: MANUAL DIFF FLAG NO
[2024-03-04 10:27] LABS: Basophils Absolute Auto 0.1 X10*3/uL (0.0-0.2); Eosinophils Absolute Auto 0.4 X10*3/uL (0.0-0.4); Eosinophils Percent Auto 5.5 % (0-4); Hematocrit 37.4 % (37.0-47.0); Hemoglobin 11.5 g/dl (12.0-16.0); Imm Gran Abs Auto 0.02 X10*3/uL (0.00-0.03); Imm Gran Pct Auto 0.3 % (0.0-0.4); Lymphocytes Absolute Auto 1.8 X10*3/uL (1.2-4.9); Lymphocytes Percent Auto 23.2 % (20-40); Mean Corpuscular HGB Conc 30.7 g/dl (31.0-35.0); Mean Corpuscular Hemoglobin 21.2 pg (27.0-33.0); Mean Platelet Volume 10.8 fL (9.4-12.3); Monocytes Absolute Auto 0.5 X10*3/uL (0.1-1.2); Monocytes Percent Auto 6.8 % (2-11); Neutrophils Percent Auto 63.2 % (45-73); Platelet Count 314 X10*3/uL (160-400); Red Blood Count 5.42 X10*6/uL (4.20-5.50); Red Cell Distribution Width 17.7 % (11.0-16.0); White Blood Count 7.9 X10*3/uL (4.8-10.8)
[2024-03-04 10:40] LABS: Anion Gap 12 (12-20); Blood Urea Nitrogen 16 mg/dL (9-16); Carbon Dioxide 30 mmol/L (22-29); Chloride 103 mmol/L (96-108); Estimated Glomerular Filt Rate 60; Magnesium 2.3 mg/dL (1.6-2.6); Potassium 4.7 mmol/L (3.3-5.1); Sodium 140 mmol/L (135-145)
[2024-03-04 11:02] LABS: Free T4 (Free Thyroxine) 1.05 ng/dL (0.71-1.85)
== END 2024-03-04 07:46 | disposition home or self-care (01) ==
LOC: HO.HMGCLDS 07:45
PROVIDERS: PCP Family Medicine; Visit Provider Family Medicine
DX: I10 Essential (primary) hypertension (principal); E03.9 Hypothyroidism, unspecified; R27.0 Ataxia, unspecified
CPT/HCPCS: 36415; 80051; 82565; 83735; 84439; 84520; 85025

== ENCOUNTER 2024-11-20 09:49 | Outpatient (AMB) | payer OTHER, MEDICARE, SELFPAY ==
--- NOTE | 2024-11-20 09:53 | A.OFFVIS_ITS ---
Intake Visit Reasons: overdue follow up s/p Carotid/Arterial US 02/17/25 Intake Note: Patient presents for follow up carotid and arterial US. No complaints. Accompanied by: Daughter Allergies No Known Allergies Allergy (Verified 11/20/24 09:54) [facility] HPI overdue follow up s/p Carotid/Arterial US 02/17/25: Details: The patient is an 89-year-old female presenting with concerns related to vascular health monitoring. We are revisiting testing that was done approximately a year ago to assess the current state of her peripheral arterial disease and carotid stenosis. She reports no changes in intervention since her last visit. Her peripheral arterial testing from February 2024 along with with carotid testing. 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 The patient denies any recent cerebrovascular events, supporting her carotid risk profile's current stability. Her regimen consists of a baby aspirin daily. She remains active and has visited her daughter down in [place] and help take care of her for nearly 6 months. She is planning to go back later this year as well. [facility] Medical History HTN (hypertension) Plantar fasciitis Hypothyroidism GERD (gastroesophageal reflux disease) Hypercholesteremia Thyroid disease Surgical History History of back surgery Social History Patient Tobacco Use Status: Never used Tobacco Review of Systems Const All systems reviewed & are unremarkable except as noted in HPI and below Reports no additional complaints ENT Reports Normal hearing present Card Denies chest pain, Denies chest pain at rest, Denies chest pain with activity and Denies pedal edema Resp Denies cough GI Denies abdominal pain Musc Denies abnormal gait, Denies muscle cramps and Denies radiating pain into limb Skin/Breast Denies skin ulcer and Denies wounds Neuro Reports Normal hearing present and Denies abnormal gait Psych Reports no additional complaints Physical Exam Const General: cooperative, healthy appearing and comfortable Orientation/consciousness: oriented to person, oriented to place and oriented to time HEENT Head: Yes normal to inspection Neck Neck: Yes normal visual inspection Carotids: no bruits Chest Chest palpation & inspection: normal inspection of the chest Resp Effort & Inspection: normal respiratory effort and able to speak in complete sentences Auscultation: clear to auscultation bilaterally, no crackles, no rales, no rhonchi and no wheezes Cardio Rate: regular rate Rhythm: regular rhythm Heart sounds: S1 normal heart sound present and S2 normal heart sound present Bruits: no carotid bruits Peripheral pulses: Peripheral pulses 2+ throughout GI Inspection: Yes normal to inspection Skin Wounds: no wounds Hair: normal Neuro General: oriented to person, oriented to place and oriented to time Cranial nerves: Yes CN's II-XII intact bilaterally and Yes Normal hearing pre sent Cognition (Neuro): normal cognition Motor exam (neuro): 5/5 motor strength present throughout Extrem Other: venous exam: No significant superficial varicosities or spider telangiectasias, minimal edema General: No clubbing, No cyanosis and No edema Psych Appearance: grossly normal Mental Status: mental status grossly normal Speech and movement: Normal speech and movement present Results Reviewed Results Reviewed: Noninvasive arterial testing dated 02/18/2024 demonstrates JOSE MARTIN on the right of 0.88 and on the left of 0.95 Carotid testing from 02/18/2024 demonstrates right-sided 0-49 left side 50-79 with a peak systolic of only 196. Written report and images were reviewed. Assessment & Plan Assessment & Plan (1) PAD (peripheral artery disease): Comment: 04/20/2021 - right posterior tibial plasty, right SFA stent, left common iliac stent Code(s): I73.9 - Peripheral vascular disease, unspecified Category: Medical Plan: In short patient has stable claudication. I did review the pathophysiology of peripheral vascular disease with the patient. In addition we did discuss routine conservative measures including a healthy diet and the importance of exercise and ambulation. We did discuss risk factor modification. The patient will continue to to follow-up with surveillance follow-up in approximately three months. Thank you for allowing us to participate in this patient's care. If there are any questions or concerns please do not hesitate to contact us. (2) Carotid stenosis: Code(s): I65.29 - Occlusion and stenosis of unspecified carotid artery Category: Medical Qualifiers: Laterality: bilateral Qualified Code(s): I65.23 - Occlusion and stenosis of bilateral carotid arteries Plan: In short patient has asymptomatic carotid disease. We have reviewed signs and symptoms of a stroke. We also discussed risk factor modification inclusive a healthy diet low in cholesterol. The patient will follow up with us with surveillance ultrasound of the carotids three-month. Should there be any changes or signs or symptoms of a stroke we will be happy to see them back sooner. Thank you for allowing us to participate in this patient's care. If there are any questions or concerns please do not hesitate to contact us. Orders: Orders US carotid duplex BI 3 Months I65.23 - Occlusion and stenosis of bilateral carotid arteries US arterial duplex LE BI 3 Months I73.9 - Peripheral vascular disease, unspecified Patient Instructions: - Continue taking baby aspirin daily. - Follow up for new vascular testing in about three months. - Report any sudden neurological changes or symptoms immediately. Coding Level of Care Code Est Pt Level 4 (46237) Complex EM visit Add On G2211 Diagnoses PAD (peripheral artery disease) I73.9 Bilateral carotid artery stenosis I65.23 Laterality: bilateral
--- OUTSIDE RECORDS SUMMARY | 2024-11-20 10:21 | XMS_ITS | Data Portability ---
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 Plan of Treatment Reminders Order Date Submit Date Provider Last Modified By Organization Details Last Modified Time Details Appointments None recorded. Lab None recorded. Referral None recorded. Procedures None recorded. Surgeries None recorded. Imaging None recorded. Medication Orders cephalexin 500 mg capsule 2022 [id number], [address], [place], [phone], 12:12:57 mupirocin 2 % topical ointment 2022 [facility] #[id number], [address], [place], [phone], 12:12:56 Patient TargetsNo targets recorded. Patient InstructionsNo instructions recorded. Reason for Referral None Reported. Problems Name Problem SNOMED Code Status Onset Date Resolution Date Notes Provider Name and Address Organization Details Recorded Time Hyperthyroidis m 27466429 Active 2022 Domi [place]ena, [place] - [facility] 3 11:59:13 Essential hypertension 20841826 Active 2022 Dom[place], [place] - [facility] 3 11:59:23 Gastroesophage al reflux disease 929123015 Active 2022 Domi [place]ena, [place] - [facility] 3 11:59:29 Neuropathy 271556853 Active 2022 [facility] Problem Notes None recorded. Medical Equipment None Reported. Allergies No known drug allergies Medications Name Sig Start Date Stop Date Status Note LastModified by Organization Details LastModified Time azithromycin 250 mg tablet active Not Available Not Available Not Available benzonatate 200 mg capsule TAKE 1 CAPSULE BY MOUTH THREE TIMES DAILY FOR 10 DAYS NEEDED FOR COUGH active Not Available Not Available No t Available famotidine 40 mg tablet TAKE 1 TABLET BY MOUTH EVERY DAY DIRECTED active Not Available Not Available No t Available cephalexin 500 mg capsule TAKE 1 CAPSULE BY MOUTH EVERY 6 HOURS FOR 7 DAYS active Not Available Not Available No t Available mupirocin 2 % topical ointment APPLY EXTERNALLY TO THE AFFECTED AREA THREE TIMES DAILY active Not Available Not Available Not Available methylpredni solone 4 mg tablets in a dose pack FOLLOW PACKAGE DIRECTIONS active Not Available Not Available N ot Available aspirin active Not Available Not Avail able Not Available omeprazole active Not Available Not Av ailable Not Available amlodipine active Not Available Not Av ailable Not Available Synthroid active Not Available Not Astrid ilable Not Available metoprolol succinate active Not Available Not Available No t Available gabapentin active Not Available Not Av ailable Not Available Vitals Date Recorded Body weight Body mass index (BMI) Body height Heart rate Body temperature Oxygen saturation Oxygen saturation in Arterial blood by Pulse oximetry Systolic blood pressure Diastolic blood pressure Provider Name and Address Organization Details Last Updated DateTime 3 76763.7 8 g 26.6 kg/m2 165.1 cm 73 /min 98.1 [degF] 93 % 93 % 120 mm[Hg] 70 mm[Hg] Domi Holden [facility] 3 11:57:03 Social History Question Answer Notes LastModified by Organizat ion Details LastModified Time Tobacco Smoking Status Former Smoker Jelena Rogel NP [address] [place], [address], [facility] 06/19/2023 12:03:28 Do You Have An Advance Directive? No Information n ot available 06/19/2023 What Is Your Level Of Alcohol Consumption? None [email or web address] Information not available 06/19/2023 Are You Currently Sexually Active With Anyone Who Has Traveled (within The Last 12 Weeks) To A Zika-affected Area? No [email or web address] Information not available 06/19/2023 Are You Blind Or Do You Have Difficulty Seeing? No Information n ot available 06/19/2023 How Much Tobacco Do You Chew? None Information not available 06/19/2023 In The 14 Days Before Symptom Onset, Have You Had Close Contact With A Laboratory-confirm ed COVID-19 While That Case Was Ill? No Information n ot available 06/19/2023 In The 14 Days Before Symptom Onset, Have You Had Close Contact With A Person Who Is Under Investigation For COVID-19 While That Person Was Ill? No [email or web address] Information not available 06/19/2023 Have You Been To An Area Known To Be High Risk For COVID-19? No [email or web address] Information not available 06/19/2023 Have You Processed Blood Or Body Fluids From An Ebola Virus Disease Patient Without Appropriate PPE? No [email or web address] Information not available 06/19/2023 Do You Reside In Or Have You Traveled To An Area Where Ebola Virus Transmission Is Active? No Information not available 06/19/2023 How Many Times Per Week Do You Exercise? Less Than 1 Time Per Week [email or web address] Information not available 06/19/2023 Have You Recently Or Are You Planning To Travel To An Area With Zika Virus? No Information not available 06/19/2023 Do You Have Smoke And Carbon Monoxide Detectors In Your Home? Yes Information not available 06/19/2023 Do You Or Have You Ever Used Smokeless Tobacco? Never Used Smokeless Tobacco [email or web address] Information not available 06/19/2023 How Much Tobacco Do You Smoke? No [email or web address] Information not available 06/19/2023 Do You Feel Stressed (tense, Restless, Nervous, Or Anxious, Or Unable To Sleep At Night)? [id number] [email or web address] Information not available 06/19/2023 Do You Use Any Illicit Or Recreational Drugs? No [email or web address] Information not available 06/19/2023 Have You Recently Traveled Abroad? No Information not available 06/19/2023 Sex: Female Functional Status Question Answer Note LastModified by Organization D etails LastModified Time What is your exercise level? Moderate [email or web address] Information not available 06/19/2023 Mental Status None recorded. Family History Nothing Reported. Medical History Condition Response Bronchitis Y Arthritis Y Thyroid Problems Y Osteoporosis Y Gynecological HistoryNo gynecological history recorded. Obstetrics History GPAL:G 0 P 0 0 0 0 Past Encounters Encounter ID Performer Location Encounter Start Date Encounter Closed Date Diagnosis/Indication Diagnosis SNOMED-CT Code Diagnosis ICD10 Code Diagnosis Note [id number] Jelena Rogel NP [facility] [address] [place] [address] 06/19/2023 11:27:57 06/19/2023 12:11:05 Paronychia of toe of left foot 0524512684 2831724 L03.032 warm soaks, bactroban ointment and keflex Acute uppe r respiratory infection 02161324 J06.9 cont. mucinex as needed Health Concerns Section Related Observation LastModified by Organization Detai ls LastModified Time None Recorded Concern Status LastModified by Organization Details LastModified Time None Recorded Advance Directives Directive N: Payers Encounter Date Sequence Insurance Name Policy Number Policy Cross Covered Member ID Cross Member ID Guarantor Name 06/19/2023 1 MEDICARE B-MA: [facility] Jaja Garcia [id number] Jaja Garcia 06/19/2023 2 [employer] [place] (MEDICAID HMO) Jaja Garcia [id number] Jaja Garcia Notes Date Note Type Note Provider Name and Address Organization Details Recorded Time 06/19/2023 text/html Pt walks in to y with c/o cough for the last 3 wks that is productive of clear sputum. She says at night she wheezes some and feels like she rattles. No fever/chills. Had hangnail on her left great toe and pulled it off last night. Toe now swollen and erythemic. Pt here visiting from [place] for 2 months. Jelena Rogel NP [address] [place], [address], [facility] 06/19/2023 12:18:12 OBGyn Episode No OBEpisode recorded.
--- OUTSIDE RECORDS SUMMARY | 2024-11-20 10:21 | XMS_ITS | CLINICAL SUMMARY ---
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 Name Role Phone Amy Adelina HYDRO STATION OPERATOR Unavailable Rivka Bustillo Unavailable SOCIAL HISTORY Social History Observation Description Dates Observed Current Smoking Status Never smoked tobacco 2021 89 Sex Female [id number] VITAL SIGNS BMI Body Mass Index Percentile Date Systolic Diastolic Head Circumference Head Circumference Percentile Height Oxygen Concentration Pulse Pulse Oximeter Respiratory Rate Temperature Weight Oypsss-dmq-onnghd Percentile 27.9 56 kg/m 2 Unknown 222 125 mmHg 71 mmHg Unknown Unknown 65 [in_i] Unknown 57 /min 98 % 16 /min 98.3 168 [lb_av] Unknown ALLERGIES AND ADVERSE REACTIONS No known allergies MEDICATIONS Medication Directions Start Date Form Frequency Route Duration Duration Units Status Strength Strength Units of Measure amlodipine Take (oral) table t No frequency recorded oral No set duration recorded No set duration amount recorded active 2.5 mg gabapentin Take (oral) 11 capsu le No frequency recorded oral No set duration recorded No set duration amount recorded active 100 mg clindamycin HCl Take (oral) 20200820 capsu le No frequency recorded oral No set duration recorded No set duration amount recorded active 300 mg amitriptyli ne Take (oral) 20200821 table t No frequency recorded oral No set duration recorded No set duration amount recorded active 50 mg PROBLEM LIST Names Dates Status Contusion of unspecified front wall of thorax, i nitial encounter 20211011 active Contusion of left front wall of thorax, initial encounter 20211014 active FAMILY HISTORY ENCOUNTERS Encounter Performer Location E/M Code E/M Label Date Diagnosi s visit Adelina Reyes [facility] [place] [address] Office or other outpatient visit (detailed) 20211011 Contusion of unspecified front wall of thorax, initial encounter visit Adelina Reyes [facility] [address] Office or other outpatient visit (detailed) 20211011 Contusion of left front wall of thorax, initial encounter LAB RESULTS Overall Code Overall Text [Code] Result Type (Code) Result Text Result Value Relevant Reference Range Date Lab Name Street City State Zip Code No overall lab code recorded 86842 - Ribs [33866] No result type code recorded 71958 - Ribs [02501] No range recorded No lab name record ed No street recorde d No city recor ded No state record ed No zip code recor ded No overall lab code recorded No overall lab test recorded 15344 Ribs [33801] No range recorded None record ed None recorde d None recor ded None record ed None recor ded 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 PROVIDERS (PAYERS) Payer name Policy type / Coverage type Policy ID Covered republican ID Insurance type Policy Cross [facility] Unknown [id number] None Recorded Primar y RICARDO LEUTSCH PROCEDURE NOTE Date Name Status Summary Text (N otes) 20211011 *Radiology Orders Completed 72186 - Ri bs [87237] None recorded None recorded None recorded None recorde d 20211011 *Radiology Orders Completed 50642 - Ri bs [45406] PROCEDURES Date Name Status Summary Text (N otes) 20211011 *Radiology Orders Completed 51547 - Ri bs [81246] None recorded None recorded None recorded None recorde d 20211011 *Radiology Orders Completed 54407 - Ri bs [68873] ASSESSMENTS No information recorded LABORATORY REPORT NARRATIVE NOTE No information recorded PATHOLOGY REPORT NARRATIVE NOTE No information recorded IMAGING NARRATIVE Result Code Result Text Date Status Urgency Interp retation 58487 Ribs [18479] 20211011 F Unknown Ribs wi th PA chest:There is no evidence for displaced rib fracture. The examination is underpenetrated. Lower left ribs are not visualized. Otherwise, the ribs are partially visualized.There is no focal lytic or sclerotic lesion identified. No evidence for pleural effusion or pneumothorax. A left basilar pleural thickening is present laterally.Heart size and mediastinal contours are within normal limits. The thoracic aorta is tortuous and calcified.The pulmonary parenchyma is clear. No subcutaneous emphysema in the chest wall soft tissues was noted.IMPRESSION:Within normal limits. No rib fractures are seen. Limited study. No pneumothorax. HARGE SUMMARY NOTE * Allergies: No known allergies * Medication Current: Medication Directions Start Date Form Frequency Route Duration Duration Units Status Strength Strength Units of Measure amlodipine Take (oral) table t No frequency recorded oral No set duration recorded No set duration amount recorded active 2.5 mg gabapentin Take (oral) 11 capsu le No frequency recorded oral No set duration recorded No set duration amount recorded active 100 mg clindamycin HCl Take (oral) 20200820 06 capsu le No frequency recorded oral No set duration recorded No set duration amount recorded active 300 mg amitriptyli ne Take (oral) 20200821 07 table t No frequency recorded oral No set duration recorded No set duration amount recorded active 50 mg * Plan of Care (advice, pending tests, pending diagnostic tests): Treatment Type Code Text Date Observatio n Data Instruction [id number] Patient Education 2021-10-[address] enty of rest. Instruction [id number] Patient Education 2021-10-11 Tyleno l every 4-6 hours as needed and/or Ibuprofen every 6-8 hours as needed, over the counter for pain or fever. Instruction [id number] Patient Education 2021-10-11 If you r condition worsens we recommend that you receive another evaluation at the emergency room immediately or contact your primary medical clinic to discuss your concerns. You must understand that you've received an Urgent Care treatment only and that you may be released before all of your medical problems are known or treated. You, the patient, will arrange for follow up care as instructed. Instruction [id number] Patient Education 2021-10-11 Please use a pillow for splinting and perform daily deep breathing and forceful exhaling to prevent pneumonia * Visit Diagnosis: Contusion of unspecified front wall of thorax, initial encounter (S20.219A) Contusion of left front wall of thorax, initial encounter (S20.212A) * Referrals: First Name Last Name NPI# Reason None recorded None recorded None recorded None recorde d HISTORY AND PHYSICAL NOTE * Reason for Visit: Patient Reports: rib injury [Onset: 2 Day(s); Frequency: Constant; Free text: pt fell getting out of the tub, pt landed on the edge of the tub on left anterior side.]. * Family History: * Smoking Status: Never smoked tobacco 20211011 * Allergies: No known allergies * Problems: Names Dates Status Contusion of unspecified front wall of thorax, i nitial encounter 20211011 active Contusion of left front wall of thorax, initial encounter 20211014 active * Vitals: BMI Body Mass Index Percentile Date Systolic Diastolic Head Circumference Head Circumference Percentile Height Oxygen Concentration Pulse Pulse Oximeter Respiratory Rate Temperature Weight Cghsrg-uat-nnkopi Percentile 27.9 56 kg/m 2 Unknown 222 125 mmHg 71 mmHg Unknown Unknown 65 [in_i] Unknown 57 /min 98 % 16 /min 98.3 168 [lb_av] Unknown * Review of Systems: * *Systemic* Patient Denies* Fever * Headache * Allergy/Immun* Patient Denies* Allergy symptoms * Eyes* Patient Denies* Eye redness * Vision changes * GI* Patient Denies* Diarrhea * Nausea * * Patient Denies* Dysuria * Adam/Lymph* Patient Denies* Swollen lymph nodes * Musc/Skel* Patient Denies* Back pain * Swelling * Psych* Patient Denies* Anxiety * Respiratory* Patient Denies* Cough * Shortness of breath?? * Skin/Breast* Patient Denies* Rash * Exam: * General : Normal* Normal : Patient is oriented to time, place and person,Well developed,No acute distress,No acute distress,Appears to be well nourished,Affect is normal,Normal hygiene,Mood is normal,Patient appears no n-toxic * Skin, Hair, Nails : Normal* Normal : No rashes noted,No Abrasions observed * Nose : Normal* Normal : Nasal discharge absent,Normal appearing nose * Oral pharynx : Normal* Normal : no erythema noted. no tonsillar exudate. Airway is patent. * Chest/Lungs : Normal* Normal : No signs of respiratory distress,Chest is clear to auscultation bilaterally upon exam,Normal and symmetrical appearing chest on exam * Cardiac : Normal* Normal : Heart normal to auscultation,Normal heart rate noted,Normal rhythm noted * Musculoskeletal : Normal* Normal : Normal back examination,Normal rib examination,Normal Gait,Normal Posture,Negative Straight Leg Raising,No chest wall tenderness to palpation * Psych : Normal* Normal : Patient is oriented to time, place and person,Mood appears to be Normal,Affect Normal * Plan of Care (advice, pending tests, pending diagnostic tests): Treatment Type Code Text Date Observatio n Data Instruction [id number] Patient Education 2021-10-[address] of rest. Instruction [id number] Patient Education 2021-10-11 Tyleno l every 4-6 hours as needed and/or Ibuprofen every 6-8 hours as needed, over the counter for pain or fever. Instruction [id number] Patient Education 2021-10-11 If you r condition worsens we recommend that you receive another evaluation at the emergency room immediately or contact your primary medical clinic to discuss your concerns. You must understand that you've received an Urgent Care treatment only and that you may be released before all of your medical problems are known or treated. You, the patient, will arrange for follow up care as instructed. Instruction [id number] Patient Education 2021-10-11 Please use a pillow for splinting and perform daily deep breathing and forceful exhaling to prevent pneumonia * Lab Results: Overall Code Overall Text [Code] Result Type (Code) Result Text Result Value Relevant Reference Range Date Lab Name Street [facility] State Zip Code No overall lab code recorded 77508 - Ribs [21679] No result type code recorded 67431 - Ribs [48322] No range recorded No lab name record ed No street recorded No city recor ded No state record ed No zip code recor ded * Radiology Results: Overall Code Overall Text [Code] Result Type (Code) Result Text Result Value Relevant Reference Range Date Lab Name [facility] Zip Code No overall lab code recorded No overall lab test recorded [address]3893 Ribs [67092] No range recorded None record ed None recorded None recor ded None record ed None recor ded * Visit Diagnosis: Contusion of unspecified front wall of thorax, initial encounter (S20.219A) Contusion of left front wall of thorax, initial encounter (S20.212A) * Referrals: First Name Last Name NPI# Reason None recorded None recorded None recorded None recorde d PLAN OF TREATMENT Treatment Type Code Text Date Instructio n Data Instruction [id number] Patient Education 2021-10-11 Please use a pillow for splinting and perform daily deep breathing and forceful exhaling to prevent pneumonia Instruction [id number] Patient Education 2021-10-[address] of rest. Instruction [id number] Patient Education 2021-10-11 Tyleno l every 4-6 hours as needed and/or Ibuprofen every 6-8 hours as needed, over the counter for pain or fever. Instruction [id number] Patient Education 2021-10-11 If you r condition worsens we recommend that you receive another evaluation at the emergency room immediately or contact your primary medical clinic to discuss your concerns. You must understand that you've received an Urgent Care treatment only and that you may be released before all of your medical problems are known or treated. You, the patient, will arrange for follow up care as instructed. Instruction [id number] Patient Education 2021-10-11 Please use a pillow for splinting and perform daily deep breathing and forceful exhaling to prevent pneumonia CHIEF COMPLAINT AND REASON FOR VISIT NARRATIVE Patient Reports: rib injury [Onset: 2 Day(s); Frequency: Constant; Free text: pt fell getting out of the tub, pt landed on the edge of the tub on left anterior side.].
--- OUTSIDE RECORDS SUMMARY | 2024-11-20 10:21 | XMS_ITS | Data Portability ---
Author Organization [facility] Yomaira MOSS_Ayaz_ Address [address] [place] [address] Care Team Providers Care Mustanger Name Role Phone ARELIS JACKSON Primary Care Provider [phone] Assessment No assessment recorded. Plan of Treatment Reminders Order Date Submit Date Provider Last Modified By Organization Details Last Modified Time Details Appointments None recorded. Lab rapid SARS CoV 2 Ag, QL IA, respiratory specimen 2022 023 [email or web address] 2 In-Office Order, Internal Use Only DO Not Attach Compendium DO Not Attach Compendium, Do Not Delete/merge, [id number] 10:30:56 rapid flu (A+B) 2022 [facility]23 [email or web address] Order, Internal Use Only DO Not Attach Compendium DO Not Attach Compendium, Do Not Delete/merge, [id number] 10:30:56 Referral None recorded. Procedures None recorded. Surgeries None recorded. Imaging None recorded. Medication Orders Zithromax Z-Salbador 250 mg tablet 2022 023 [facility] [id number], [address] [place], [address], 3 10:31:02 dexamethaso ne 4 mg tablet 2022 023 [facility] [id number], [address] [place], [address], 3 10:31:02 ProAir HFA 90 mcg/actuati on aerosol inhaler 2022 023 OSCAR Das [facility] [id number], [address] [place], [address], 10:31:06 Patient TargetsNo targets recorded. Patient Instructions Encounter Date Encounter Id Patient Instructions Last Modified By Organization Details Last Modified Time 10/16/2022 [id number] learning about fever Not available 10/16/2022 11:04:40 Increase fluid intake and rest; OTC motrin/tylenol for fever/pain as directed; OTC cough medication as directed; F/U with PCP upon return home or proceed to ED for difficulty breathing. Not available 10/16/2022 11:05:06 All pt. question s and concerns were addressed and answered. Pt. verbalized understanding and agreement of treatment plan. This was an Urgent Care Visit. Quality measures managed by PCP. [email or web address] Not available 10/16/2022 11:05:09 Reason for Referral None Reported. Results Created Date Observation Date Name Description Value Unit Range Abnormal Flag Note LastModifiedBy Organization Detail LastModifiedTime 10/16/1910/16/2022 rapid flu (A+B) Flu A negati ve Not Available In-Office Order Internal Use Only DO Not Attach Compendium DO Not Attach Compendium, Do Not Delete/merge, [id number] 10/16/2022 09:44:17 10/16/1910/16/2022 rapid flu (A+B) Flu B negati ve Not Available In-Office Order Internal Use Only DO Not Attach Compendium DO Not Attach Compendium, Do Not Delete/merge, [id number] 10/16/2022 09:44:17 10/16/1910/16/2022 rapid SARS CoV 2 Ag, QL IA, respi rator y speci men RAPID Nasal Covid negati ve Not Available In-Office Order Internal Use Only DO Not Attach Compendium DO Not Attach Compendium, Do Not Delete/merge, [id number] 10/16/2022 09:44:12 10/16/1910/16/2022 XR, chest No observ ation record ed. [email or web address] Not Available 08/2022 10:41:18 Result Notes None recorded. Problems No Known Problems Procedures Surgical History None recorded. Imaging Results Imaging Date Name Status LastModified by Organiz ation Details LastModified Time 10/16/2022 XR, chest completed Information n ot available 10/18/2022 10:41:18 Procedure Notes None recorded. Medical Equipment None Reported. Allergies No known drug allergies Medications Name Sig Start Date Stop Date Status Note LastModified by Organization Details LastModified Time pain relief lidocaine 4% patch 5s APPLY 1 PATCH TOPICALLY DAILY FOR 12 HOURS ON THEN 12 HOURS OFF active Not Available Not Available No t Available amoxicillin 500 mg capsule TAKE 1 CAPSULE THREE TIMES DAILY 10/16 completed Not Available Not Available Not Available azithromyci n 250 mg tablet TAKE 2 TABLETS (500 MG) BY ORAL ROUTE ONCE DAILY FOR 1 DAY THEN 1 TABLET (250 MG) BY ORAL ROUTE ONCE DAILY FOR 4 DAYS active Not Available Not Available No t Available Synthroid 125 mcg tablet TAKE 1 TABLET BY MOUTH DAILY IN THE MORNING active Not Available Not Available No t Available famotidine 40 mg tablet TAKE 1 TABLET BY MOUTH EVERY DAY DIRECTED active Not Available Not Available No t Available amlodipine 2.5 mg tablet TAKE 1 TABLET BY MOUTH AT BEDTIME active Not Available Not Available No t Available amitriptyli ne 50 mg tablet TAKE 1 TABLET BY MOUTH AT BEDTIME active Not Available Not Available No t Available dexamethaso ne 4 mg tablet Take 2 tablets every day by oral route for 2 days. active Not Available Not Available No t Available metoprolol tartrate 50 mg tablet TAKE 1 TABLET BY MOUTH TWICE DAILY active Not Available Not Available No t Available gabapentin 300 mg capsule TAKE 1 CAPSULE BY MOUTH AT BEDTIME active Not Available Not Available No t Available omeprazole 20 mg capsule,del ayed release TAKE 1 CAPSULE BY MOUTH EVERY DAY AT 5 PM active Not Available Not Available No t Available gabapentin 100 mg capsule TAKE 1 CAPSULE BY MOUTH AT BEDTIME active Not Available Not Available No t Available albuterol sulfate HFA 90 mcg/actuati on aerosol inhaler Inhale 2 puffs every 4 hours by inhalatio n route as needed. active Not Available Not Available No t Available fluticasone propionate 50 mcg/actuati on nasal spray,suspe nsion SHAKE LIQUID AND USE 1 SPRAY IN EACH NOSTRIL EVERY DAY 10/16 completed Not Available Not Available Not Available diclofenac 1 % topical gel 10/16 completed Not Available Not Available Not Available Vitals Date Recorded Body height Body mass index (BMI) Body weight Oxygen saturation Oxygen saturation in Arterial blood by Pulse oximetry Heart rate Body temperature Provider Name and Address Organization Details Last Updated DateTime 3 165.1 cm 27.1 kg/m2 40238.5 6 g 98 % 98 % 98 /min 101.8 [degF] Nadia martinez [place] [facility] 3 10:25:15 Social History Question Answer Notes LastModified by [employer] Details LastModified Time Tobacco Smoking Status Never Smoker Nadia JaswantveenaDominguez hemanth [place] [facility] 10/16/2022 09:43:20 Are You Blind Or Do You Have Difficulty Seeing? No Information not available 10/16/2022 Are You Deaf Or Do You Have Serious Difficulty Hearing? No Information not available 10/16/2022 What Was The Date Of Your Most Recent Tobacco Screening? 10/16/2022 Information not available 10/16/2022 Sex: Female Functional Status Question Answer Note LastModified by [employer] Details LastModified Time Do you have difficulty walking or climbing stairs? No Information not available 10/16/2022 Do you have transportation difficulties? No Information not available 10/16/2022 Do you have difficulty doing errands alone? No Information not available 10/16/2022 Are you able to care for yourself? Yes Information not available 10/16/2022 Do you have difficulty dressing or bathing? No Information not available 10/16/2022 Mental Status Question Answer Note LastModified by Organization D etails LastModified Time Do you have difficulty concentrating, remembering or making decisions? No Information no t available 10/16/2022 Family History Nothing Reported. Medical History Condition Response Gout N Erectile Dysfunction N ADD or ADHD N Thyroid Problems Y Anemia N Has Pacemaker N Anxiety Disorder N Arthritis Y Heart Attack N Allergies N GERD/Reflux N High Cholesterol Y Addiction Disorder N Fibromyalgia N Hypertension Y Gynecological History Statement/Question Response Abnormal Pap N Obstetrics History GPAL:G 0 P 0 0 0 0 Past Encounters Encounter ID Performer Location Encounter Start Date Encounter Closed Date Diagnosis/Indication Diagnosis SNOMED-CT Code Diagnosis ICD10 Code Diagnosis Note [id number] CLAY Holley [facility] [place] [address] [place] [address] 10/16/2022 09:02:15 10/16/2022 11:25:37 Lower respiratory tract infection 09129613 J22 X-ray of the chest is suspicious for infiltrati on in the left lower lobe. I will place patient on azithromyc in and also prescribe an albuterol inhaler and a 2-day course of dexamethas one to reduce inflammati on.Patient will be returning home to [facility] tomorrow and I have strongly recommende d follow-up with her primary care provider upon return.Mariely sigala has remained hemodynami maisha stable and without evidence of respirator y distress throughout this urgent care course. Patient agrees with, and demonstrat es a clear understand ing of, current diagnosis and dispositio n. Viral screening 24447594 4 Z11.52 Pt strongly requests testing for Sars-Cov-2 , the result of which is negative; Rapid influenza testing is also negative; The above results were discussed in detail with patient; Patient has remained hemodynami maisha stable and without evidence of respirator y distress throughout this urgent care course. Fever 556970014 R50.9 Patient will continue to manage fever with over-the-c ounter Tylenol. Health Concerns Section Related Observation LastModified by Organization Detai ls LastModified Time None Recorded Concern Status LastModified by Organization Details LastModified Time None Recorded Advance Directives Directive None Recorded Payers Encounter Date Sequence Insurance Name Policy Number Policy Cross Covered Member ID Cross Member ID Guarantor Name 10/16/2022 1 [facility] - DOS PRIOR TO 2022 - MEDICARE [place]AGE [place]PLACEMENT/ADV ANTAGE - PPO) Jaja Garcia [id number] Jaja Garcia Notes Date Note Type Note Provider Name and Address Organization Details Recorded Time 10/16/2022 text/html Pt presents with complaint of a productive cough, nasal congestion, intermittent fever, and fatigue for 6 days. Pt denies known Covid 19 or influenza exposure.Pt denies modifying factors for her symptoms. Pt denies hemoptysis, dyspnea, ageusia, anosmia, loose stool, headache, fever, chills, N/V, or difficulty swallowing. She states appetite and fluid intake are at baseline.There are no further complaints after review of remaining systems. CLAY Holley [address] [facility], [place], [address], [facility] 10/16/2022 11:05:29 OBGyn Episode No OBEpisode recorded.
== END 2024-11-20 10:08 | disposition home or self-care (01) ==
LOC: HO.HVS 09:49
PROVIDERS: PCP Family Medicine; Visit Provider Surgery Vascular Surgery
DX: I73.9 Peripheral vascular disease, unspecified (principal); I65.23 Occlusion and stenosis of bilateral carotid arteries
CPT/HCPCS: 99214

== ENCOUNTER 2024-12-02 08:20 | Outpatient (AMB) | payer MEDICARE, SELFPAY ==
--- NOTE | 2024-12-02 08:24 | MHC.OFFWIV ---
Intake Vital Signs 12/02/24 08:26 Weight 165 lb BP 120/70 Blood Pressure Location Lt brachial Position Sitting Pulse 67 Pulse Source Pulse Oximeter Pulse Oximetry (%) 97 Oxygen Delivery Method Room Air Intake Visit Reasons: EP Vertigo, RT foot concerns Intake Note: Patient here for vertigo that has been present since sunday. she would also like to have her foot pain addressed. Patient Tobacco Use Status: Never used Tobacco Allergies No Known Allergies Allergy (Verified 12/02/24 08:28) Do you need a note to return to daycare/school/sports/work: No HPI HPI Comments History of Present Illness Details This is an 89-year-old female with a past medical history of hypertension, carotid artery disease, hypothyroidism and gastroesophageal reflux disease presenting for evaluation of dizziness that started on Sunday night. Patient states she experienced 3 seconds of room spinning dizziness that has recurred once daily since that time. Patient states she has had a sensation that her left ear is ?blocked? for the past 4-5 months and decreased hearing in her left ear. Patient has never had her hearing formally tested. She denies having any nausea, vomiting, chest pain, visual changes or shortness of breath. Additionally, patient is having intermittent pain on the plantar and lateral surface of her right foot after injuring her left foot some months ago. Patient has not been taking any medication for treatment of this discomfort however states her pain is worse in the morning when she first gets out of bed. [facility] Medical History HTN (hypertension) Plantar fasciitis Hypothyroidism GERD (gastroesophageal reflux disease) Hypercholesteremia Thyroid disease Surgical History History of back surgery Social History Patient Tobacco Use Status: Never used Tobacco Review of Systems Const All systems reviewed & are unremarkable except as noted in HPI and below Reports as per HPI, Denies body aches, Denies chills, Denies fatigue, Denies fever(s), Denies headache(s) and Denies weakness Eyes Reports no additional complaints and Denies change in vision ENT Denies Normal hearing present, Reports dizziness ( room spinning intermittent), Denies ear discharge, Denies otalgia and Denies headache(s) Card Reports no additional complaints Resp Reports no additional complaints GI Reports no additional complaints Reports no additional complaints Musc Reports no additional complaints Skin/Breast Reports system reviewed and no additional complaints, except as documented Neuro Denies Normal hearing present, Reports dizziness ( room spinning intermittent), Denies headache(s) and Denies weakness Psych Reports no additional complaints Endo Reports no additional complaints and Denies fatigue Adam/Lymph Reports no additional complaints Aller/Immun Reports no additional complaints Physical Exam Vital Signs: Last Vital Signs Pulse 67 12/02/24 08:26 BP 120/70 12/02/24 08:26 Pulse Ox 97 12/02/24 08:26 Oxygen Delivery Method Room Air 12/02/24 08:26 Const General: cooperative, healthy appearing, comfortable, no acute distress, well developed, alert, awake and Physically active Nutritional Appearance: well nourished Orientation/consciousness: patient oriented x3 Limitations: no limitations and ambulation with cane HEENT Head: Yes normal to inspection and Yes normocephalic Ears: hearing grossly abnormal bilaterally, TM's normal bilaterally, TM normal on the right, EAC's not normal (dried blood noted right side of left ear canal) and no periauricular adenopathy General nose exam: Normal external nose present Face and sinus: Yes normal facial exam Mouth: Normal oral and palatal mucosa present Throat: Yes posterior oropharynx normal Eyes General: appearance normal, both eyes and all related structures Visual Horvath: normal visual horvath by confrontation Alignment and Position: alignment normal Pupils: Equal, round and reactive pupils present and Pupils normal by confrontation EOM: EOMs intact bilaterally and No Nystagmus present Neuro General: patient oriented x3 Cranial nerves: Yes Equal, round and reactive pupils present, No Normal hearing present and No Nystagmus present Extrem Other: ambulating independently with cane Right lower extremity: normal to inspection, full ROM and normal capillary refill; foot not examined (tenderness to plantar surface of R. calcaneus, base right lateral foot) Psych Appearance: grossly normal Mental Status: mental status grossly normal Insight: Good insight present (Psych) Judgement: Good judgement present (Psych) Assessment & Plan Assessment & Plan (1) Dizziness: Comment: Patient's episodes are infrequent and last less than 5 seconds each. Patient will follow up with ENT as an outpatient. Code(s): R42 - Dizziness and giddiness Plan: ENT evaluation. Meclizine is deferred at this time due to possible sedative affects. Patient is in agreement with this plan of care. (2) Hearing loss: Comment: Recommend formal hearing evaluation Code(s): H91.90 - Unspecified hearing loss, unspecified ear Qualifiers: Hearing loss type: unspecified Laterality: unspecified laterality Qualified Code(s): H91.90 - Unspecified hearing loss, unspecified ear Plan: Patient will consult ENT and request outpatient hearing evaluation. (3) Plantar fasciitis of right foot: Comment: Aleve OTC q.12 hours and ice foot at 10 minute intervals at least twice daily. Code(s): M72.2 - Plantar fascial fibromatosis Plan: Aleve OTC q.12 hours and ice foot at 10 minute intervals at least twice daily. Coding Level of Care Code Est Pt Level 4 (08432) Diagnoses Dizziness R42 Hearing loss, unspecified hearing loss type, unspecified laterality H91.90 Hearing loss type: unspecified Laterality: unspecified laterality Plantar fasciitis of right foot M72.2 Time Spent (min) 25
--- OUTSIDE RECORDS SUMMARY | 2024-12-02 08:24 | XMS_ITS | Data Portability ---
Author Organization [facility] Yomaira MOSS_Ayaz_ Address [address] [place] [address] Care Team Providers Care Central Supply Clerk Name Role Phone ARELIS JACKSON Primary Care Provider Assessment No assessment recorded. Plan of Treatment Reminders Order Date Submit Date Provider Last Modified By Organization Details Last Modified Time Details Appointments None recorded. Lab rapid SARS CoV 2 Ag, QL IA, respiratory specimen 2022 023 [email or web address] 2 In-Office Order, Internal Use Only DO Not Attach Compendium DO Not Attach Compendium, Do Not Delete/merge, [id number] 10:30:56 rapid flu (A+B) 2022 023 [facility] In-Office Order, Internal Use Only DO Not Attach Compendium DO Not Attach Compendium, Do Not Delete/merge, [id number] 10:30:56 Referral None recorded. Procedures None recorded. Surgeries None recorded. Imaging None recorded. Medication Orders Zithromax Z-Salbador 250 mg tablet 2022 023 [facility] [id number], [address] [place], [address], 3 10:31:02 dexamethaso ne 4 mg tablet 2022 023 [facility] [id number], [address] [place], [address], 3 10:31:02 ProAir HFA 90 mcg/actuati on aerosol inhaler 2022 023 OSCAR Das [facility] [id number], [address] [place], [address], 10:31:06 Patient TargetsNo targets recorded. Patient Instructions Encounter Date Encounter Id Patient Instructions Last Modified By Organization Details Last Modified Time 10/16/2022 [id number] learning about fever Not available 10/16/2022 11:04:40 [...] DO Not Attach Compendium, Do Not Delete/merge, [id number] 10/16/2022 09:44:17 10/16/1910/16/2022 rapid flu (A+B) Flu B negati ve Not Available In-Office Order Internal Use Only DO Not Attach Compendium DO Not Attach Compendium, Do Not Delete/merge, [id number] 10/16/2022 09:44:17 10/16/1910/16/2022 rapid SARS CoV 2 Ag, QL IA, respi rator y speci men RAPID Nasal Covid negati ve Not Available In-Office Order Internal Use Only DO Not Attach Compendium DO Not Attach Compendium, Do Not Delete/merge, [id number] 10/16/2022 09:44:12 10/16/1910/16/2022 XR, chest No observ [...] Updated DateTime 3 165.1 cm 27.1 kg/m2 61014.5 6 g 98 % 98 % 98 /min 101.8 [degF] Nadia martinez [place] - [facility] 3 10:25:15 Social History Question Answer Notes LastModified by Gly[employer] Details LastModified Time Tobacco Smoking Status Never [...] Functional Status Question Answer Note LastModified by Gly[employer] Details LastModified Time Do you have difficulty [...] Condition Response Gout N Erectile Dysfunction N Has Pacemaker N Anxiety Disorder N Arthritis Y High Cholesterol Y Fibromyalgia N ADD or ADHD N Thyroid Problems Y Anemia N Heart Attack N Allergies N GERD/Reflux N Addiction Disorder N Hypertension Y Gynecological History Statement/Question Response Abnormal Pap N Obstetrics History GPAL:G 0 P 0 0 0 0 Past Encounters Encounter ID Performer Location Encounter Start Date Encounter Closed Date Diagnosis/Indication Diagnosis SNOMED-CT Code Diagnosis ICD10 Code Diagnosis Note [id number] CLAY Holley [facility] [place] [address] [place] [address] 10/16/2022 09:02:15 10/16/2022 11:25:37 Lower respiratory tract infection 76727086 J22 X-ray of the chest is suspicious for infiltrati on in the left lower lobe. I will place patient on azithromyc in and also prescribe an albuterol inhaler and a 2-day course of dexamethas one to reduce inflammati on.Patient will be returning home to [facility] tomorrow and I have strongly recommende d follow-up with her primary care provider upon return.Mariely sigala has remained hemodynami maisha stable and without evidence of respirator y distress throughout this urgent care course. Patient agrees with, and demonstrat es a clear understand ing of, current diagnosis and dispositio n. Viral screening 64387254 4 Z11.52 Pt strongly requests testing for Sars-Cov-2 , the result of which is negative; Rapid influenza testing is also negative; The above results were discussed in detail with patient; Patient has remained hemodynami maisha stable and without evidence of respirator y distress throughout this urgent care course. Fever 482102985 R50.9 Patient will continue to manage fever with over-the-c ounter Tylenol. Health Concerns Section Related Observation LastModified by Organization Detai ls LastModified Time None Recorded Concern Status LastModified by Organization Details LastModified Time None Recorded Advance Directives Directive None Recorded Payers Encounter Date Sequence Insurance Name Policy Number Policy Cross Covered Member ID Cross Member ID Guarantor Name 10/16/2022 1 [facility] - DOS PRIOR TO 2022 - MEDICARE [place]AGE [place]AC[place]/ADV ANTAGE - PPO) Jaja Garcia [id number] Jaja Garcia Notes Date Note Type Note [...] review of remaining systems. CLAY Holley [address] [facility], [place], [address], [facility] 10/16/2022 11:05:29 OBGyn Episode No OBEpisode recorded.
--- OUTSIDE RECORDS SUMMARY | 2024-12-02 08:24 | XMS_ITS | Data Portability ---
Author Organization [facility] Address [address] [place] [address] Care Team Providers Care Receiving Associate Store Name Role Phone ARELIS JACKSON Primary Care Provider Assessment No assessment recorded. Plan of Treatment Reminders Order Date Submit Date Provider Last Modified By Organization Details Last Modified Time Details Appointments None recorded. Lab None recorded. Referral None recorded. Procedures None recorded. Surgeries None recorded. Imaging None recorded. Medication Orders cephalexin 500 mg capsule 2022 [id number], [address], [place], [id number], 12:12:57 mupirocin 2 % topical ointment 2022 AGELON [id number], [address], [place], [id number], 12:12:56 Patient TargetsNo targets recorded. Patient InstructionsNo instructions recorded. Reason for Referral None Reported. Problems Name Problem SNOMED Code Status Onset Date Resolution Date Notes Provider Name and Address Organization Details Recorded Time Hyperthyroidis m 96643495 Active 2022 Domi saxena, [place] - [facility] 3 11:59:13 Essential hypertension 44808633 Active 2022 Domi saxena, [place] - [facility] 3 11:59:23 Gastroesophage al reflux disease 677287317 Active 2022 Domi saxena, [place] - [facility] 3 11:59:29 Neuropathy 612005288 [facility] 20[facility] 11:[facility]45 Problem Notes None recorded. Medical [...] Address Organization Details Last Updated DateTime 3 61032.7 8 g 26.6 kg/m2 165.1 cm 73 /min 98.1 [degF] 93 % 93 % 120 mm[Hg] 70 mm[Hg] Domi Holden [facility] 3 11:57:03 Social History Question Answer Notes LastModified by Organizat ion Details LastModified Time Tobacco Smoking Status Former Smoker Jelena Rogel NP [address] [place], [address], [facility] 06/19/2023 12:03:28 Do You Have An Advance Directive? No [email or web address] Information n ot available 06/19/2023 What Is Your Level Of Alcohol Consumption? None Information not available 06/19/2023 Are You Currently Sexually Active With Anyone Who Has Traveled (within The Last 12 Weeks) To A Zika-affected Area? No [email or web address] Information not available 06/19/2023 Are You Blind Or Do You Have Difficulty Seeing? No [email or web address] Information n ot available 06/19/2023 How Much Tobacco Do You Chew? None [email or web address] Information not available 06/19/2023 In The 14 Days Before Symptom Onset, Have You Had Close Contact With A Laboratory-confirm ed COVID-19 While That Case Was Ill? No Information n ot available 06/19/2023 In The 14 Days Before Symptom Onset, Have You Had Close Contact With A Person Who Is Under Investigation For COVID-19 While That Person Was Ill? No [email or web address] Information not available 06/19/2023 Have You Been To An Area Known To Be High Risk For COVID-19? No [email or web address] Information not available 06/19/2023 Have You Processed Blood Or Body Fluids From An Ebola Virus Disease Patient Without Appropriate PPE? No [email or web address] Information not available 06/19/2023 Do You Reside In Or Have You Traveled To An Area Where Ebola Virus Transmission Is Active? No [email or web address] Information not available 06/19/2023 How Many Times Per Week Do You Exercise? Less Than 1 Time Per Week [email or web address] Information not available 06/19/2023 Have You Recently Or Are You Planning To Travel To An Area With Zika Virus? No [email or web address] Information not available 06/19/2023 Do You Have Smoke And Carbon Monoxide Detectors In Your Home? Yes [email or web address] Information not available 06/19/2023 Do You Or Have You Ever Used Smokeless Tobacco? Never Used Smokeless Tobacco [email or web address] Information not available 06/19/2023 How Much Tobacco Do You Smoke? No [email or web address] Information not available 06/19/2023 Do You Feel Stressed (tense, Restless, Nervous, Or Anxious, Or Unable To Sleep At Night)? GP2687-3 [email or web address] Information not available 06/19/2023 Do You Use Any Illicit Or Recreational Drugs? No [email or web address] Information not available 06/19/2023 Have You Recently Traveled Abroad? No [email or web address] Information not available 06/19/2023 Sex: Female Functional Status Question Answer Note LastModified by Organization D etails LastModified Time What is your exercise level? Moderate Information not available 06/19/2023 Mental Status None recorded. Family History Nothing Reported. Medical History Condition Response Arthritis Y Thyroid Problems Y Bronchitis Y Osteoporosis Y Gynecological HistoryNo gynecological history recorded. Obstetrics History GPAL:G 0 P 0 0 0 0 Past Encounters Encounter ID Performer Location Encounter Start Date Encounter Closed Date Diagnosis/Indication Diagnosis SNOMED-CT Code Diagnosis ICD10 Code Diagnosis Note [id number] Jelena Rogel NP [facility] [address] [place] [address] 06/19/2023 11:27:57 06/19/2023 12:11:05 Paronychia of toe of left foot 0667156607 9068356 L03.032 warm soaks, bactroban ointment and keflex Acute uppe r respiratory infection 89256256 J06.9 cont. mucinex as needed Health Concerns Section Related Observation LastModified by Organization Detai ls LastModified Time None Recorded Concern Status LastModified by Organization Details LastModified Time None Recorded Advance Directives Directive N: Payers Encounter Date Sequence Insurance Name Policy Number Policy Cross Covered Member ID Cross Member ID Guarantor Name 06/19/2023 1 [place]ARE [place]: [facility] Jaja Garcia [id number] Jaja Garcia 06/19/2023 2 [employer] [place] Jaja Garcia [id number] Jaja Garcia Notes Date Note Type Note [...] swollen and erythemic. Pt here visiting from [place] for 2 months. Jelena Rogel NP [address] [place], [address], [facility] 06/19/2023 12:18:12 OBGyn Episode No OBEpisode recorded.
[2024-12-02 08:26] VITALS: BP 120/70; PULSE 67; O2SAT 97
== END 2024-12-02 09:07 | disposition home or self-care (01) ==
PROVIDERS: PCP Family Medicine; Visit Provider Physician Assistant
DX: R42 Dizziness and giddiness (principal); H91.90 Unspecified hearing loss, unspecified ear; M72.2 Plantar fascial fibromatosis

== ENCOUNTER → 2024-12-02 08:20 | Outpatient (BNVA) | payer MEDICARE, SELFPAY | PROVIDERS: PCP Family Medicine; Visit Provider Physician Assistant | DX: R42 Dizziness and giddiness (principal); H91.90 Unspecified hearing loss, unspecified ear; M72.2 Plantar fascial fibromatosis | CPT/HCPCS: 99212 ==

== ENCOUNTER 2024-12-17 13:38 | Outpatient (AMB) | payer MEDICARE, SELFPAY ==
--- NOTE | 2024-12-17 13:48 | AM.OFFWIN_ITS ---
Intake Vital Signs 12/17/24 13:49 Height 5 ft 5 in Weight 165 lb BMI 27.5 BP 136/64 Blood Pressure Location Lt brachial Position Sitting Respiration 20 Pulse 78 Pulse Source Pulse Oximeter Temp 97.8 F Temp Source Oral Pulse Oximetry (%) 96 Oxygen Delivery Method Room Air Intake Visit Reasons: EP Infection?? Intake Note: Pt is here today for a walk in visit. Pt c/o weakness and cough green mucus. Patient Tobacco Use Status: Never used Tobacco Allergies No Known Allergies Allergy (Verified 12/17/24 13:52) HPI HPI Comments History of Present Illness Details - Patient is an 89-year-old female with a past medical history of HTN, CAD, hypothyroidism and GERD complaining of persistent cough, general weakness, and left ear pain. - The cough persists after a previous CO VID-19 infection, 3-4 years ago, characterized by episodes with sputum production. - The patient experiences generalized we akness, most severe today compared to previous days. - Vertigo was previously assessed weeks ago, with scheduled follow-up via hearing test; no new episodes reported. - Allergic rhinitis managed with Zyrtec and self-reported use of Flonase, though currently managing without exacerbation of symptoms. - Patient denies asthmatic history or CO PD, however she does have a current prescription for inhaler use, since her Covid infection she uses one. - No additional concerns of gastrointest inal upset, pulmonary distress, or significant cardiovascular symptomatology are currently reported. Physical Exam General: Cooperative, healthy appearing, comfortable and no acute distress Orientation/consciousness: Patient oriented x3 Limitations: No limitations Head: Feels blocked Ears: Hearing grossly normal bilaterally, right EAC normal, left EAC bloody, external ears normal and TM's normal bilaterally Nose: Normal external nose present, Normal nares present and No nasal discharge present Face and sinus: Normal facial exam and Yes sinuses nontender Mouth: Normal oral and palatal mucosa present and moist mucous membranes Throat: Yes tonsils normal, Yes uvula midline. Posterior oropharynx erythema Eyes: Appearance normal, both eyes and all related structures Neck: Normal visual inspection Respiratory: Clear to auscultation bilaterally. Normal respiratory effort, able to speak in complete sentences, no respiratory distress, not tachypneic, no tripod positioning and no use of accessory muscles Cardiovascular: Regular rate and rhythm. Normal S1 and S2 Skin: No rashes or lesions noted Neuro: Patient oriented x3 Extremities: Normal to inspection and Yes no clubbing, cyanosis or edema PFSH Medical History HTN (hypertension) Plantar fasciitis Hypothyroidism GERD (gastroesophageal reflux disease) Hypercholesteremia Thyroid disease Surgical History History of back surgery Social History Patient Tobacco Use Status: Never used Tobacco Review of Systems Const All systems reviewed & are unremarkable except as noted in HPI and below Physical Exam Vital Signs: Last Vital Signs Temp 97.8 F 12/17/24 13:49 Pulse 78 12/17/24 13:49 Resp 20 12/17/24 13:49 BP 136/64 12/17/24 13:49 Pulse Ox 96 12/17/24 13:49 Oxygen Delivery Method Room Air 12/17/24 13:49 BMI result Body Mass Index 27.5 Assessment & Plan Assessment & Plan (1) URI, acute: Code(s): J06.9 - Acute upper respiratory infection, unspecified Plan: VSS, pt well appearing and PE unremarkable. The patient's symptomatic complaints were addressed with specific recommendations. For the persistent cough, over-th e-counter decongestants and continued use of antihistamines are advised for symptomatic relief, in conjunction with a cough suppressant for improving nocturnal symptoms. To prevent further complications, instructions to avoid ear probing were provided. Flu, COVID, and RSV tests are ordered to rule out active infections. Management for allergic rhinitis includes ongoing use of Zyrtec and the recommended technique for using Flonase for potential sinus relief. Explained to patient how to properly use Flonase. Follow-up testing results will be communicated, and management adjusted accordingly. The patient?s history of vertigo is pending further evaluation through a scheduled hearing test, with no new interventions at present. Patient was informed and verbally consented to the use of an ambient scribe for clinic note documentation during this visit Orders: Orders SARS-CoV2/FLU/RSV Today R09.89 - Other specified symptoms and signs involving the circulatory and respiratory systems Medications: New benzonatate 200 mg PO BEDTIME PRN 10 caps 0RF cough Coding Level of Care Code Est Pt Level 3 (87191) Diagnoses URI, acute J06.9
[2024-12-17 13:49] VITALS: BP 136/64; PULSE 78; RESP 20; TEMP 36.6; O2SAT 96; BMI 27.5
--- OUTSIDE RECORDS SUMMARY | 2024-12-17 14:56 | XMS_ITS | Data Portability ---
Author Organization [facility] Yomaira MOSS_Ayaz_ Address [address] [place] [address] Care Team Providers Care Supervisor Brake Repair Name Role Phone ARELIS JACKSON Primary Care Provider [phone] Assessment No assessment recorded. Plan of Treatment Reminders Order Date Submit Date Provider Last Modified By Organization Details Last Modified Time Details Appointments None recorded. Lab rapid SARS CoV 2 Ag, QL IA, respiratory specimen 2022 023 [email or web address] 2 In-Office Order, Internal Use Only DO Not Attach Compendium DO Not Attach Compendium, Do Not Delete/merge, [id number] 10:30:56 rapid flu (A+B) 2022 023 [facility] In-Office Order, Internal Use Only DO Not Attach Compendium DO Not Attach Compendium, Do Not Delete/merge, [id number] 10:30:56 Referral None recorded. Procedures None recorded. Surgeries None recorded. Imaging None recorded. Medication Orders Zithromax Z-Salbador 250 mg tablet 2022 023 [facility] [id number], [address] [place], [address], 3 10:31:02 dexamethaso ne 4 mg tablet 2022 023 [facility] [id number], [address] [place], [address], 3 10:31:02 ProAir HFA 90 mcg/actuati on aerosol inhaler 2022 023 [facility] [id number], [address] [place], [address], 10:31:06 Patient TargetsNo targets recorded. Patient Instructions Encounter Date Encounter Id Patient Instructions Last Modified By Organization Details Last Modified Time 10/16/2022 [id number] learning about fever Not available 10/16/2022 11:04:40 [...] DO Not Attach Compendium, Do Not Delete/merge, [id number] 10/16/2022 09:44:17 10/16/1910/16/2022 rapid flu (A+B) Flu B negati ve Not Available In-Office Order Internal Use Only DO Not Attach Compendium DO Not Attach Compendium, Do Not Delete/merge, [id number] 10/16/2022 09:44:17 10/16/1910/16/2022 rapid SARS CoV 2 Ag, QL IA, respi rator y speci men RAPID Nasal Covid negati ve Not Available In-Office Order Internal Use Only DO Not Attach Compendium DO Not Attach Compendium, Do Not Delete/merge, [id number] 10/16/2022 09:44:12 10/16/1910/16/2022 XR, chest No observ [...] Updated DateTime 3 165.1 cm 27.1 kg/m2 94756.5 6 g 98 % 98 % 98 /min 101.8 [degF] Nadia martinez [place] - [facility] 3 10:25:15 Social History Question Answer Notes LastModified by [employer] Details LastModified Time Tobacco Smoking Status Never [...] Functional Status Question Answer Note LastModified by [employer] Details LastModified Time Do you have difficulty [...] SNOMED-CT Code Diagnosis ICD10 Code Diagnosis Note [id number] CLAY Holley [facility] [place] [address] [place] [address] 10/16/2022 09:02:15 10/16/2022 11:25:37 Lower respiratory tract infection 28140995 J22 X-ray of the chest is suspicious for infiltrati on in the left lower lobe. I will place patient on azithromyc in and also prescribe an albuterol inhaler and a 2-day course of dexamethas one to reduce inflammati on.Patient will be returning home to [facility] tomorrow and I have strongly recommende d follow-up with her primary care provider upon return.Mariely sigala has remained hemodynami maisha stable and without evidence of respirator y distress throughout this urgent care course. Patient agrees with, and demonstrat es a clear understand ing of, current diagnosis and dispositio n. Viral screening 79107435 4 Z11.52 Pt strongly requests testing for Sars-Cov-2 , the result of which is negative; Rapid influenza testing is also negative; The above results were discussed in detail with patient; Patient has remained hemodynami maisha stable and without evidence of respirator y distress throughout this urgent care course. Fever 832672676 R50.9 Patient will continue to manage fever with over-the-c ounter Tylenol. Health Concerns Section Related Observation LastModified by Organization Detai ls LastModified Time None Recorded Concern Status LastModified by Organization Details LastModified Time None Recorded Advance Directives Directive None Recorded Payers Encounter Date Sequence Insurance Name Policy Number Policy Cross Covered Member ID Cross Member ID Guarantor Name 10/16/2022 1 [facility] - DOS PRIOR TO 2022 - MEDICARE [place]AGE [place] (MEDICARE REPLACEMENT/ADV ANTAGE - PPO) Jaja Garcia [id number] Jaja Garcia Notes Date Note Type Note [...] review of remaining systems. CLAY Holley [address] [facility], [place], [address], [facility] 10/16/2022 11:05:29 OBGyn Episode No OBEpisode recorded.
--- OUTSIDE RECORDS SUMMARY | 2024-12-17 14:56 | XMS_ITS | Data Portability ---
Author Organization [facility] Address [address] [place] [id number] Care Team Providers Care Kiosk Sales Representative Name Role Phone ARELIS JACKSON Primary Care Provider Assessment No assessment recorded. Plan of Treatment Reminders Order Date Submit Date Provider Last Modified By Organization Details Last Modified Time Details Appointments None recorded. Lab None recorded. Referral None recorded. Procedures None recorded. Surgeries None recorded. Imaging None recorded. Medication Orders cephalexin 500 mg capsule 2022 [id number], [address], [place], [id number], 12:12:57 mupirocin 2 % topical ointment 2022 [id number], [address], [place], [id number], 12:12:56 Patient TargetsNo targets recorded. Patient InstructionsNo instructions recorded. Reason for Referral None Reported. Problems Name Problem SNOMED Code Status Onset Date Resolution Date Notes Provider Name and Address Organization Details Recorded Time Hyperthyroidis m 88249505 Active 2022 Domi saxena, [place] - [facility] 3 11:59:13 Essential hypertension 35892096 Active 2022 Domi [place]ena, [place] - [facility] 3 11:59:23 Gastroesophage al reflux disease 209358000 Active 2022 Domi saxena, [place] - [facility] 3 11:59:29 Neuropathy 402628676 Active 2022 [facility] 11:59:45 Problem Notes None recorded. Medical [...] Address Organization Details Last Updated DateTime 3 19956.7 8 g 26.6 kg/m2 165.1 cm 73 /min 98.1 [degF] 93 % 93 % 120 mm[Hg] 70 mm[Hg] Domi Holden [facility] 3 11:57:03 Social History Question Answer Notes LastModified by Organizat ion Details LastModified Time Tobacco Smoking Status Former Smoker Jelena Rogel NP [address] [place], [address], [facility] 06/19/2023 12:03:28 Do You Have An Advance Directive? No [email or web address] Information n ot available 06/19/2023 What Is Your Level Of Alcohol Consumption? None [email or web address] Information not available 06/19/2023 Are You Currently Sexually Active With Anyone Who Has Traveled (within The Last 12 Weeks) To A Zika-affected Area? No [email or web address] Information not available 06/19/2023 Are You Blind Or Do You Have Difficulty Seeing? No [email or web address] Information n ot available 06/19/2023 How Much Tobacco Do You Chew? None Information not available 06/19/2023 In The 14 Days Before Symptom Onset, Have You Had Close Contact With A Laboratory-confirm ed COVID-19 While That Case Was Ill? No [email or web address] Information n ot available 06/19/2023 In The 14 Days Before Symptom Onset, Have You Had Close Contact With A Person Who Is Under Investigation For COVID-19 While That Person Was Ill? No [email or web address] Information not available 06/19/2023 Have You Been To An Area Known To Be High Risk For COVID-19? No Information not available 06/19/2023 Have You Processed Blood Or Body Fluids From An Ebola Virus Disease Patient Without Appropriate PPE? No [email or web address] Information not available 06/19/2023 Do You Reside In Or Have You Traveled To An Area Where Ebola Virus Transmission Is Active? No [email or web address] Information not available 06/19/2023 How Many Times Per Week Do You Exercise? Less Than 1 Time Per Week Information not available 06/19/2023 Have You Recently Or Are You Planning To Travel To An Area With Zika Virus? No [email or web address] Information not available 06/19/2023 Do You Have Smoke And Carbon Monoxide Detectors In Your Home? Yes [email or web address] Information not available 06/19/2023 Do You Or Have You Ever Used Smokeless Tobacco? Never Used Smokeless Tobacco [email or web address] Information not available 06/19/2023 How Much Tobacco Do You Smoke? No [email or web address] Information not available 06/19/2023 Do You Feel Stressed (tense, Restless, Nervous, Or Anxious, Or Unable To Sleep At Night)? [id number] [email or web address] Information not available 06/19/2023 Do You Use Any Illicit Or Recreational Drugs? No [email or web address] Information not available 06/19/2023 Have You Recently Traveled Abroad? No Information not available 06/19/2023 Sex: Female Functional Status Question Answer Note LastModified by Organization D etails LastModified Time What is your exercise level? Moderate [email or web address] Information not available 06/19/2023 Mental Status None recorded. Family History Nothing Reported. Medical History Condition Response Arthritis Y Thyroid Problems Y Bronchitis Y Osteoporosis Y Gynecological HistoryNo gynecological history recorded. Obstetrics History GPAL:G 0 P 0 0 0 0 Past Encounters Encounter ID Performer Location Encounter Start Date Encounter Closed Date Diagnosis/Indication Diagnosis SNOMED-CT Code Diagnosis ICD10 Code Diagnosis Note [id number] Obinna Phelps MD [facility] [address] [place] [address] 06/19/2023 11:27:57 06/19/2023 12:11:05 Paronychia of toe of left foot 2293139496 4365891 L03.032 warm soaks, bactroban ointment and keflex Acute uppe r respiratory infection 83623186 J06.9 cont. mucinex as needed Health Concerns Section Related Observation LastModified by Organization Detai ls LastModified Time None Recorded Concern Status LastModified by Organization Details LastModified Time None Recorded Advance Directives Directive N: Payers Encounter Date Sequence Insurance Name Policy Number Policy Cross Covered Member ID Cross Member ID Guarantor Name 06/19/2023 1 [place] [employer] Jaja Garcia [id number] Jaja Vines 06/19/2023 2 [employer] [place] (MEDICAID HMO) Jaja Vines [id number] Jaja Vines Notes Date Note Type Note Provider Name [...] swollen and erythemic. Pt here visiting from [place] for 2 months. Jelena Rogel NP [address] [place], [address], [facility] [place] 06/19/2023 12:18:12 OBGyn Episode No OBEpisode recorded.
== END 2024-12-17 14:35 | disposition home or self-care (01) ==
PROVIDERS: PCP Family Medicine; Visit Provider Physician Assistant
DX: J06.9 Acute upper respiratory infection, unspecified (principal)

== ENCOUNTER 2024-12-17 13:38 | Outpatient (REF) | payer MEDICARE, SELFPAY ==
[2024-12-17 17:53] LABS: Influenza A PCR NEGATIVE (Negative); Influenza B PCR NEGATIVE (Negative); Resp Syncy Virus RNA Qual PCR NEGATIVE (Negative); SARS COV2 PCR INHOUSE NEGATIVE (Negative)
== END 2024-12-17 13:39 | disposition home or self-care (01) ==
LOC: HO.LAB 13:38
PROVIDERS: Physician Assistant; PCP Family Medicine
DX: J06.9 Acute upper respiratory infection, unspecified (principal); R09.89 Other specified symptoms and signs involving the circulatory and respiratory systems
CPT/HCPCS: 0241U; 99212

== ENCOUNTER 2025-01-02 08:09 | Outpatient (REF) | payer MEDICARE, SELFPAY ==
--- OUTSIDE RECORDS SUMMARY | 2025-01-02 08:12 | XMS_ITS | Data Portability ---
Author Organization [facility] Address [address] [place] [address] Care Team Providers Care Manager Embalmer Funeral Director Name Role Phone ARELIS JACKSON Primary Care Provider Assessment No assessment recorded. Plan of Treatment Reminders Order Date Submit Date Provider Last Modified By Organization Details Last Modified Time Details Appointments None recorded. Lab None recorded. Referral None recorded. Procedures None recorded. Surgeries None recorded. Imaging None recorded. Medication Orders cephalexin 500 mg capsule 2022 [facility] #[id number], [address], [place], [id number], 12:12:57 mupirocin 2 % topical ointment 2022 [id number], [address], [place], [id number], 12:12:56 Patient TargetsNo targets recorded. Patient InstructionsNo instructions recorded. Reason for Referral None Reported. Problems Name Problem SNOMED Code Status Onset Date Resolution Date Notes Provider Name and Address Organization Details Recorded Time Hyperthyroidis m 57995193 Active 2022 Domi saxena, [place] - [facility] 3 11:59:13 Essential hypertension 52653535 Active 2022 Dom[place], [place] [facility] 3 11:59:23 Gastroesophage al reflux disease 328936439 Active 2022 Domi [place], [place] [facility] 3 11:59:29 Neuropathy 764799220 Active 2022 Domi Holden [facility] 3 11:59:45 Problem Notes None recorded. Medical [...] Address Organization Details Last Updated DateTime 3 57307.7 8 g 26.6 kg/m2 165.1 cm 73 /min 98.1 [degF] 93 % 93 % 120 mm[Hg] 70 mm[Hg] Domi Holden [facility] 3 11:57:03 Social History Question Answer Notes LastModified by Organizat ion Details LastModified Time Tobacco Smoking Status Former Smoker Jelena Rogel NP [address] [place], [address], [facility] 06/19/2023 12:03:28 Do You Have An Advance Directive? No [email or web address] Information n ot available 06/19/2023 Are You Currently Sexually Active With Anyone Who Has Traveled (within The Last 12 Weeks) To A Zika-affected Area? No [email or web address] Information not available 06/19/2023 Are You Blind Or Do You Have Difficulty Seeing? No [email or web address] Information n ot available 06/19/2023 How Much Tobacco Do You Chew? None Information not available 06/19/2023 In The 14 Days Before Symptom Onset, Have You Had Close Contact With A Laboratory-confirm ed COVID-19 While That Case Was Ill? No [email or web address] Information n ot available 06/19/2023 In The 14 Days Before Symptom Onset, Have You Had Close Contact With A Person Who Is Under Investigation For COVID-19 While That Person Was Ill? No [email or web address] Information not available 06/19/2023 Have You Been To An Area Known To Be High Risk For COVID-19? No [email or web address] Information not available 06/19/2023 Have You Processed Blood Or Body Fluids From An Ebola Virus Disease Patient Without Appropriate PPE? No [email or web address] Information not available 06/19/2023 Do You Reside In Or Have You Traveled To An Area Where Ebola Virus Transmission Is Active? No [email or web address] Information not available 06/19/2023 How Many Times Per Week Do You Exercise? Less Than 1 Time Per Week Information not available 06/19/2023 Have You Recently Or Are You Planning To Travel To An Area With Zika Virus? No [email or web address] Information not available 06/19/2023 Do You Have Smoke And Carbon Monoxide Detectors In Your Home? Yes [email or web address] Information not available 06/19/2023 How Much Tobacco Do You Smoke? No [email or web address] Information not available 06/19/2023 Have You Recently Traveled Abroad? No Information not available 06/19/2023 Sex: Female Functional Status Question Answer Note LastModified by Organizat ion Details LastModified Time Do you use any illicit or recreational drugs? No Information not available 06/19/2023 What is your level of alcohol consumption? None [email or web address] Information not available 06/19/2023 Do you or have you ever used smokeless tobacco? Never used smokeless tobacco Information not available 06/19/2023 What is your exercise level? Moderate [email or web address] Information not available 06/19/2023 Mental Status Question Answer Note LastModified by Organization D etails LastModified Time Do you feel stressed (tense, restless, nervous, or anxious, or unable to sleep at night)? [id number] [email or web address] Information not available 06/19/2023 Family History Nothing Reported. Medical History Condition Response Bronchitis Y Arthritis Y Thyroid Problems Y Osteoporosis Y Gynecological HistoryNo gynecological history recorded. Obstetrics History GPAL:G 0 P 0 0 0 0 Past Encounters Encounter ID Performer Location Encounter Start Date Encounter Closed Date Diagnosis/Indication Diagnosis SNOMED-CT Code Diagnosis ICD10 Code Diagnosis Note [id number] Obinna Phelps MD [facility] [address] [place] [address] 06/19/2023 11:27:57 06/19/2023 12:11:05 Paronychia of toe of left foot 4339278458 6704956 L03.032 warm soaks, bactroban ointment and keflex Acute uppe r respiratory infection 81068112 J06.9 cont. mucinex as needed Health Concerns Section Related Observation LastModified by Organization Detai ls LastModified Time None Recorded Concern Status LastModified by Organization Details LastModified Time None Recorded Advance Directives Directive N: Payers Insurance Date Sequence Insurance Name Policy Number Policy Cross Covered Member ID Cross Member ID Guarantor Name 08/21/2023 2 [employer] [place] Jaja Leutsch [id number] Jaja Leutsch 06/22/2023 1 [place] NATIONAL GOVERNMENT SERVICES Jaja M Mohinderch [id number] Jaja Leutsch 08/21/2023 1 [facility] - DOS ON OR AFTER 2022 - SKILLED NURSING OPTIONS AND ONE CARE (MEDICARE REPLACEMENT/AD VANTAGE - PPO) Jaja Leutsch [id number] Jaja Leutsch 06/19/2023 [place] - [place] A - [facility] (MEDICARE) Jaja M Leucheyannech [id number] Jaja Leutsch 08/21/2023 1 [facility] - DOS ON OR AFTER 2022 - MEDIC[place]ANTAGE [place] ([place] REPLACEMENT/AD VANTAGE - PPO) Jaja Leutsch [id number] Jaja Radha Notes Date Note Type Note Provider Name [...] swollen and erythemic. Pt here visiting from [place] for 2 months. Jelena Rogel, [facility] [address] [place], [address], [place] 06/19/2023 12:18:12 OBGyn Episode No OBEpisode recorded.
--- OUTSIDE RECORDS SUMMARY | 2025-01-02 08:12 | XMS_ITS | Data Portability ---
Author Organization [facility] Yomaira MOSS_Ayaz_ Address [address] [place] [address] Care Team Providers Care Time Motion Analyst Name Role Phone ARELIS JACKSON Primary Care Provider Assessment No assessment recorded. Plan of Treatment Reminders Order Date Submit Date Provider Last Modified By Organization Details Last Modified Time Details Appointments None recorded. Lab rapid SARS CoV 2 Ag, QL IA, respiratory specimen 2022 023 [email or web address] 2 In-Office Order, Internal Use Only DO Not Attach Compendium DO Not Attach Compendium, Do Not Delete/merge, [id number] 3 10:30:56 rapid flu (A+B) [address] [facility] In-Office Order, Internal Use Only DO Not Attach Compendium DO Not Attach Compendium, Do Not Delete/merge, [id number] 3 10:30:56 Referral None recorded. Procedures None recorded. Surgeries None recorded. Imaging None recorded. Medication Orders Zithromax Z-Salbador 250 mg tablet 2022 023 [facility] [id number], [address] [place], [address], 3 10:31:02 dexamethaso ne 4 mg tablet 2022 023 [facility] [id number], [address] [place], [address], 3 10:31:02 ProAir HFA 90 mcg/actuati on aerosol inhaler 2022 023 [facility] [id number], [address] [place], [address], 10:31:06 Patient TargetsNo targets recorded. Patient Instructions Encounter Date Encounter Id Patient Instructions Last Modified By Organization Details Last Modified Time 10/16/2022 [id number] learning about fever Not available 10/16/2022 11:04:40 [...] DO Not Attach Compendium, Do Not Delete/merge, [id number] 10/16/2022 09:44:17 10/16/1910/16/2022 rapid flu (A+B) Flu B negati ve Not Available In-Office Order Internal Use Only DO Not Attach Compendium DO Not Attach Compendium, Do Not Delete/merge, [id number] 10/16/2022 09:44:17 10/16/1910/16/2022 rapid SARS CoV 2 Ag, QL IA, respi rator y speci men RAPID Nasal Covid negati ve Not Available In-Office Order Internal Use Only DO Not Attach Compendium DO Not Attach Compendium, Do Not Delete/merge, [id number] 10/16/2022 09:44:12 10/16/1910/16/2022 XR, chest No observ [...] Updated DateTime 3 165.1 cm 27.1 kg/m2 58786.5 6 g 98 % 98 % 98 /min 101.8 [degF] Nadia martinez [place] - [facility] 3 10:25:15 Social History Question Answer Notes LastModified by Organizat [employer] Details LastModified Time Tobacco Smoking Status Never Smoker Nadia JaswantveenaDominguez hemanth [place] - [facility] 10/16/2022 09:43:20 Are You Blind Or Do You Have Difficulty Seeing? No Information not available 10/16/2022 Are You Deaf Or Do You Have Serious Difficulty Hearing? No Information not available 10/16/2022 What Was The Date Of Your Most Recent Tobacco Screening? 10/16/2022 Information not available 10/16/2022 Do You Have Difficulty Walking Or Climbing Stairs? No Information not available 10/16/2022 Sex: Female Functional Status Question Answer Note LastModified by [employer] Details LastModified Time Do you have transportation difficulties? No Information [...] SNOMED-CT Code Diagnosis ICD10 Code Diagnosis Note [id number] CLAY Holley [facility] [place] [address] [place] [address] 10/16/2022 09:02:15 10/16/2022 11:25:37 Lower respiratory tract infection 31106307 J22 X-ray of the chest is suspicious for infiltrati on in the left lower lobe. I will place patient on azithromyc in and also prescribe an albuterol inhaler and a 2-day course of dexamethas one to reduce inflammati on.Patient will be returning home to [facility] tomorrow and I have strongly recommende d follow-up with her primary care provider upon return.Mariely sigala has remained hemodynami maisha stable and without evidence of respirator y distress throughout this urgent care course. Patient agrees with, and demonstrat es a clear understand ing of, current diagnosis and dispositio n. Viral screening 08092550 4 Z11.52 Pt strongly requests testing for Sars-Cov-2 , the result of which is negative; Rapid influenza testing is also negative; The above results were discussed in detail with patient; Patient has remained hemodynami maisha stable and without evidence of respirator y distress throughout this urgent care course. Fever 571967639 R50.9 Patient will continue to manage fever with over-the-c ounter Tylenol. Health Concerns Section Related Observation LastModified by Organization Detai ls LastModified Time None Recorded Concern Status LastModified by Organization Details LastModified Time None Recorded Advance Directives Directive None Recorded Payers Insurance Date Sequence Insurance Name Policy Number Policy Cross Covered Member ID Cross Member ID Guarantor Name 10/16/2022 1 [place] Jaja Garcia [id number] Jaja Garcia 10/16/2022 1 [facility] - DOS PRIOR TO 2022 - MEDICARE [place]ANTAGE [place] (MED[place]ARE REPLACEMENT/ADV ANTAGE - PPO) Jaja Garcia [id number] Jaja Garcia Notes Date Note Type Note [...] review of remaining systems. CLAY Holley [address] [place], [address], [facility] 10/16/2022 11:05:29 OBGyn Episode No OBEpisode recorded.
== END 2025-01-02 08:10 | disposition home or self-care (01) ==
LOC: HO.SH 08:09
PROVIDERS: PCP Family Medicine; Visit Provider Family Medicine
DX: Z01.118 Encounter for examination of ears and hearing with other abnormal findings (principal); H90.3 Sensorineural hearing loss, bilateral
CPT/HCPCS: 92557; 92567

== ENCOUNTER 2025-01-09 11:42 | Outpatient (REF) | payer MEDICARE, SELFPAY ==
--- NOTE | ~2025-01-09 | MM_ITS ---
EXAMINATION: MM SCREENING DIGITAL BREAST TOMOSYNTHESIS, BILATERAL CLINICAL INFORMATION: Screening. Asymptomatic. COMPARISON: Mammography: Comparison is made with available priors TECHNIQUE: Digital breast mammography with tomosynthesis is performed in both the craniocaudal and mediolateral oblique views along with computer-aided detection (CAD). FINDINGS: There are scattered areas of fibroglandular density (ACR BI-RADS breast composition Category b). There are no significant masses, abnormal calcifications, or other abnormalities. MM/MM tomosynthesis screening BI IMPRESSION: No mammographic evidence of malignancy. ASSESSMENT: BI-RADS BI-RADS 1 - Negative RECOMMENDATION: Routine annual mammography screening. 1 year F/U This examination should not preclude the clinical evaluation of a suspicious palpable abnormality. This patient's information was entered into a reminder system with a target due date for their next mammogram. Electronically signed by: Georgie Rodriguez DO 01/17/2025 02:27 PM EDT
--- OUTSIDE RECORDS SUMMARY | 2025-01-09 11:44 | XMS_ITS | Data Portability ---
Author Organization [facility] Yomaira MOSS_Ayaz_ Address [address] [place] [address] Care Team Providers Care County Surveyor Name Role Phone ARELIS JACKSON Primary Care Provider Assessment No assessment recorded. Plan of Treatment Reminders Order Date Submit Date Provider Last Modified By Organization Details Last Modified Time Details Appointments None recorded. Lab rapid SARS CoV 2 Ag, QL IA, respiratory specimen 2022 023 [email or web address] 2 In-Office Order, Internal Use Only DO Not Attach Compendium DO Not Attach Compendium, Do Not Delete/merge, [id number] 3 10:30:56 rapid flu (A+B) 2022 023 [facility] In-Office Order, Internal Use Only DO Not Attach Compendium DO Not Attach Compendium, Do Not Delete/merge, [id number] 3 10:30:56 Referral None recorded. Procedures None recorded. Surgeries None recorded. Imaging None recorded. Medication Orders Zithromax Z-Salbador 250 mg tablet 2022 023 [facility] [id number], [address] [place], [address], 3 10:31:02 dexamethaso ne 4 mg tablet 2022 023 [facility] [id number], [address] [place], [address], 3 10:31:02 ProAir HFA 90 mcg/actuati on aerosol inhaler 2022 023 [facility] [id number], [address] [place], [address], 10:31:06 Patient TargetsNo targets recorded. Patient Instructions Encounter Date Encounter Id Patient Instructions Last Modified By Organization Details Last Modified Time 10/16/2022 [id number] learning about fever Not available 10/16/2022 11:04:40 [...] DO Not Attach Compendium, Do Not Delete/merge, [id number] 10/16/2022 09:44:17 10/16/1910/16/2022 rapid flu (A+B) Flu B negati ve Not Available In-Office Order Internal Use Only DO Not Attach Compendium DO Not Attach Compendium, Do Not Delete/merge, [id number] 10/16/2022 09:44:17 10/16/1910/16/2022 rapid SARS CoV 2 Ag, QL IA, respi rator y speci men RAPID Nasal Covid negati ve Not Available In-Office Order Internal Use Only DO Not Attach Compendium DO Not Attach Compendium, Do Not Delete/merge, [id number] 10/16/2022 09:44:12 10/16/1910/16/2022 XR, chest No observ [...] Updated DateTime 3 165.1 cm 27.1 kg/m2 39282.5 6 g 98 % 98 % 98 /min 101.8 [degF] Nadia martinez [place] - [facility] 3 10:25:15 Social History Question Answer Notes LastModified by Organizat ion Details LastModified Time Tobacco Smoking Status Never [...] Functional Status Question Answer Note LastModified by [employer] Details LastModified Time Do you have transportation [...] SNOMED-CT Code Diagnosis ICD10 Code Diagnosis Note [id number] CLAY Holley [facility] [place] [address] [place] [address] 10/16/2022 09:02:15 10/16/2022 11:25:37 Lower respiratory tract infection 48010462 J22 X-ray of the chest is suspicious for infiltrati on in the left lower lobe. I will place patient on azithromyc in and also prescribe an albuterol inhaler and a 2-day course of dexamethas one to reduce inflammati on.Patient will be returning home to [facility] tomorrow and I have strongly recommende d follow-up with her primary care provider upon return.Mariely sigala has remained hemodynami maisha stable and without evidence of respirator y distress throughout this urgent care course. Patient agrees with, and demonstrat es a clear understand ing of, current diagnosis and dispositio n. Viral screening 86786020 4 Z11.52 Pt strongly requests testing for Sars-Cov-2 , the result of which is negative; Rapid influenza testing is also negative; The above results were discussed in detail with patient; Patient has remained hemodynami maisha stable and without evidence of respirator y distress throughout this urgent care course. Fever 350304492 R50.9 Patient will continue to manage fever [...] Name 10/16/2022 1 [place] Jaja Garcia [id number] Jaja Garcia 10/16/2022 1 [facility] - DOS PRIOR TO 2022 - MEDIC[place]AGE [place] ([place]ICARE REPLACEMENT/ADV ANTAGE - PPO) Jaja Garcia [id number] Jaja Garcia Notes Date Note Type Note [...] review of remaining systems. CLAY Holley [address] [place], [address], [facility] 10/16/2022 11:05:29 OBGyn Episode No OBEpisode recorded.
[2025-01-09 12:45] LABS: Anion Gap 13 (12-20); Blood Urea Nitrogen 16 mg/dL (9-16); Carbon Dioxide 31 mmol/L (22-29); Chloride 102 mmol/L (96-108); Estimated Glomerular Filt Rate > 60; Potassium 4.9 mmol/L (3.3-5.1); Sodium 141 mmol/L (135-145)
[2025-01-09 13:01] LABS: Free T4 (Free Thyroxine) 1.25 ng/dL (0.71-1.85); Thyroid Stimulating Hormone 1.63 uIU/mL (0.32-4.0)
== END 2025-01-09 11:43 | disposition home or self-care (01) ==
LOC: HO.MAMMO 11:42
PROVIDERS: PCP Family Medicine; Visit Provider Family Medicine
DX: Z12.31 Encounter for screening mammogram for malignant neoplasm of breast (principal); I10 Essential (primary) hypertension; E03.9 Hypothyroidism, unspecified
CPT/HCPCS: 36415; 77063; 77067; 80051; 82565; 84439; 84443; 84520

== ENCOUNTER → 2025-01-09 12:30 | Outpatient (BNV) | payer MEDICARE, SELFPAY | PROVIDERS: PCP Family Medicine; Visit Provider Internal Medicine | DX: Z12.31 Encounter for screening mammogram for malignant neoplasm of breast (principal) | CPT/HCPCS: 77063; 77067 ==

== ENCOUNTER 2025-03-03 14:00 | Outpatient (RCR) | payer MEDICARE, SELFPAY ==
[2025-02-23 14:00] VITALS: BP 165/56; PULSE 72; O2SAT 96
--- NOTE | 2025-02-24 08:01 | MHC.PT.EP ---
[facility] [place] [facility] [place] Office [place] Office [address] Nirmal Shen [address] [phone] F: [phone] F: [phone] F: [phone] F: [phone] Physical Therapy Plan of Care Date of Evaluation: 02/24/25 Date of Surgery: Diagnosis: This is an 89 yo female presenting to skilled PT with a script for BPPV, B. Assessment: This is an 89 yo female presenting to skilled PT with a script for BPPV, B. This is an 89-year-old female with a past medical history of hypertension, carotid artery disease, hypothyroidism and gastroesophageal reflux disease presenting for evaluation of dizziness that started in November. Patient was experiencing 3 seconds of room spinning dizziness occurring once daily (this is noted from 12/02 walk in clinic appointment). Patient also stated she had a sensation that her ears were ?blocked? with decreased hearing. Patient had her hearing formally tested and was noted to have 40% decreased hearing B (awaiting hearing aids). She denied having any nausea, vomiting, chest pain, visual changes or shortness of breath. She reports now, that her symptoms are still ongoing but she has learned to cope with them. Examination shows + oculomotor tests with saccades, (-) VBI B, and stiffness with cervical AROM. She was (+) for BPPV with nick-hallpike on the R which resolved on reassessment however patient noted to feel sick after this (this also resolved after a few mins). Balance was not formally assessed due to time but patient notes decreased balance at baseline due to age related changes and peripheral neuropathy. S/S consistent with R PC BPPV and she would benefit from PT 2x/wk for 4wks to address impairments, implement HEP and optimize functional mobility. Frequency and Duration: The patient will be seen 2x/wk for 4wks Short Term Goals: reassess canals Intermediate Goals: I in HEP Negative in all 6 canals for dizziness and nystagmus Return to normal gait pattern without reports fo LOB due to dizziness Treatment Plan: Modalities to reduce pain, spasms and effusion. Manual therapy to restore motion and function. Therapeutic exercise to improve strength and flexibility. Neuromuscular re-education for posture and balance. Therapeutic activities to return to functional activities of daily living. Electronically signed by: Elham Qureshi PT Please sign and return to therapist. Thank you for your referral.
--- NOTE | 2025-04-03 08:37 | MHC.PT.DC ---
[facility] [place] [facility] [place] [facility] [place] Office [address] Nirmal Shen [address] [phone] F: [phone] F: [phone] F: [phone] F: [phone] Physical Therapy Discharge Report Diagnosis: This is an 89 yo female presenting to skilled PT with a script for BPPV, B. Date of Surgery: Date of Evaluation: 02/24/25 Date of Discharge: 04/03/25 Treatments to Date: 3 Cancellations to Date: 0 No Shows to Date: 0 Discharge Status: Achieved Goals Improved Function Discharge Summary: 03/03: Patient was negative in all 6 canals. She demos improved balance no longer needing her cane and feels confident rolling in bed, returning to her daily routines and household tasks. I plan to leave her chart open for 30 days and educated her on closing this then if she does not feel like she needs therapy any longer. Patient has met her goals and appropriate for DC unless symptoms return. Electronically signed by: Elham Qureshi PT Please sign and return to therapist. Thank you for your referral.
== END 2025-04-03 08:38 | disposition home or self-care (01) ==
LOC: HO.PTCHIC 14:00
PROVIDERS: Absent Provider Physician Assistant; PCP Physician Assistant; Referring Provider Physician Assistant; Visit Provider Family Medicine
DX: H81.13 Benign paroxysmal vertigo, bilateral (principal); G45.0 Vertebro-basilar artery syndrome
CPT/HCPCS: 95992; 97110; 97162

== ENCOUNTER 2025-03-23 14:12 | Outpatient (REF) | payer MEDICARE, SELFPAY ==
--- NOTE | ~2025-03-23 | US_ITS ---
EXAMINATION: US EXTRACRANIAL CAROTID DUPLEX, BILATERAL CLINICAL INFORMATION: Hypertension, hyperlipidemia, carotid stenosis COMPARISON: February 18, 2024 and September 13, 2022 TECHNIQUE: Real-time ultrasound and Doppler techniques (integrating B-mode 2-D vascular images, Doppler spectral analysis and color-flow Doppler imaging) were utilized to interrogate the extracranial carotid arteries, the vertebral arteries and proximal subclavian arteries bilaterally. The degree of stenosis is determined by criteria similar to NASCET. FINDINGS: Right Side: 1. There is moderate hard and soft atherosclerotic plaque seen in the bifurcation/proximal ICA region. 2. The common carotid artery PSV proximally is 94 cm/s and distally 74 cm/s. 3. The proximal internal carotid artery velocities are 110 cm/s systolic and 19 cm/s diastolic. 4. The proximal external carotid artery PSV is 500 cm/s. 5. The vertebral artery shows antegrade flow. 6. The subclavian artery waveforms are biphasic. ICA:CCA = 1.2 Left Side: 1. There is moderate atherosclerotic plaque seen in the bifurcation/proximal ICA region. 2. The common carotid artery PSV proximally is 82 cm/s and distally 84 cm/s. 3. The proximal internal carotid artery velocities are 248 cm/s systolic and 59 cm/s diastolic. 4. The proximal external carotid artery PSV is 183 cm/s. 5. The vertebral artery shows antegrade flow. 6. The subclavian artery waveforms are biphasic. ICA:CCA = 3.0 US/US carotid duplex BI IMPRESSION: 1. RIGHT: There is moderate hard and soft plaque in the carotid bulb and extending into the ECA origin without hemodynamically significant stenosis of the internal carotid artery. There is stable hemodynamically significant stenosis of the ECA. 2. LEFT: There is moderate plaque in the carotid bulb with a hemodynamically significant stenosis measuring 50-79% by both peak systolic velocity and ICA/CCA ratio. Peak systolic velocity in the proximal ICA has increased from 196 to 248 cm/s when compared to the most recent prior. However, on the prior from September 13, 2022 peak systolic velocity was 264 cm/s and so overall, stenosis is likely stable. Electronically signed by: Lavell Goode MD 03/23/2025 04:33 PM EDT
--- NOTE | ~2025-03-23 | US_ITS ---
EXAMINATION: US NONINVASIVE ASSESSMENT OF THE lateral LOWER EXTREMITY WITH ARTERIAL DUPLEX AND ANKLE BRACHIAL INDICES (ABIS) CLINICAL INFORMATION: Hypertension, hyperlipidemia and vascular surgery distal thigh COMPARISON: None available ultrasound lower extreme the arterial and JOSE MARTIN with Doppler 02/18/2024 TECHNIQUE: Duplex Doppler techniques with waveform analysis and measurement of velocities in the common femoral, profunda femoris, superficial femoral, popliteal and tibial arteries were performed. In addition, ankle pulse volume recordings, ankle pressure measurements and ankle brachial indices were obtained of the lateral lower extremity arterial system. The study was performed only at rest. FINDINGS: NONINVASIVE ASSESSMENT OF THE ARTERIES OF BILATERAL LOWER EXTREMITIES WITH ABIs: RIGHT LEG: Ankle-brachial index: 0.76. Previous 0.88 RIGHT ANKLE PRESSURES: Peroneal artery: 40 cm/second. DPA 36 cm/second, LEELEE: 98 cm/second LEFT LEG: Ankle-brachial index: 0.81. Previous 0.95 LEFT ANKLE PRESSURES: Peroneal artery: 50 cm/second. DPA: 27 cm/second. LEELEE: 57 cm/second JOSE MARTIN Reference: 0.9 - 1.4 = normal - no significant arterial disease 0.7 - 0.89 = mild peripheral arterial disease 0.51 - 0.69 = moderate peripheral arterial disease 0.50 = severe peripheral arterial disease RIGHT LOWER EXTREMITY DUPLEX ULTRASOUND: Common femoral artery: 170 cm/s. Previous 114.2. Monophasic. Mild stenosis Profunda femoris artery: 257 cm/s. Previous 128.5. Biphasic with moderate stenosis Superficial femoral artery (proximal): 229 cm/s. Previous 106.5. Monophasic with moderate stenosis Superficial femoral artery (mid): 114 cm/s. Previous 138.3. Monophasic Superficial femoral artery (distal): 105 cm/s. Has a stent. Popliteal artery: 94 cm/s. Previous 97.6 Posterior tibial artery: 54 cm/s. Previous 63.9. Direct duplex of right distal SFA stent: [place] artery proximal to the stent: 165 cm/s. Previous 106.5. Mid stent: 132 cm/s. Previous 154.5. Distal stent: 118 cm/s. Previous 139.6 [place] artery distal to the stent: 105 cm/s. Previous 137.6 LEFT LOWER EXTREMITY DUPLEX ULTRASOUND: Common femoral artery: 165 cm/s. Previous 122.7. Biphasic with mild stenosis. Profunda femoris artery: 200 cm/s. Is 146.0. Biphasic with moderate stenosis Superficial femoral artery (proximal): 222 cm/s. Previous 92.8. Biphasic with moderate stenosis Superficial femoral artery (mid): 177 cm/s. Previous 107.8. Biphasic with mild stenosis Superficial femoral artery (distal): 115 cm/s. Previous 139.6. Biphasic Popliteal artery: 121 cm/s. Previous 99.3] biphasic Posterior tibial artery: 74 cm/s previous 99.5. Biphasic US/US arterial duplex BI w/ JOSE MARTIN IMPRESSION: Patent right distal SFA stent with improvement in velocities throughout the stent compared to previous study. Moderate stenosis suspected in bilateral proximal SFA and profunda arteries. There are increased velocities in bilateral proximal SFA and profunda arteries compared to previous suggestive of increased stenosis since the last study Mild increased disease suspected in bilateral popliteal arteries and minimal peripheral arterial disease in bilateral ankle and foot . Electronically signed by: Tejinder Saldaña MD 03/24/2025 08:00 AM EDT
--- OUTSIDE RECORDS SUMMARY | 2025-03-23 14:21 | XMS_ITS | Patient Health Record ---
Author Organization [facility] Address [address] [facility] [place] [address] Care Team Providers Care Practice Lead Name Role Phone Rio Chang MD Primary Care Provider Unavailab bret Kim Hutchison Unavailable [phone] Reason For Referral No Information Medications Medication SIG (Take, Route, Frequency, Duration) Notes Start Date End Date Status Synthroid Active Plastazote innersoles dx neuritis . . .; Duration: . 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 Problem Hammer toe (168649638) Hammer toe (735.4) Active confirmed Plan Of Treatment No Information Insurance Providers Payer Name Payer Address Payer Phone Subscriber Number Group Number Insured Name Patient Relationship to Insured Coverage Start Date Coverage End Date Medicare National [employer] [address] [facility] [address] [id number] Jaja Garcia Self - patient is the insured [facility] Health Care Options [address] [address] [place] [address] [id number] Jaja Garcia Self - patient is the insured Medical (General) History Medical History History ICD Code Arthritis Back,Hip,and Knee pain Thyroid disorder Measles Mumps Chicken pox
== END 2025-03-23 14:13 | disposition home or self-care (01) ==
LOC: HO.US 14:12
PROVIDERS: PCP Physician Assistant; Visit Provider Surgery Vascular Surgery
DX: I73.9 Peripheral vascular disease, unspecified (principal); I65.23 Occlusion and stenosis of bilateral carotid arteries
CPT/HCPCS: 93880; 93922; 93925

== ENCOUNTER → 2025-03-23 14:16 | Outpatient (BNV) | payer MEDICARE, SELFPAY | PROVIDERS: PCP Physician Assistant; Visit Provider Radiology Diagnostic Radiology | DX: I65.23 Occlusion and stenosis of bilateral carotid arteries (principal) | CPT/HCPCS: 93880 ==

== ENCOUNTER 2025-04-17 09:46 | Outpatient (REF) | payer MEDICARE, SELFPAY ==
--- NOTE | ~2025-04-17 | XR_ITS ---
EXAMINATION: XR FOOT, TUCKER 3V CLINICAL INFORMATION: M79.671 - Pain in right foot COMPARISON: None available. TECHNIQUE: AP, lateral, and oblique views of each foot. FINDINGS: RIGHT FOOT: There is diffuse osseous demineralization. There is no fracture, dislocation, or suspicious bone lesion. There is normal alignment. There are arthritic changes in the posterior facet of subtalar joints. Joint spaces appear otherwise maintained. Normal plantar arch. The midfoot appears normal. No soft tissue abnormalities. LEFT FOOT: There is diffuse osseous demineralization. There is no fracture, dislocation, or suspicious bone lesion. There is normal alignment. There are mild degenerative changes at the tarsometatarsal joints. Joint spaces are otherwise maintained. Normal plantar arch. The midfoot and hindfoot appear normal. No soft tissue abnormalities. XR/XR Foot Tucker 3V IMPRESSION: 1. No acute bony abnormalities in either foot. 2. Scattered arthritic changes bilaterally as detailed. Electronically signed by: Freddy Stewart MD 04/17/2025 12:53 PM EDT
== END 2025-04-17 09:47 | disposition home or self-care (01) ==
LOC: HO.HMGCX 09:46
PROVIDERS: PCP Physician Assistant; Visit Provider Physician Assistant
DX: M79.671 Pain in right foot (principal); M79.672 Pain in left foot; I73.9 Peripheral vascular disease, unspecified; M72.2 Plantar fascial fibromatosis; R05.3 Chronic cough; I10 Essential (primary) hypertension; E03.9 Hypothyroidism, unspecified; Z79.82 Long term (current) use of aspirin; Z79.899 Other long term (current) drug therapy
CPT/HCPCS: 73630; 99202

== ENCOUNTER 2025-04-17 09:46 | Outpatient (AMB) | payer MEDICARE, SELFPAY ==
--- NOTE | 2025-04-17 10:01 | A.OFFPC_ITS ---
Vital Signs 04/17/25 10:12 Height 5 ft 2 in Weight 73.482 kg BMI 29.6 BP 120/68 Respiration 16 Pulse 58 Pulse Source Pulse Oximeter Temp 97.8 F Temp Source Temporal Artery Scan Pulse Oximetry (%) 95 Oxygen Delivery Method Room Air Intake Visit Reasons: 3 MO F/UP - RENETTA PT Mess Cook Required: No Accompanied by: Daughter Allergies No Known Allergies Allergy (Verified 04/17/25 10:06) Medication List - Last Reconciled 04/17/25 by CLAY Walter albuterol sulfate 90 mcg/actuation inhalation amitriptyline 50 mg PO BEDTIME amlodipine 2.5 mg PO BEDTIME aspirin 81 mg PO DAILY B-complex with vitamin C 1 cap PO DAILY benzonatate 200 mg PO BEDTIME PRN famotidine 40 mg PO DAILY fluticasone propionate 50 mcg/actuation 1 spray intranasal DAILY loratadine (Allergy Relief (loratadine)) 10 mg PO DAILY magnesium citrate 100 mg PO DAILY meclizine 12.5 mg PO BID PRN metoprolol tartrate 50 mg PO BID spirometers and accessories As directed Synthroid (levothyroxine) 125 mcg PO DAILY NS Tobacco use date assessed: 04/17/25 Fall risk assessment: 2 + Falls in past year Last assessed Fall Risk: 04/17/25 Dental Screening Dental Screen Date: 04/17/25 Did you have a dental visit in the last 12 months?: Yes Did you have a dental problem in the last 6 months where you did not have access to dental care?: No Was dental information given to patient?: No HPI HPI Comments History of Present Illness Details 89-year-old female with history of hypot hyroidism, hypertension, peripheral arterial disease, GERD presents to the office today accompanied by her daughter for management of chronic conditions and to establish care. Hypertension-compliant with amlodipine 2.5 mg, metoprolol 50 mg twice daily. Blood pressure in the office 120/68 PAD-following with Dr. Tobin. S/p stents 2020. On baby aspirin. No statin Hypothyroidism-Synthroid 125 mcg daily Peripheral neuropathy-on amitriptyline Chronic cough-ongoing for 4 years since COVID-19. Responds well to albuterol. Does also report some sputum production that she feels and trachea Concerns: Pain in the right foot-had a mechanical fall tripping over a dog bed about 1 year ago. Since then has had pain at the base of her heel as well as the lateral aspect of the right foot. Has also had some neuropathic pain in the lower 3rd of the left lower leg where she previously had a gash following the fall which has healed nicely. Has not seen Podiatry. ROS: General: No fevers, malaise, unintentional weight loss HEENT: No blurred vision, diplopia. No sore throat, nasal congestion, rhinorrhea, sinus pain, ear pain Cardiovascular: No chest pain, palpitations, or leg edema Respiratory: No shortness of breath, wheezing, cough GI: No abdominal pain, nausea, vomiting, diarrhea, constipation, melena, hematochezia : No dysuria, hematuria, increased urinary frequency, decreased urinary output MSK: No myalgia, back pain. See HPI Neuro: No headaches, weakness, paresthesias. See HPI Skin: No rashes or lesions EXAM: Constitutional - Awake and Alert, No apparent distress Eyes - PERRL Cardiovascular - S1S2, RRR, No edema Respiratory - Normal lung expansion, Normal respiratory effort, No respiratory distress, CTA bilaterally Extremities - no calf tenderness bilaterally, no swelling. L great toe slightly cool with appropriate cap refill. 1+ pedal pulses. Lateral aspect of the right foot with some tenderness to palpation. Full range of motion Skin - Warm/Dry. Speckled discoloration in L great toes Neurological - Alert & oriented x3 Psychological - Appropriate affect PFSH Medical History HTN (hypertension) Plantar fasciitis Hypothyroidism GERD (gastroesophageal reflux disease) Hypercholesteremia Thyroid disease Surgical History History of back surgery Social History Housing: House Patient Tobacco Use Status: Former Tobacco user (Quite in s) e-Cigarette/Vaping Use: Never Used service: No Current occupational status: retired Cognitive needs: Yes (Cane PRN) Hearing needs: Yes (Bilateral ) Vision needs: Yes (Rx glasses) Questionnaire PHQ-9 Over the last 2 weeks, how often have you been bothered by any of the following problems? 1. Little interest or pleasure in doing things: not at all 2. Feeling down, depressed, or hopeless: not at all 3. Trouble falling or staying asleep, or sleeping too much: not at all 4. Feeling tired or having little energy: not at all 5. Poor appetite or overeating: not at all 6. Feeling bad about yourself - or that you are a failure or have let yourself or your family down: not at all 7. Trouble concentrating on things, such as reading the newspaper or watching television: not at all 8. Moving or speaking so slowly that other people could have noticed. Or the opposite - being so fidgety or restless that you have been moving around a lot more than usual: not at all 9. Thoughts that you would be better off or of hurting yourself in some way: not at all Total score: 0 Source: Developed by Drs. Bandar Gonzalez, Laura Cantrell, Eduardo Hernandez and colleagues, with an educational cipriano from [employer]. Thrive Questionnaire Date Thrive assessed: 04/17/25 I am a: Patient What is your living situation today?: I have a steady place to live Within the past 12 months, did the food you bought not last and you didn't have the money to get more?: Never true Within the past 12 months, did you worry whether your food would run out before you got money to buy more?: Never true Do you have trouble paying for medicines?: No Do you have trouble getting transportation to medical appointments?: No Do you have trouble paying your heating and electricity bill?: No Do you have trouble taking care of your child, family member or friend?: No Do you have trouble with day-to-day activities such as bathing, preparing meals, shopping, managing finances, etc.?: No Are you currently unemployed and looking for a job?: No Are you interested in more education?: No Please select the resources that you would like help with: None THRIVE Score: 0 LUÍS-7 AMB Questionnaire LUÍS-7 Date LUÍS - 7 assessed: 04/17/25 Feeling nervous, anxious, or on edge: 0 = Not at all Not being able to stop or control worryin = Not at all Worrying too much about different things: 0 = Not at all Trouble relaxin = Not at all Being so restless that it is hard to sit still: 0 = Not at all Becoming easily annoyed or irritable: 0 = Not at all Feeling afraid as if something awful might happen: 0 = Not at all Total LUÍS-7 score (0-4 normal; 5-9 mild; 10-14 moderate; 15-21 severe): 0 Source: Developed by Drs. Bandar Gonzalez, Laura Cantrell, Eduardo Hernandez and colleagues, with an educational cipriano from [employer]. Physical exam (Primary Care) Vital Signs: Last Vital Signs Temp 97.8 F 04/17/25 10:12 Pulse 58 04/17/25 10:12 Resp 16 04/17/25 10:12 BP 120/68 04/17/25 10:12 Pulse Ox 95 04/17/25 10:12 Oxygen Delivery Method Room Air 04/17/25 10:12 BMI result Body Mass Index 29.6 Tobacco/Smoking Status: Tobacco use Status Tobacco use date assessed 04/17/25 04/17/25 10:16 Patient Tobacco Use Status Former Tobacco user (Quite 04/17/25 10:16 in 1970's) e-Cigarette/Vaping Use Never Used 04/17/25 10:16 PHQ-9: PHQ-9 Score PHQ-9: Total score 0 04/17/25 10:16 Thrive Assessment: Date of Thrive Assessment Date Thrive assessed 04/17/25 04/17/25 10:16 Coding Level of Care Code New Pt Level 4 (07213) Complex EM visit Add On G2211 Diagnoses Hypothyroidism E03.9 HTN (hypertension) I10 PAD (peripheral artery disease) I73.9 Plantar fasciitis of right foot M72.2 Bilateral foot pain M79.671; M79.672 Assessment & Plan Assessment & Plan (1) Hypothyroidism: Code(s): E03.9 - Hypothyroidism, unspecified Category: Medical Plan: TSH ordered. Continue levothyroxine (2) HTN (hypertension): Code(s): I10 - Essential (primary) hypertension Category: Medical Plan: Controlled. Continue amlodipine and metoprolol (3) PAD (peripheral artery disease): Comment: 04/20/2021 - right posterior tibial plasty, right SFA stent, left common iliac stent Code(s): I73.9 - Peripheral vascular disease, unspecified Category: Medical Plan: Well-perfused. Follow-up with Dr. Tobin as scheduled. Continue baby aspirin (4) Plantar fasciitis of right foot: Comment: Aleve OTC q.12 hours and ice foot at 10 minute intervals at least twice daily. Code(s): M72.2 - Plantar fascial fibromatosis Category: Medical Plan: Recommend foot insert. Follow-up with podiatry (5) Bilateral foot pain: Code(s): M79.671 - Pain in right foot; M79.672 - Pain in left foot Category: Medical Plan: XR ordered. Follow up with Podiatry Plan Follow-up in 6 months. Labs to be completed in 2 months Orders: Orders XR Foot Tucker 3V 2 Months I10 - Essential (primary) hypertension, I73.9 - Peripheral vascular disease, unspecified, M72.2 - Plantar fascial fibromatosis, M79.671 - Pain in right foot, M79.672 - Pain in left foot, R05.3 - Chronic cough Basic Metabolic Panel 2 Months E03.9 - Hypothyroidism, unspecified, I10 - Essential (primary) hypertension, I73.9 - Peripheral vascular disease, unspecified, M72.2 - Plantar fascial fibromatosis, M79.671 - Pain in right foot, M79.672 - Pain in left foot TSH reflex Free T4 2 Months E03.9 - Hypothyroidism, unspecified, I10 - Essential (primary) hypertension, I73.9 - Peripheral vascular disease, unspecified, M72.2 - Plantar fascial fibromatosis, M79.671 - Pain in right foot, M79.672 - Pain in left foot Referrals Podiatry Referral M72.2 - Plantar fascial fibromatosis, M79.671 - Pain in right foot, M79.672 - Pain in left foot Medications: New loratadine (Allergy Relief (loratadine)) 10 mg PO DAILY 90 caps 1RF
[2025-04-17 10:12] VITALS: BP 120/68; PULSE 58; RESP 16; TEMP 36.6; O2SAT 95; BMI 29.6
--- OUTSIDE RECORDS SUMMARY | 2025-04-17 10:31 | XMS_ITS | Patient Health Record ---
Author Organization [facility] Address [address] [place] [address] Care Team Providers Care Dance Costume Designer Name Role Phone Rio Chang MD Primary Care Provider Unavailab bret Kim Hutchison Unavailable [phone] Reason For Referral No Information Medications Medication SIG (Take, Route, Frequency, Duration) Notes Start Date End Date Status Synthroid Active Plastazote innersoles dx neuritis . . .; Duration: . 09/14/2014 Active Gabapentin 300 MG Orally No t-Taking Problems Problem Type SNOMED Code ICD Code Onset Dates Problem Status W/U Status Risk Notes Problem Pain in limb (31239687) Pain in Limb (729.5) Active confirmed Problem Neuralgia - Neuritis (729.2) Active confirmed Problem Hammer toe (865932114) Hammer toe (735.4) Active confirmed Plan Of Treatment No Information Insurance Providers Payer Name Payer Address Payer Phone Subscriber Number Group Number Insured Name Patient Relationship to Insured Coverage Start Date Coverage End Date Medicare National [employer] [address] [place] [address] [id number] Jaja Garcia Self - patient is the insured [facility] [employer] Options [address] [address] [place] [address] [id number] Jaja Garcia Self - patient is the insured Medical (General) History Medical History History ICD Code Arthritis Back,Hip,and Knee pain Thyroid disorder Measles Mumps Chicken pox
== END 2025-04-17 10:45 | disposition home or self-care (01) ==
LOC: HO.HMCHD 09:47
PROVIDERS: PCP Family Medicine; Visit Provider Physician Assistant
DX: E03.9 Hypothyroidism, unspecified (principal); I10 Essential (primary) hypertension; I73.9 Peripheral vascular disease, unspecified; M72.2 Plantar fascial fibromatosis; M79.671 Pain in right foot; M79.672 Pain in left foot

== ENCOUNTER → 2025-04-17 11:14 | Outpatient (BNV) | payer MEDICARE, SELFPAY | PROVIDERS: PCP Physician Assistant; Visit Provider Radiology Diagnostic Radiology | DX: M79.671 Pain in right foot (principal) | CPT/HCPCS: 73630 ==

== ENCOUNTER 2025-04-24 09:27 | Outpatient (AMB) | payer MEDICARE, SELFPAY ==
--- NOTE | 2025-04-24 09:40 | A.OFFVIS_ITS ---
Vital Signs 04/24/25 09:41 Height 5 ft 2 in Weight 162 lb BMI 29.6 Intake Visit Reasons: New Pt - bilateral foot pain/plantar fasciitis Intake Note: Jaja is a 89 year old female who presents today as a new patient for an evaluation of her right foot pain. Patient states ongoing pain for about 1 year . Patient states she had an injury to her right foot due to tripping over a dog bed about a year ago. She mentions her pain is at the base of her heel as well as the lateral aspect of the right foot. She has tried and Tylenol for the pain which has provided relief. FINDINGS: RIGHT FOOT: There is diffuse osseous demineralization. There is no fracture, dislocation, or suspicious bone lesion. There is normal alignment. There are arthritic changes in the posterior facet of subtalar joints. Joint spaces appear otherwise maintained. Normal plantar arch. The midfoot appears normal. No soft tissue abnormalities. LEFT FOOT: There is diffuse osseous demineralization. There is no fracture, dislocation, or suspicious bone lesion. There is normal alignment. There are mild degenerative changes at the tarsometatarsal joints. Joint spaces are otherwise maintained. Normal plantar arch. The midfoot and hindfoot appear normal. No soft tissue abnormalities. IMPRESSION: 1. No acute bony abnormalities in either foot. 2. Scattered arthritic changes bilaterally as detailed. Allergies No Known Allergies Allergy (Verified 04/24/25 09:41) Medication List - Last Reconciled 04/24/25 by Tonio aPlomares DPM albuterol sulfate 90 mcg/actuation inhalation amitriptyline 50 mg PO BEDTIME amlodipine 2.5 mg PO BEDTIME aspirin 81 mg PO DAILY B-complex with vitamin C 1 cap PO DAILY benzonatate 200 mg PO BEDTIME PRN famotidine 40 mg PO DAILY fluticasone propionate 50 mcg/actuation 1 spray intranasal DAILY loratadine (Allergy Relief (loratadine)) 10 mg PO DAILY magnesium citrate 100 mg PO DAILY meclizine 12.5 mg PO BID PRN metoprolol tartrate 50 mg PO BID spirometers and accessories As directed Synthroid (levothyroxine) 125 mcg PO DAILY NS HPI HPI New Pt - bilateral foot pain/plantar fasciitis: Details: 89-year-old female with history of hypothyroidism, hypertension, bilateral peripheral arterial disease, GERD presents to the office today accompanied by her daughter for initial evaluation of chronic right ankle pain. She had a mechanical fall tripping over a dog bed about 1 year ago and injured her left foot. She states that she thinks she has been walking differently on her right foot since then. She also complains of hip and knee stiffness which she thinks might cause her to compensate with her ankle. Her pain is worse when ambulating or when resting with her ankle turned out. She states this has been going on for the past year. She has not tried any therapy or treatment so far. She has a history of cortisone injection to her right knee. [facility] Medical History (Updated 04/24/25 @ 10:10 by Tonio Palomares DPM) Bilateral foot pain HTN (hypertension) Plantar fasciitis Hypothyroidism GERD (gastroesophageal reflux disease) Hypercholesteremia Thyroid disease Surgical History History of back surgery Social History Housing: House Patient Tobacco Use Status: Former Tobacco user (Quite in 1969's) e-Cigarette/Vaping Use: Never Used service: No Current occupational status: retired Cognitive needs: Yes (Cane PRN) Hearing needs: Yes (Bilateral ) Vision needs: Yes (Rx glasses) Review of Systems Const All systems reviewed & are unremarkable except as noted in HPI and below Musc Details: Right ankle pain Physical Exam Vital Signs: BMI result Body Mass Index 29.6 Extrem Other: *Bilateral Lower Extremity Focused Exam Vascular: dp/pt 1/4 bilaterally, CFT<3s to digits, no pedal edema, TG warm to cool, varicositiies bilateral lower extremities Derm: no open wounds or lacerations Neuro: Protective sensation grossly intact to bilateral lower extremities MSK: Mild tenderness on palpation along the peroneal tendons along the retromalleolar groove, mild tenderness on resisted eversion, mild tenderness on passive inversion. High arch in resting position, Moderate to high arch on weight-bearing. No heel varus on weight-bearing exam. Ankle range of motion 0 degrees neutral on knee extension and flexion. Results Reviewed Results Reviewed: X-ray right foot 3 views (AP, MO, Lateral) reviewed which shows diffuse osteopenia, severe narrowing of the tarsometatarsal joints 1 through 5 and the midfoot. no fractures, dislocations, or gross abnormalities. Normal anatomy. No evidence of swelling, foreign body, or calcifications. High calcaneal inclination angle. X-ray left foot 3 views (AP, MO, Lateral) reviewed which shows diffuse osteopenia, severe narrowing of the tarsometatarsal joints 1 through 5 and the midfoot. no fractures, dislocations, or gross abnormalities. Normal anatomy. No evidence of swelling, foreign body, or calcifications. High calcaneal inclination angle. Assessment & Plan Assessment & Plan (1) Peroneal tendonitis of right lower extremity: Code(s): M76.71 - Peroneal tendinitis, right leg Category: Medical Plan: * Differential diagnosis includes peroneal tendonitis versus tendon tear versus sinus tarsi syndrome. * Reviewed bilateral x-rays with the patient and family. * Recommended cortisone injection which the patient deferred at this time. * Patient is not able to have NSAIDs due to GERD. Recommended tylenol for pain symptoms. * Referred for physical therapy. Recommended at home range of motion and stretching exercises. * Recommended more supportive shoe-wear with ankle support. * Recommended over the counter orthotics. * Recommended ankle compression sleeve when ambulating long distances. * Will plan for a cortisone injection next visit if symptoms do not improve. Orders: Orders PT Evaluation and Treatment Today M76.71 - Peroneal tendinitis, right leg Coding Level of Care Code Est Pt Level 3 (09483) Diagnoses Peroneal tendonitis of right lower extremity M76.71 Time Spent (min) 35
[2025-04-24 09:41] VITALS: BMI 29.6
--- OUTSIDE RECORDS SUMMARY | 2025-04-24 10:09 | XMS_ITS | Patient Health Record ---
[facility] Address [address] [place] [address] Care Team Providers Care Special Delivery Worker Name Role Phone Rio Chang MD Primary Care Provider Unavailab bret Kim Hutchison Unavailable [phone] Reason For Referral No Information Medications Medication SIG (Take, Route, Frequency, Duration) Notes Start Date End Date Status Synthroid Active Plastazote innersoles dx neuritis . . .; Duration: . 09/14/2014 Active Gabapentin 300 MG Orally No t-Taking Problems Problem Type SNOMED Code ICD Code Onset Dates Problem Status W/U Status Risk Notes Problem Pain in limb (06823273) Pain in Limb (729.5) Active confirmed Problem Neuralgia - Neuritis (729.2) Active confirmed Problem Hammer toe (620347944) Hammer toe (735.4) Active confirmed Plan Of Treatment No Information Insurance Providers Payer Name Payer Address Payer Phone Subscriber Number Group Number Insured Name Patient Relationship to Insured Coverage Start Date Coverage End Date Medicare [employer] [address] [facility] [place] [address] [id number] Jaja Garcia Self - patient is the insured [facility] Health Care Options [address] [address] [place] [address] [id number] Jaja Garcia Self - patient is the insured Medical (General) History Medical History History ICD Code Arthritis Back,Hip,and Knee pain Thyroid disorder Measles Mumps Chicken pox
== END 2025-04-24 10:20 | disposition home or self-care (01) ==
LOC: HO.HPODS 09:28
PROVIDERS: PCP Physician Assistant; Visit Provider Student in an Organized Health Care Education/Training Program
DX: M76.71 Peroneal tendinitis, right leg (principal)
CPT/HCPCS: 99203

== ENCOUNTER → 2025-04-24 09:27 | Outpatient (BNVA) | payer MEDICARE, SELFPAY | PROVIDERS: PCP Physician Assistant; Visit Provider Student in an Organized Health Care Education/Training Program | DX: M76.71 Peroneal tendinitis, right leg (principal) | CPT/HCPCS: 99202 ==

== ENCOUNTER 2025-05-05 10:44 | Outpatient (AMB) | payer MEDICARE, SELFPAY ==
[2025-05-05 10:57] VITALS: BMI 29.6
--- NOTE | 2025-05-05 10:57 | A.OFFVIS_ITS ---
Vital Signs 05/05/25 10:57 Height 5 ft 2 in Weight 162 lb BMI 29.6 Intake Visit Reasons: 3m follow up s/p Arterial/Carotid US 03/23/25 Intake Note: 3 mo follow up ARterial US and carotid US 03/23/25. Pt has no complaints besides her right foot, which she is seeing podiatry for. 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 She usually has annual surveillance follow-up with us. She has been doing fairly well. She denies any lateralizing signs or symptoms. She is able to carry out her daily activities without any significant difficulty. She is quite spry actually for an 89-year- old female. She is being maintained on an aspirin [facility] Medical History Bilateral foot pain HTN (hypertension) Plantar fasciitis Hypothyroidism GERD (gastroesophageal reflux disease) Hypercholesteremia Thyroid disease Surgical History History of back surgery Social History Housing: House Patient Tobacco Use Status: Former Tobacco user (Quite in s) e-Cigarette/Vaping Use: Never Used service: No Current occupational status: retired Cognitive needs: Yes (Cane PRN) Hearing needs: Yes (Bilateral ) Vision needs: Yes (Rx glasses) Review of Systems Const All systems reviewed & are unremarkable except as noted in HPI and below Reports no additional complaints ENT Reports Normal hearing present Card Denies chest pain, Denies chest pain at rest, Denies chest pain with activity and Denies pedal edema Resp Denies cough GI Denies abdominal pain Musc Denies abnormal gait, Denies muscle cramps and Denies radiating pain into limb Skin/Breast Denies skin ulcer and Denies wounds Neuro Reports Normal hearing present and Denies abnormal gait Psych Reports no additional complaints Physical Exam Vital Signs: BMI result Body Mass Index 29.6 Const General: cooperative, healthy appearing and comfortable Orientation/consciousness: oriented to person, oriented to place and oriented to time HEENT Head: Yes normal to inspection Neck Neck: Yes normal visual inspection Carotids: no bruits Chest Chest palpation & inspection: normal inspection of the chest Resp Effort & Inspection: normal respiratory effort and able to speak in complete sentences Auscultation: clear to auscultation bilaterally, no crackles, no rales, no rhonchi and no wheezes Cardio Other: Bilateral palpable dorsalis pedis pulses Rate: regular rate Rhythm: regular rhythm Heart sounds: S1 normal heart sound present and S2 normal heart sound present Bruits: no carotid bruits Peripheral pulses: Peripheral pulses 2+ throughout GI Inspection: Yes normal to inspection Skin Wounds: no wounds Hair: normal Neuro General: oriented to person, oriented to place and oriented to time Cranial nerves: Yes CN's II-XII intact bilaterally and Yes Normal hearing present Cognition (Neuro): normal cognition Motor exam (neuro): 5/5 motor strength present throughout Extrem Other: venous exam: No significant superficial varicosities or spider telangiectasias, minimal edema General: No clubbing, No cyanosis and No edema Psych Appearance: grossly normal Mental Status: mental status grossly normal Speech and movement: Normal speech and movement present Results Reviewed Results Reviewed: Noninvasive arterial testing dated 03/23/2025 demonstrates JOSE MARTIN on the right of 0.76 and on the left of 0.71. Carotid testing 03/23/2025 demonstrates right-sided 0-49% left side 50-79% with a peak systolic of 248. Assessment & Plan Assessment & Plan (1) PAD (peripheral artery disease): Comment: 04/20/2021 - right posterior tibial plasty, right SFA stent, left common iliac stent Code(s): I73.9 - Peripheral vascular disease, unspecified Category: Medical Plan: In short patient has stable claudication. I did review the pathophysiology of peripheral vascular disease with the patient. In addition we did discuss routine conservative measures including a healthy diet and the importance of exercise and ambulation. We did discuss risk factor modification. The patient will continue to to follow-up with surveillance follow-up in approximately 1 year. Thank you for allowing us to participate in this patient's care. If there are any questions or concerns please do not hesitate to contact us. (2) Carotid stenosis: Code(s): I65.29 - Occlusion and stenosis of unspecified carotid artery Category: Medical Qualifiers: Laterality: bilateral Qualified Code(s): I65.23 - Occlusion and stenosis of bilateral carotid arteries Plan: In short patient has asymptomatic carotid disease. We have reviewed signs and symptoms of a stroke. We also discussed risk factor modification inclusive a healthy diet low in cholesterol. The patient will follow up with us with surveillance ultrasound of the carotids 1 year. Should there be any changes or signs or symptoms of a stroke we will be happy to see them back sooner. Thank you for allowing us to participate in this patient's care. If there are any questions or concerns please do not hesitate to contact us. Plan Patient was informed and verbally consented to the use of an ambient scribe for clinic note documentation during this visit. Orders: Orders US carotid duplex BI 1 Year I65.23 - Occlusion and stenosis of bilateral carotid arteries US arterial duplex LE BI 1 Year I73.9 - Peripheral vascular disease, unspecified Coding Level of Care Code Est Pt Level 4 (18844) Diagnoses PAD (peripheral artery disease) I73.9 Bilateral carotid artery stenosis I65.23 Laterality: bilateral
--- OUTSIDE RECORDS SUMMARY | 2025-05-05 14:21 | XMS_ITS | Patient Health Record ---
Author Organization [facility] Address [address] [place] [address] Care Team Providers Care Roping Tender Name Role Phone Rio Chang MD Primary Care Provider Unavailab bret Kim Hutchison Unavailable [phone] Reason For Referral No Information Medications Medication SIG (Take, Route, Frequency, Duration) Notes Start Date End Date Status Synthroid Active Plastazote innersoles dx neuritis . . .; Duration: . 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) Active confirmed Problem Hammer toe (191274205) Hammer toe (735.4) Active confirmed Plan Of Treatment No Information Insurance Providers Payer Name Payer Address Payer Phone Subscriber Number Group Number Insured Name Patient Relationship to Insured Coverage Start Date Coverage End Date Medicare National [employer] [address] [place] [address] [id number] Jaja Garcia Self - patient is the insured [facility] Health Care Options [address] [address] [place] [address] [id number] Jaja Garcia Self - patient is the insured Medical (General) History Medical History History ICD Code Arthritis Back,Hip,and Knee pain Thyroid disorder Measles Mumps Chicken pox
== END 2025-05-05 11:51 | disposition home or self-care (01) ==
LOC: HO.HVS 10:45
PROVIDERS: PCP Physician Assistant; Visit Provider Surgery Vascular Surgery
DX: I73.9 Peripheral vascular disease, unspecified (principal); I65.23 Occlusion and stenosis of bilateral carotid arteries
CPT/HCPCS: 99214

== ENCOUNTER → 2025-05-05 10:44 | Outpatient (BNVA) | payer MEDICARE, SELFPAY | PROVIDERS: PCP Physician Assistant; Visit Provider Surgery Vascular Surgery | DX: I65.23 Occlusion and stenosis of bilateral carotid arteries (principal); I73.9 Peripheral vascular disease, unspecified | CPT/HCPCS: 99212 ==

== ENCOUNTER 2025-05-28 13:40 | Outpatient (AMB) | payer MEDICARE, SELFPAY ==
--- NOTE | 2025-05-28 13:55 | A.OFFVIS_ITS ---
Vital Signs 05/28/25 13:58 Height 5 ft 2 in Weight 162 lb BMI 29.6 Intake Visit Reasons: Ov - Right Peroneal Tendonitis Intake Note: Jaja is an 89 year old female who presents today for a follow up of her Right Peroneal Tendonitis. At the last visit an injection was recommended but decline by patient. A Referral for Physical Therapy was placed and patient was intere sted in attending an outside facility.. It was also recommended that she get OTC orthotics and ankle sleeve. Pt states she has been following the exercises sheet and she purchased supportive shoe wear and she sees improvement for her pain, However she has not made an appointment with PT at this time. Allergies No Known Allergies Allergy (Verified 05/28/25 13:58) HPI HPI Ov - Right Peroneal Tendonitis: Details: 89-year-old female with history of hypothyroidism, hypertension, bilateral peripheral arterial disease, GERD returns for 1 month follow up of chronic right ankle pain, accompanied by her daughter. She mentions that she purchased the new shoes that she was recommended and has been performing the range of motion exercises daily. She notes that her pain as nearly entirely subsided unless she is doing a lot of walking. History: She had a mechanical fall tripping over a dog bed about 1 year ago and injured her left foot. She states that she thinks she has been walking differently on her right foot since then. She also complains of hip and knee st iffness which she thinks might cause her to compensate with her ankle. Her pain is worse when ambulating or when resting with her ankle turned out. She states this has been going on for the past year. She has a history of cortisone injection to her right knee. [facility] Medical History Bilateral foot pain HTN (hypertension) Plantar fasciitis Hypothyroidism GERD (gastroesophageal reflux disease) Hypercholesteremia Thyroid disease Surgical History History of back surgery Social History Housing: House Patient Tobacco Use Status: Former Tobacco user (Quite in s) e-Cigarette/Vaping Use: Never Used service: No Current occupational status: retired Cognitive needs: Yes (Cane PRN) Hearing needs: Yes (Bilateral ) Vision needs: Yes (Rx glasses) Review of Systems Const All systems reviewed & are unremarkable except as noted in HPI and below Physical Exam Vital Signs: BMI result Body Mass Index 29.6 Extrem Other: *Bilateral Lower Extremity Focused Exam Vascular: dp/pt 1/4 bilaterally, CFT<3s to digits, no pedal edema, TG warm to cool, varicositiies bilateral lower extremities Derm: no open wounds or lacerations Neuro: Protective sensation grossly intact to bilateral lower extremities MSK: No tenderness on palpation along the peroneal tendons along the retromalleolar groove, No tenderness on resisted eversion, mild tenderness on passive inversion. High arch in resting position, Moderate to high arch on weight-bearing. No heel varus on weight-bearing exam. Ankle range of motion 0 degrees neutral on knee extension and flexion. Assessment & Plan Assessment & Plan (1) Peroneal tendonitis of right lower extremity: Code(s): M76.71 - Peroneal tendinitis, right leg Category: Medical Plan: * Differential diagnosis includes peroneal tendonitis versus tendon tear versus sinus tarsi syndrome. * Previously reviewed bilateral x-rays with the patient and family. * Recommended cortisone injection which the patient deferred at this time. * Continue at home range of motion and stretching exercises. * Continue supportive shoe-wear. * Recommended ankle compression sleeve when ambulating long distances. * Follow up in 3-6 months. Coding Level of Care Code Est Pt Level 3 (30793) Diagnoses Peroneal tendonitis of right lower extremity M76.71 Time Spent (min) 30
[2025-05-28 13:58] VITALS: BMI 29.6
== END 2025-05-28 14:05 | disposition home or self-care (01) ==
LOC: HO.HPODS 13:41
PROVIDERS: PCP Family Medicine; Visit Provider Student in an Organized Health Care Education/Training Program
DX: M76.71 Peroneal tendinitis, right leg (principal)
CPT/HCPCS: 99214

== ENCOUNTER → 2025-05-28 13:40 | Outpatient (BNVA) | payer MEDICARE, SELFPAY | PROVIDERS: PCP Family Medicine; Visit Provider Student in an Organized Health Care Education/Training Program | DX: M76.71 Peroneal tendinitis, right leg (principal) | CPT/HCPCS: 99212 ==

== ENCOUNTER 2025-06-08 13:22 | Outpatient (REF) | payer MEDICARE, SELFPAY ==
[2025-06-08 16:56] LABS: Anion Gap 15 (12-20); Blood Urea Nitrogen 16 mg/dL (9-16); Calcium 9.7 mg/dL (8.4-10.2); Carbon Dioxide 29 mmol/L (22-29); Chloride 103 mmol/L (96-108); Estimated Glomerular Filt Rate 57; Potassium 4.9 mmol/L (3.3-5.1); Sodium 142 mmol/L (135-145)
[2025-06-08 20:06] LABS: Free T4 (Free Thyroxine) 1.14 ng/dL (0.71-1.85)
== END 2025-06-08 13:23 | disposition home or self-care (01) ==
LOC: HO.HMGCLDS 13:22
PROVIDERS: PCP Physician Assistant; Visit Provider Physician Assistant
DX: I10 Essential (primary) hypertension (principal); E03.9 Hypothyroidism, unspecified; I73.9 Peripheral vascular disease, unspecified; M72.2 Plantar fascial fibromatosis; M79.671 Pain in right foot; M79.672 Pain in left foot
CPT/HCPCS: 36415; 80048; 84439; 84443